=== PATIENT | male | born 1965 | race Caucasian/White ===

== ENCOUNTER 2017-05-25 08:57 | Inpatient (IN) | payer OTHER ==
[2017-05-25] MEDS: BUDESONIDE 1 MG/2 ML NEBU INHALATION STA ×2 (09:08→09:10)
[2017-05-25] MEDS: IPRATROPIUM-ALBUTEROL 3 ML NEB INHALATION STA (09:09)
[2017-05-25] MEDS ORDERED: methylPREDNISolone SOD SUCCI 125 MG/2 ML VIAL IV STA (09:11)
[2017-05-25] MEDS ORDERED: ALBUTEROL NEBULIZED 2.5 MG/3 ML INHALATION STA (09:11)
[2017-05-25] MEDS ORDERED: SODIUM CHLORIDE 0.9% 1,000 ML IV STA (09:11)
[2017-05-25] MEDS ORDERED: IPRATROPIUM 0.5 MG/2.5 ML NEBU INHALATION STA (09:11)
[2017-05-25] MEDS ORDERED: AZITHROMYCIN 500 MG in SODIUM CHLORIDE 0.9% 250 ML IVPB STA (09:11)
[2017-05-25 09:37] LABS: Basophils # (A) 0.1 k/uL (0-0.2); Basophils % (A) 1 %; Eosinophils # (A) 0.6 k/uL (0-0.7); Eosinophils % (A) 7 %; HCT 47.5 % (39.0-53.0); HGB 16.3 gm/dL (13.0-17.5); Lymphocytes # (A) 1.8 k/uL (1.0-4.8); Lymphocytes % (A) 22 %; MCH 31.1 pg (25.0-35.0); MCHC 34.3 g/dL (31.0-37.0); MCV 90.8 fL (80.0-100.0); Mean Platelet Volume 6.9; Monocytes # (A) 0.5 k/uL (0-1.0); Monocytes % (A) 7 %; Neutrophils % (A) 61 %; Platelet Count 238 k/uL (150-450); RBC 5.23 m/uL (4.30-5.90); RDW 12.3 % (11.5-15.5); WBC 8.3 k/uL (3.8-10.6)
[2017-05-25 09:45] LABS: ALT 53 U/L (21-72); AST 40 U/L (17-59); Albumin 4.5 g/dL (3.5-5.0); Alkaline Phosphatase 114 U/L (38-126); Anion Gap 15 mmol/L; Blood Urea Nitrogen 11 mg/dL (9-20); Calcium 9.7 mg/dL (8.4-10.2); Carbon Dioxide 21 mmol/L (22-30); Chloride 109 mmol/L (98-107); Glucose 101 mg/dL (74-99); Sodium 145 mmol/L (137-145); Total Bilirubin 0.4 mg/dL (0.2-1.3); Total Protein 7.4 g/dL (6.3-8.2)
[2017-05-25 09:54] LABS: Creatine Kinase 56 U/L (55-170)
[2017-05-25 09:56] LABS: ABG Base Excess -0.4 mmol/L; ABG HCO3 25 mmol/L (21-25); ABG Oxygen Saturation 96.5 % (94-97); ABG PCO2 41 mmHg (35-45); ABG PH 7.38 (7.35-7.45); ABG PO2 98 mmHg (83-108); ABG TCO2 26 mmol/L (19-24)
[2017-05-25 09:59] LABS: D-Dimer 0.48 mg/L FEU (<0.60); Partial Thromboplastin Time 21.7 sec (22.0-30.0); Prothrombin Time 9.6 sec (9.0-12.0)
--- NOTE | 2017-05-25 09:59 | ED ---
SOB HPI - General Chief Complaint: Shortness of Breath Stated Complaint: loan, copd Time Seen by Provider: 05/25/17 09:07 Source: patient Mode of arrival: EMS Limitations: no limitations - History of Present Illness Initial Comments: 51 years old male comes in with a shortness of breath he said shortness of breath is a chronic he been smoking down since he was a very little boy any more than 40 years and now is complaining about the chest pain he been coughing up a bunch of phlegm and it does hurt to take a deep breath and cough he denies any abdominal pain no frequency urgency dysuria no symptoms of TIA or CVA - Related Data Home Medications Medication Instructions Recorded Confirmed Albuterol Inhaler [Ventolin Hfa 1 - 2 puff INHALATION RT-Q4H PRN 05/25/17 Inhaler] Ipratropium/Albuterol Sulfate 1 puff INHALATION RT-BID PRN 05/25/17 05/25/17 [Combivent Respimat Inhaler] Omeprazole 20 mg PO DAILY 05/25/17 05/25/17 Allergies Allergy/AdvReac Type Severity Reaction Status Date / Time No Known Allergies Allergy Verified 05/25/17 09:54 Review of Systems ROS Statement: Those systems with pertinent positive or pertinent negative responses have been documented in the HPI. ROS Other: All systems not noted in ROS Statement are negative. Past Medical History Past Medical History: COPD, Hypertension History of Any Multi-Drug Resistant Organisms: None Reported Past Surgical History: Hernia Repair Additional Past Surgical History / Comment(s): Head injury, Past Psychological History: No Psychological Hx Reported Smoking Status: Former smoker Past Alcohol Use History: Daily Past Drug Use History: None Reported General Exam - General Exam Comments Initial Comments: General: The patient is awake , it is in severe distress he is using his accessory muscles respiratory rate is 32 Skin: Skin is warm and dry and no rashes or lesions are noted. Eye: Pupils are equal, round and reactive to light, extra-ocular movements are intact; there is normal conjunctiva bilaterally. Ears, nose, mouth and throat: There are moist mucous membranes and no oral lesions. Neck: The neck is supple, there is no tenderness Cardiovascular: There is a regular rate and rhythm. No murmur, rub or gallop is appreciated. Noticed tachycardia heart rate is 126 Respiratory: To auscultation bilateral, poor air exchange crackles on the right base using accessory muscles Gastrointestinal: Soft, non-distended, non-tender abdomen without masses or organomegaly noted. There is no rebound or guarding present. Bowel sounds are unremarkable. Back: There is no tenderness to palpation in the midline. There is no obvious deformity. Musculoskeletal: Normal ROM, no tenderness, There is no pedal edema. There is no calf tenderness or swelling. No cords were appreciated. Neurological: CN II-XII intact, Cranial nerves III through XII are intact. There are no obvious motor or sensory deficits. Coordination appears grossly intact. Speech is normal. Psychiatric: Cooperative, appropriate mood & affect, normal judgment. Limitations: no limitations Course Vital Signs 05/25/17 05/25/17 05/25/17 09:01 09:05 09:24 Temperature 97.4 F L Pulse Rate 126 H 126 H 122 H Respiratory 32 H Rate Blood Pressure 190/125 O2 Sat by Pulse 92 L Oximetry 05/25/17 05/25/17 05/25/17 09:50 09:55 10:37 Temperature Pulse Rate 120 H 121 H 128 H Respiratory 24 Rate Blood Pressure 167/109 O2 Sat by Pulse 98 Oximetry EKG is sinus tachycardia ventricular rate is 126 OK interval is 140 QRS duration is 86 QT/QTC 300/434 review of this EKG reveals T-wave inversion in lead [address] elevation noticed no ST depression noticed Medical Decision Making - Lab Data Result diagrams: 05/25/17 09:19 05/25/17 09:19 Lab Results 05/25/17 05/25/17 05/25/17 Range/Units 08:55 09:19 09:19 WBC 8.3 (3.8-10.6) k/uL RBC 5.23 (4.30-5.90) m/uL Hgb 16.3 (13.0-17.5) gm/dL Hct 47.5 (39.0-53.0) % MCV 90.8 (80.0-100.0) fL MCH 31.1 (25.0-35.0) pg MCHC 34.3 (31.0-37.0) g/dL RDW 12.3 (11.5-15.5) % Plt Count 238 (150-450) k/uL Neutrophils % 61 % Lymphocytes % 22 % Monocytes % 7 % Eosinophils % 7 % Basophils % 1 % Neutrophils # 5.0 (1.3-7.7) k/uL Lymphocytes # 1.8 (1.0-4.8) k/uL Monocytes # 0.5 (0-1.0) k/uL Eosinophils # 0.6 (0-0.7) k/uL Basophils # 0.1 (0-0.2) k/uL PT (9.0-12.0) sec INR (<1.2) APTT (22.0-30.0) sec D-Dimer (<0.60) mg/L FEU Sample Site rt radial ABG pH 7.38 (7.35-7.45) ABG pCO2 41 (35-45) mmHg ABG pO2 98 (83-108) mmHg ABG HCO3 25 (21-25) mmol/L ABG Total CO2 26 H (19-24) mmol/L ABG O2 Saturation 96.5 (94-97) % ABG Base Excess -0.4 mmol/L Jeremiah Test Yes FiO2 40 % Sodium (137-145) mmol/L Potassium (3.5-5.1) mmol/L Chloride (98-107) mmol/L Carbon Dioxide (22-30) mmol/L Anion Gap mmol/L BUN (9-20) mg/dL Creatinine (0.66-1.25) mg/dL Est GFR (CKD-EPI)AfAm (>60 ml/min/1.73 sqM) Est GFR (CKD-EPI)NonAf (>60 ml/min/1.73 sqM) Glucose (74-99) mg/dL Calcium (8.4-10.2) mg/dL Total Bilirubin (0.2-1.3) mg/dL AST (17-59) U/L ALT (21-72) U/L Alkaline Phosphatase (38-126) U/L Total Creatine Kinase 56 (55-170) U/L CK-MB (CK-2) 1.8 (0.0-2.4) ng/mL CK-MB (CK-2) Rel Index 3.2 Troponin I <0.012 (0.000-0.034) ng/mL NT-Pro-B Natriuret Pep pg/mL Total Protein (6.3-8.2) g/dL Albumin (3.5-5.0) g/dL 05/25/17 05/25/17 05/25/17 Range/Units 09:19 09:19 09:19 WBC (3.8-10.6) k/uL RBC (4.30-5.90) m/uL Hgb (13.0-17.5) gm/dL Hct (39.0-53.0) % MCV (80.0-100.0) fL MCH (25.0-35.0) pg MCHC (31.0-37.0) g/dL RDW (11.5-15.5) % Plt Count (150-450) k/uL Neutrophils % % Lymphocytes % % Monocytes % % Eosinophils % % Basophils % % Neutrophils # (1.3-7.7) k/uL Lymphocytes # (1.0-4.8) k/uL Monocytes # (0-1.0) k/uL Eosinophils # (0-0.7) k/uL Basophils # (0-0.2) k/uL PT 9.6 (9.0-12.0) sec INR 1.0 (<1.2) APTT 21.7 L (22.0-30.0) sec D-Dimer 0.48 (<0.60) mg/L FEU Sample Site ABG pH (7.35-7.45) ABG pCO2 (35-45) mmHg ABG pO2 (83-108) mmHg ABG HCO3 (21-25) mmol/L ABG Total CO2 (19-24) mmol/L ABG O2 Saturation (94-97) % ABG Base Excess mmol/L Jeremiah Test FiO2 % Sodium 145 (137-145) mmol/L Potassium 5.0 (3.5-5.1) mmol/L Chloride 109 H (98-107) mmol/L Carbon Dioxide 21 L (22-30) mmol/L Anion Gap 15 mmol/L BUN 11 (9-20) mg/dL Creatinine 0.73 (0.66-1.25) mg/dL Est GFR (CKD-EPI)AfAm >90 (>60 ml/min/1.73 sqM) Est GFR (CKD-EPI)NonAf >90 (>60 ml/min/1.73 sqM) Glucose 101 H (74-99) mg/dL Calcium 9.7 (8.4-10.2) mg/dL Total Bilirubin 0.4 (0.2-1.3) mg/dL AST 40 (17-59) U/L ALT 53 (21-72) U/L Alkaline Phosphatase 114 (38-126) U/L Total Creatine Kinase (55-170) U/L CK-MB (CK-2) (0.0-2.4) ng/mL CK-MB (CK-2) Rel Index Troponin I (0.000-0.034) ng/mL NT-Pro-B Natriuret Pep 39 pg/mL Total Protein 7.4 (6.3-8.2) g/dL Albumin 4.5 (3.5-5.0) g/dL Critical Care Time Total Critical Care Time: 60 Critical Care Time: Arrival his respiratory rate was 32 pulse was 126 and he was using accessory muscles at all is a candidate a BiPAP we did the quick ABGs they were not that bad we started him on a prolonged neb treatments with albuterol and Atrovent and Pulmicort that helped him tremendously within the labs no labs were reviewed CBC is normal, BS metabolic metabolic panel is unremarkable troponin EKG are good chest x-ray showed pneumonia, d-dimer is unremarkable is on the ABGs he be admitted to Dr. Bush service the Dr. Causey he be consulted as a ocular pathologist for him we start him on some antibiotics he still has tachycardia heart rate is 110) he has a prolonged treatment with albuterol were given some fluids and antibiotics to Cover gram-negative and gram-positive and atypical Disposition Clinical Impression: Respiratory distress, Tachycardia, Tachypnea, Pneumonia Disposition: ADMITTED IP TO THIS HOSP Condition: Good Referrals: David Cotto MD [Primary Care Provider] - 1-2 days
[2017-05-25] MEDS ORDERED: SODIUM CHLORIDE 0.9% 1,000 ML IV ONE (10:00)
[2017-05-25 10:08] LABS: Creatine Kinase MB 1.8 ng/mL (0.0-2.4); Troponin I <0.012 ng/mL (0.000-0.034)
--- NOTE | 2017-05-25 10:08 | XR ---
EXAMINATION TYPE: XR chest 2V DATE OF EXAM: 05/25/2017 COMPARISON: NONE INDICATION: Difficulty breathing, dyspnea TECHNIQUE: Frontal and lateral views of the chest are obtained. FINDINGS: The heart size is normal. The pulmonary vasculature is normal. There is a lingular infiltrate present with silhouetting of the cardiac apex. Correlate for atelectas is or pneumonia. Follow-up is recommended. There is some hyperinflation flattening the diaphragms sug gestive of COPD. IMPRESSION: 1. Suspicion of a lingular infiltrate. Correlate for atelectasis or pneumonia. 2. COPD
[2017-05-25] MEDS ORDERED: ENALAPRILAT 1.25 MG/ML 1 ML VIAL IVP STA (11:07)
[2017-05-25] MEDS: methylPREDNISolone SOD SUCCI 125 MG/2 ML VIAL IV SCH ×3 (13:33→23:03)
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
[2017-05-25] MEDS ORDERED: THIAMINE 100 MG/ML 2 ML VIAL IM STA (14:57)
[2017-05-25] MEDS ORDERED: LORazepam 2 MG/ML INJ IV PRN ×2 (14:57)
[2017-05-25] MEDS: IPRATROPIUM-ALBUTEROL 3 ML NEB INHALATION SCH ×2 (15:21→19:00)
[2017-05-25] MEDS: LOSARTAN 25 MG TAB PO SCH (16:03)
[2017-05-25 16:50] LABS: Glucose,Whole Blood 150 mg/dL (75-99)
[2017-05-25] MEDS ORDERED: THIAMINE 100 MG TAB PO SCH (17:00)
[2017-05-25] MEDS: INSULIN ASPART 100 UNIT/ML 1 ML 10 ML VIAL SQ SCH ×2 (17:42→20:46)
[2017-05-25] MEDS: guaiFENesin SYRUP 100MG/5ML 200 MG/10 ML CUP PO PRN (17:42)
[2017-05-25] MEDS: BUDESONIDE 0.5 MG/2 ML NEBU INHALATION SCH (19:00)
[2017-05-25 20:35] LABS: Glucose,Whole Blood 153 mg/dL (75-99)
[2017-05-25] MEDS: HEPARIN SODIUM,PORCINE 5,000 UNIT/ML 1 ML VIAL SQ SCH (20:46)
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
[2017-05-26] MEDS: IPRATROPIUM-ALBUTEROL 3 ML NEB INHALATION PRN (03:07)
[2017-05-26] MEDS: methylPREDNISolone SOD SUCCI 125 MG/2 ML VIAL IV SCH ×4 (05:52→23:38)
[2017-05-26] MEDS: BUDESONIDE 0.5 MG/2 ML NEBU INHALATION SCH ×2 (07:01→20:02)
[2017-05-26] MEDS: IPRATROPIUM-ALBUTEROL 3 ML NEB INHALATION SCH ×4 (07:01→20:02)
[2017-05-26 07:09] LABS: Glucose,Whole Blood 157 mg/dL (75-99)
--- NOTE | 2017-05-26 07:46 | XR ---
EXAMINATION TYPE: XR chest 1V portable DATE OF EXAM: 05/26/2017 Comparison: 05/25/2021 Clinical History: 51-year-old male with left lower lobe pneumonia Findings: Heart normal size. Aorta and pulmonary vasculature within normal limits. Slight increased patchy righ t upper lobe density. Density along the cardiac apex appears slightly more pronounced. Hyperinflation . Impression: COPD and slightly more confluent left basilar density. Some subtle new patchy right upper lobe densit y. Pneumonia not excluded.
[2017-05-26 07:57] LABS: Basophils % (A) 0 %; Eosinophils # (A) 0.1 k/uL (0-0.7); Eosinophils % (A) 1 %; HCT 44.9 % (39.0-53.0); HGB 15.1 gm/dL (13.0-17.5); Lymphocytes # (A) 0.9 k/uL (1.0-4.8); Lymphocytes % (A) 7 %; MCH 30.5 pg (25.0-35.0); MCHC 33.5 g/dL (31.0-37.0); MCV 90.9 fL (80.0-100.0); Mean Platelet Volume 6.8; Monocytes # (A) 0.4 k/uL (0-1.0); Monocytes % (A) 3 %; Neutrophils # (A) 11.7 k/uL (1.3-7.7); Neutrophils % (A) 89 %; Platelet Count 213 k/uL (150-450); RBC 4.94 m/uL (4.30-5.90); RDW 12.2 % (11.5-15.5); WBC 13.1 k/uL (3.8-10.6)
[2017-05-26 08:11] LABS: ALT 41 U/L (21-72); AST 21 U/L (17-59); Albumin 4.1 g/dL (3.5-5.0); Alkaline Phosphatase 101 U/L (38-126); Anion Gap 12 mmol/L; Blood Urea Nitrogen 10 mg/dL (9-20); Calcium 9.2 mg/dL (8.4-10.2); Carbon Dioxide 22 mmol/L (22-30); Chloride 105 mmol/L (98-107); Glucose 150 mg/dL (74-99); Potassium 4.3 mmol/L (3.5-5.1); Sodium 139 mmol/L (137-145); Total Bilirubin 0.4 mg/dL (0.2-1.3); Total Protein 6.7 g/dL (6.3-8.2)
[2017-05-26] MEDS: INSULIN ASPART 100 UNIT/ML 1 ML 10 ML VIAL SQ SCH ×4 (08:19→21:43)
[2017-05-26] MEDS: LOSARTAN 25 MG TAB PO SCH (08:19)
[2017-05-26] MEDS: cefTRIAXone IN SWFI 1,000 MG/10 ML SYRINGE IVP SCH (08:19)
[2017-05-26] MEDS: HEPARIN SODIUM,PORCINE 5,000 UNIT/ML 1 ML VIAL SQ SCH ×2 (08:19→21:43)
[2017-05-26] MEDS: PANTOPRAZOLE 40 MG TABLET PO SCH (08:19)
[2017-05-26] MEDS: guaiFENesin SYRUP 100MG/5ML 200 MG/10 ML CUP PO PRN (08:19)
[2017-05-26] MEDS ORDERED: AZITHROMYCIN 250 MG TAB PO SCH (09:00)
[2017-05-26 12:30] LABS: Glucose,Whole Blood 128 mg/dL (75-99)
--- NOTE | 2017-05-26 15:13 | P.PN ---
Subjective Progress Note Date: 05/26/17 Principal diagnosis: Left lower lobe and right upper lobe pneumonia, acute COPD exacerbation, history of extensive amount of alcohol consumption, uncontrolled hypertension, acute hypoxic respiratory failure 05/26/2017, patient seen eval reexamined his chest x-ray done at the time admission and today's x-ray reviewed and compared with the prior x-ray patient appears to have a bilateral pneumonia involving the left lower lobe and right upper lobe his blood pressure on 25 mg of Cozaar is basically more stable and improved he still very short of breath get tightness in the chest and wheezing on minimal activity and exertion, care plan discussed with the daughter present at bedside at length Objective - Vital Signs Vital signs: Vital Signs Temp 97.0 F L 05/26/17 06:33 Pulse 86 05/26/17 11:38 Resp 16 05/26/17 06:33 BP 146/87 05/26/17 06:33 Pulse Ox 97 05/26/17 06:33 Intake & Output 05/25/17 05/26/17 05/26/17 18:59 06:59 18:59 Intake Total 300 1299 Output Total 2200 1999 Balance -1900 -701 Weight 65.771 kg Intake: Intake, IV Titration 300 1299 Amount Sodium Chloride 0.9% 1, 300 50 000 ml @ 100 mls/hr IV . Q10H STA Rx#:[id number] Sodium Chloride 0.9% 1, 999 000 ml @ 999 mls/hr IV . Q1H1M ONE Rx#:[id number] cefTAZidime 1 gm In 250 Sodium Chloride 0.9% 50 ml @ 100 mls/hr IVPB ONCE STA Rx#:[id number] Output: Urine 2200 1999 Other: # Voids 6 - Exam General: The patient is awake , it is in severe distress he is using his accessory muscles respiratory rate is 32 Skin: Skin is warm and dry and no rashes or lesions are noted. Eye: Pupils are equal, round and reactive to light, extra-ocular movements are intact; there is normal conjunctiva bilaterally. Ears, nose, mouth and throat: There are moist mucous membranes and no oral lesions. Neck: The neck is supple, there is no tenderness Cardiovascular: There is a regular rate and rhythm. No murmur, rub or gallop is appreciated. Noticed tachycardia heart rate is 126 Respiratory: To auscultation bilateral, poor air exchange crackles on the right base using accessory muscles inspiratory expiratory wheezing and rhonchi are present with coarse breath sounds Gastrointestinal: Soft, non-distended, non-tender abdomen without masses or organomegaly noted. There is no rebound or guarding present. Bowel sounds are unremarkable. Back: There is no tenderness to palpation in the midline. There is no obvious deformity. Musculoskeletal: Normal ROM, no tenderness, There is no pedal edema. There is no calf tenderness or swelling. No cords were appreciated. Neurological: CN II-XII intact, Cranial nerves III through XII are intact. There are no obvious motor or sensory deficits. Coordination appears grossly intact. Speech is normal. Psychiatric: Cooperative, appropriate mood & affect, normal judgment. - Labs CBC & Chem 7: 05/26/17 07:38 05/26/17 07:38 Labs: Abnormal Lab Results - Last 24 Hours (Table) 05/25/17 05/25/17 05/26/17 Range/Units 16:46 20:33 07:02 WBC (3.8-10.6) k/uL Neutrophils # (1.3-7.7) k/uL Lymphocytes # (1.0-4.8) k/uL Creatinine (0.66-1.25) mg/dL Glucose (74-99) mg/dL POC Glucose (mg/dL) 150 H 153 H 157 H (75-99) mg/dL 05/26/17 05/26/17 05/26/17 Range/Units 07:38 07:38 12:05 WBC 13.1 H (3.8-10.6) k/uL Neutrophils # 11.7 H (1.3-7.7) k/uL Lymphocytes # 0.9 L (1.0-4.8) k/uL Creatinine 0.63 L (0.66-1.25) mg/dL Glucose 150 H (74-99) mg/dL POC Glucose (mg/dL) 128 H (75-99) mg/dL Assessment and Plan Assessment: Left lower lobe pneumonia likely mixed bacterial and/or or gram-negative versus aspiration related 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 Right upper lobe pneumonia versus density Uncontrolled hypertension and hypertensive cardiovascular disease Acute hypoxic respirator failure related to multifactorial including pneumonia COPD exacerbation and uncontrolled hypertension Significant history of alcohol consumption intoxication likely Plan: IV gentle rehydration Blood pressure control with antihypertensive agents with IV as needed, can go up on Cozaar to 50 tomorrow if remains stable and blood pressure remains on the higher side Computed tomography scan of the chest without IV contrast Broad-spectrum antibiotics IV steroids Breathing treatment through nebulizer Smoking cessation counseling Alcohol cessation and counseling Time with Patient: Greater than 30
--- NOTE | 2017-05-26 15:47 | CT ---
EXAMINATION TYPE: CT chest wo con DATE OF EXAM: 05/26/2017 COMPARISON: NONE HISTORY: Difficulty breathing CT DLP: 268.8 mGycm. Automated Exposure Control for Dose Reduction was Utilized. TECHNIQUE: CT scan of the thorax is performed without IV contrast. FINDINGS: LUNGS: There are moderate to severe centrilobular and paraseptal emphysematous changes. Scattered abram cified granulomas are seen within the lungs. Few punctate noncalcified pulmonary nodules within the l eft upper lobe on series 4 image 17 measuring 1 to 2 mm and on image 25 within the left upper lobe pe ripherally. Lobulated probable intrafissural fluid is seen on the left with peripheral calcification and thickening up to 1.4 cm on series 4 image 32. In the lower lobe 1 to 2 mm punctate none calcified pulmonary nodules are seen on image 44 similarly numerous punctate calcified and noncalcified 1 to 2 mm pulmonary nodules are seen throughout the right lung. There is suspected to represent sequela of granulomatous change. These are all rounded and smoothly marginated. However, within the right upper lobe there is a 6 mm pulmonary nodule on series 4 image 8 that is non calcified and more suspicious than the above-mentioned 1 to 2 mm pulmonary nodules. Early fibrotic ch anges are seen within the right lung base peripherally. No focal consolidation is seen. There is no pleural effusion or pneumothorax seen. The tracheobronchial tree is patent. Ascending thoracic aort a and main pulmonary artery are within normal limits of size. Aortic root is upper limits normal alistair uring 3.9 cm. MEDIASTINUM: Lack of IV contrast is noted to limit evaluation for mediastinal and especially hilar ad enopathy. There are no definitive greater than 1 cm hilar or mediastinal lymph nodes. No cardiomega ly or pericardial effusion is seen. OTHER: There is diffuse hypoattenuation of the hepatic parenchyma, approaching criteria for hepatic s teatosis. Minimal multilevel degenerative changes of the thoracic spine are seen. IMPRESSION: 1. 6 mm solid right upper lobe pulmonary nodule and elongated density within the left interlobar fiss ure that may represent interfissural fluid or less likely mass. Short-term follow-up is recommended o f these findings to ensure stability with CT in 3-6 months. 2. Moderate to severe centrilobular paraseptal emphysema with early fibrotic changes in the right ara g base. 3. Aortic root measures upper limits of normal approaching criteria for aneurysm. 4. Innumerable punctate bilateral pulmonary nodules are seen, some of which are calcified suggestive of granulomatous disease.
[2017-05-26] MEDS: THIAMINE 100 MG TAB PO SCH (16:50)
[2017-05-26 16:55] LABS: Glucose,Whole Blood 153 mg/dL (75-99)
[2017-05-26 21:01] LABS: Glucose,Whole Blood 138 mg/dL (75-99)
--- NOTE | 2017-05-27 01:09 | P.PN ---
Subjective Progress Note Date: 05/26/17 Principal diagnosis: Acute COPD exacerbation and pneumonia Patient is a 51-year-old male with a known history of hypertension, hyperlipidemia, COPD and alcohol abuse on daily basis came to the hospital with complaints of worsening shortness of breath for the past 2 weeks. Patient does have cough with yellowish to green sputum production. Patient came to the hospital for further evaluation. Patient was tachypneic and tachycardic and hypertensive urgency on admission with SBP around 190. EKG showed sinus tachycardia Chest x-ray showed suspicious for lingular infiltrate Correlate for atelectasis/ pneumonia 05/26/2017 Patient's breathing status is better today. No complaints of chest pain. No fever no chills. Continue to monitor for alcohol withdrawal symptoms. Patient is being continued on IV steroids breathing treatments and antibiotics. Pulmonary is following. Patient is tolerating oral diet. All other review of systems negative except the above Active Medications Generic Name Dose Route Start Last Admin Trade Name Freq PRN Reason Stop Dose Admin Albuterol/Ipratropium 3 ml 05/25/17 10:51 05/26/17 03:07 Duoneb 0.5 Mg-3 Mg/3 Ml Soln INHALATION 3 ml RT-Q4H PRN Administration Shortness Of Breath Or Wheezing Albuterol/Ipratropium 3 ml 05/25/17 16:00 05/26/17 20:02 Duoneb 0.5 Mg-3 Mg/3 Ml Soln INHALATION 3 ml RT-QID ROSI Administration Azithromycin 500 mg 05/26/17 19:30 Zithromax PO DAILY ROSI Budesonide 0.5 mg 05/25/17 20:00 05/26/17 20:02 Pulmicort INHALATION 0.5 mg RT-BID ROSI Administration Ceftriaxone Sodium 1,000 mg 05/26/17 09:00 05/26/17 08:19 Rocephin IVP 1,000 mg Q24HR ROSI Administration Guaifenesin 200 mg 05/25/17 17:27 05/26/17 08:19 Robitussin PO 200 mg Q6H PRN Administration Cough Heparin Sodium (Porcine) 5,000 unit 05/25/17 21:00 05/26/17 21:43 Heparin SQ 5,000 unit Q12HR ROSI Administration Insulin Aspart 0 unit 05/25/17 17:30 05/26/17 21:43 Novolog SQ 1 unit ACHS ROSI Administration Protocol Lorazepam 1 mg 05/25/17 14:57 Ativan IV Q2HR PRN CIWA 8 or 9 Lorazepam 1 mg 05/25/17 14:57 Ativan IV Q1HR PRN CIWA 10 to 15 Lorazepam 2 mg 05/25/17 14:57 Ativan IV 05/27/17 14:57 Q10M PRN CIWA 16 or higher Losartan Potassium 25 mg 05/25/17 14:30 05/26/17 08:19 Cozaar PO 25 mg DAILY ROSI Administration Methylprednisolone Sodium Succinate 60 mg 05/25/17 12:00 05/26/17 23:38 Solu-Medrol IV 60 mg Q6HR ROSI Administration Pantoprazole Sodium 40 mg 05/26/17 07:30 05/26/17 08:19 Protonix PO 40 mg [id number] ROSI Administration Thiamine HCl 100 mg 05/26/17 12:00 05/26/17 16:50 Vitamin B-1 PO 100 mg DAILY@1200 ROSI Administration Objective - Vital Signs Vital signs: Vital Signs Temp 97.8 F 05/26/17 15:00 Pulse 96 05/26/17 20:14 Resp 18 05/26/17 15:00 BP 131/88 05/26/17 15:00 Pulse Ox 98 05/26/17 15:00 Intake & Output 05/26/17 05/26/17 05/27/17 06:59 18:59 06:59 Intake Total 1299 2880 Output Total 1999 Balance -701 2880 Intake: Intake, IV Titration 1299 Amount Sodium Chloride 0.9% 1, 50 000 ml @ 100 mls/hr IV . Q10H STA Rx#:[id number] Sodium Chloride 0.9% 1, 999 000 ml @ 999 mls/hr IV . Q1H1M ONE Rx#:[id number] cefTAZidime 1 gm In 250 Sodium Chloride 0.9% 50 ml @ 100 mls/hr IVPB ONCE STA Rx#:[id number] Oral 2880 Output: Urine 1999 Other: # Voids 4 - Exam PHYSICAL EXAMINATION: Patient is lying in the bed comfortably, no acute distress, awake alert and oriented.. HEENT: Normocephalic. Neck is supple. Pupils reactive. Nostrils clear. Oral cavity is moist. Ears reveal no drainage. Neck reveals no JVD, carotid bruits, or thyromegaly. CHEST EXAMINATION: Trachea is central. Symmetrical expansion. Bilateral rhonchi and wheezing positive. CARDIAC: Normal S1, S2 with no gallops. No murmurs ABDOMEN: Soft. Bowel sounds normal. No organomegaly. No abdominal bruits. Extremities: reveal no edema. No clubbing or cyanosis Neurologically awake, alert, oriented x3 with well-coordinated movements. No focal deficits noted Skin: No rash or skin lesions. Psychiatric: Cooperative. Nonsuicidal Musculoskeletal: No joint swelling or deformity. Normal range of motion. - Labs CBC & Chem 7: 05/26/17 07:38 05/26/17 07:38 Labs: Abnormal Lab Results - Last 24 Hours (Table) 05/26/17 05/26/17 05/26/17 Range/Units 07:02 07:38 07:38 WBC 13.1 H (3.8-10.6) k/uL Neutrophils # 11.7 H (1.3-7.7) k/uL Lymphocytes # 0.9 L (1.0-4.8) k/uL Creatinine 0.63 L (0.66-1.25) mg/dL Glucose 150 H (74-99) mg/dL POC Glucose (mg/dL) 157 H (75-99) mg/dL 05/26/17 05/26/17 05/26/17 Range/Units 12:05 16:42 20:59 WBC (3.8-10.6) k/uL Neutrophils # (1.3-7.7) k/uL Lymphocytes # (1.0-4.8) k/uL Creatinine (0.66-1.25) mg/dL Glucose (74-99) mg/dL POC Glucose (mg/dL) 128 H 153 H 138 H (75-99) mg/dL Assessment and Plan Assessment: Acute COPD exacerbation Acute hypoxic respiratory failure on admission Left lower lobe pneumonia or gram-negative and aspiration suspected Elevated head of the bed at 30 Severe alcohol abuse History of smoking Hypertension Hyperlipidemia Memory impairment GERD Addresses COPD stage IV History of closed head injury 8 years ago DVT prophylaxis with heparin subcu Plan: Patient will be continued on antibiotics in the form of azithromycin and ceftriaxone. Continue with Solu-Medrol and breathing treatments. Thiamine and multivitamins and alcohol withdrawal protocol. Monitor for withdrawal symptoms and follow up closely. Continue with the home medications and further recommendations based on the clinical course. Pulmonary is following. Time with Patient: Greater than 30
[2017-05-27] MEDS: methylPREDNISolone SOD SUCCI 125 MG/2 ML VIAL IV SCH ×3 (05:40→17:49)
[2017-05-27] MEDS: INSULIN ASPART 100 UNIT/ML 1 ML 10 ML VIAL SQ SCH ×4 (07:34→22:01)
[2017-05-27 07:35] LABS: Glucose,Whole Blood 123 mg/dL (75-99)
[2017-05-27] MEDS: IPRATROPIUM-ALBUTEROL 3 ML NEB INHALATION SCH ×4 (07:37→19:55)
[2017-05-27] MEDS: BUDESONIDE 0.5 MG/2 ML NEBU INHALATION SCH ×2 (07:37→19:55)
[2017-05-27] MEDS: AZITHROMYCIN 500 MG TAB PO SCH (08:20)
[2017-05-27] MEDS: PANTOPRAZOLE 40 MG TABLET PO SCH (08:20)
[2017-05-27] MEDS: cefTRIAXone IN SWFI 1,000 MG/10 ML SYRINGE IVP SCH (08:20)
[2017-05-27] MEDS: LOSARTAN 25 MG TAB PO SCH (08:20)
[2017-05-27] MEDS: HEPARIN SODIUM,PORCINE 5,000 UNIT/ML 1 ML VIAL SQ SCH ×2 (08:20→22:00)
[2017-05-27 09:12] LABS: Basophils % (A) 0 %; Eosinophils # (A) 0.1 k/uL (0-0.7); Eosinophils % (A) 0 %; HCT 44.1 % (39.0-53.0); HGB 14.4 gm/dL (13.0-17.5); Lymphocytes # (A) 0.6 k/uL (1.0-4.8); Lymphocytes % (A) 5 %; MCH 30.1 pg (25.0-35.0); MCHC 32.7 g/dL (31.0-37.0); MCV 92.1 fL (80.0-100.0); Mean Platelet Volume 7.2; Monocytes # (A) 0.2 k/uL (0-1.0); Monocytes % (A) 2 %; Neutrophils # (A) 11.8 k/uL (1.3-7.7); Neutrophils % (A) 93 %; Platelet Count 225 k/uL (150-450); RBC 4.79 m/uL (4.30-5.90); RDW 12.5 % (11.5-15.5); WBC 12.7 k/uL (3.8-10.6)
[2017-05-27 09:42] LABS: Anion Gap 11 mmol/L; Blood Urea Nitrogen 18 mg/dL (9-20); Calcium 9.3 mg/dL (8.4-10.2); Carbon Dioxide 25 mmol/L (22-30); Chloride 102 mmol/L (98-107); Glucose 197 mg/dL (74-99); Potassium 4.5 mmol/L (3.5-5.1); Sodium 138 mmol/L (137-145)
[2017-05-27 11:56] LABS: Glucose,Whole Blood 128 mg/dL (75-99)
[2017-05-27] MEDS: THIAMINE 100 MG TAB PO SCH (13:02)
--- NOTE | 2017-05-27 14:25 | P.PN ---
Subjective Progress Note Date: 05/27/17 Principal diagnosis: Left lower lobe and right upper lobe pneumonia, acute COPD exacerbation, history of extensive amount of alcohol consumption, uncontrolled hypertension, acute hypoxic respiratory failure 05/27/2017, patient seen eval reexamined during the rounds clinically slightly better but is still get short of breath on activity and exertion patient has significant wheezing during activity and exertion he remains on broad-spectrum antibiotics breathing treatments steroids laboratory data and medications reviewed, computed tomography scan of the chest reviewed and, patient has a 6 mm right upper lobe nodule density on the left fissure likely fluid accumulation extensive central lobar emphysema has been noted, finding consistent with severe COPD emphysema 05/26/2017, patient seen eval reexamined his chest x-ray done at the time admission and today's x-ray reviewed and compared with the prior x-ray patient appears to have a bilateral pneumonia involving the left lower lobe and right upper lobe his blood pressure on 25 mg of Cozaar is basically more stable and improved he still very short of breath get tightness in the chest and wheezing on minimal activity and exertion, care plan discussed with the daughter present at bedside at length Objective - Vital Signs Vital signs: Vital Signs Temp 97.3 F L 05/27/17 06:02 Pulse 90 05/27/17 11:34 Resp 24 05/27/17 08:00 BP 136/98 05/27/17 06:02 Pulse Ox 97 05/27/17 06:02 Intake & Output 05/26/17 05/27/17 05/27/17 18:59 06:59 18:59 Intake Total 2880 Output Total 2000 Balance 2880 -2000 Intake: Oral 2880 Output: Urine 2000 Other: # Voids 4 # Bowel Movements 1 - Exam General: The patient is awake , it is in severe distress he is using his accessory muscles respiratory rate is 32 Skin: Skin is warm and dry and no rashes or lesions are noted. Eye: Pupils are equal, round and reactive to light, extra-ocular movements are intact; there is normal conjunctiva bilaterally. Ears, nose, mouth and throat: There are moist mucous membranes and no oral lesions. Neck: The neck is supple, there is no tenderness Cardiovascular: There is a regular rate and rhythm. No murmur, rub or gallop is appreciated. Noticed tachycardia heart rate is 126 Respiratory: To auscultation bilateral, poor air exchange crackles on the right base using accessory muscles inspiratory expiratory wheezing and rhonchi are present with coarse breath sounds Gastrointestinal: Soft, non-distended, non-tender abdomen without masses or organomegaly noted. There is no rebound or guarding present. Bowel sounds are unremarkable. Back: There is no tenderness to palpation in the midline. There is no obvious deformity. Musculoskeletal: Normal ROM, no tenderness, There is no pedal edema. There is no calf tenderness or swelling. No cords were appreciated. Neurological: CN II-XII intact, Cranial nerves III through XII are intact. There are no obvious motor or sensory deficits. Coordination appears grossly intact. Speech is normal. Psychiatric: Cooperative, appropriate mood & affect, normal judgment. - Labs CBC & Chem 7: 05/27/17 08:30 05/27/17 08:40 Labs: Abnormal Lab Results - Last 24 Hours (Table) 05/26/17 05/26/17 05/27/17 Range/Units 16:42 20:59 07:33 WBC (3.8-10.6) k/uL Neutrophils # (1.3-7.7) k/uL Lymphocytes # (1.0-4.8) k/uL Glucose (74-99) mg/dL POC Glucose (mg/dL) 153 H 138 H 123 H (75-99) mg/dL 05/27/17 05/27/17 05/27/17 Range/Units 08:30 08:40 11:50 WBC 12.7 H (3.8-10.6) k/uL Neutrophils # 11.8 H (1.3-7.7) k/uL Lymphocytes # 0.6 L (1.0-4.8) k/uL Glucose 197 H (74-99) mg/dL POC Glucose (mg/dL) 128 H (75-99) mg/dL - Imaging and Cardiology Chest x-ray: report reviewed, image reviewed CT scan - chest: report reviewed, image reviewed Assessment and Plan Assessment: Left lower lobe pneumonia likely mixed bacterial and/or or gram-negative versus aspiration related 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 Pleural effusion and loculated intra-fissure fluid left-sided Right upper lobe pneumonia versus density Right upper lobe pulmonary nodule Uncontrolled hypertension and hypertensive cardiovascular disease Acute hypoxic respirator failure related to multifactorial including pneumonia COPD exacerbation and uncontrolled hypertension Significant history of alcohol consumption intoxication likely Plan: IV gentle rehydration, can Hep-Lock IV and encourage patient to drink water Blood pressure control with antihypertensive agents with IV as needed, can go up on Cozaar to 50 mg daily as tolerated Computed tomography scan of the chest without IV contrast Broad-spectrum antibiotics IV steroids Breathing treatment through nebulizer Smoking cessation counseling Alcohol cessation and counseling Time with Patient: Greater than 30
[2017-05-27 17:28] LABS: Glucose,Whole Blood 159 mg/dL (75-99)
--- NOTE | 2017-05-27 18:10 | P.PN ---
Subjective Progress Note Date: 05/27/17 Principal diagnosis: Left lower lobe and right upper lobe pneumonia Acute exacerbation COPD History of alcohol abuse Uncontrolled hypertension Acute hypoxic respiratory failure 05/27/2017, patient seen eval reexamined during the rounds clinically slightly better but is still get short of breath on activity and exertion patient has significant wheezing during activity and exertion he remains on broad-spectrum antibiotics breathing treatments steroids laboratory data and medications reviewed, computed tomography scan of the chest reviewed and, patient has a 6 mm right upper lobe nodule density on the left fissure likely fluid accumulation extensive central lobar emphysema has been noted, finding consistent with severe COPD emphysema Objective - Vital Signs Vital signs: Vital Signs Temp 98.2 F 05/27/17 15:29 Pulse 88 05/27/17 16:00 Resp 18 05/27/17 16:00 BP 177/100 05/27/17 15:29 Pulse Ox 94 L 05/27/17 15:29 Intake & Output 05/26/17 05/27/17 05/27/17 18:59 06:59 18:59 Intake Total 2880 Output Total 2000 Balance 2880 -2000 Intake: Oral 2880 Output: Urine 2000 Other: # Voids 4 3 # Bowel Movements 1 - Exam On exam, alert and oriented x3. HEENT: Conjunctivae normal. eyes normal. NECK: No JVD. No thyroid enlargement. No LNs CARDIOVASCULAR: S1, S2 muffled. No murmur RESPIRATION: Breath sounds diminished in the bases. No rhonchi or crackles. No bronchial breathing. ABDOMEN: Soft, nontender . No guarding. no masses palpable. No ascites, No hepatosplenomegaly.Bowel sounds heard. LEGS: No edema. no swelling NERVOUS SYSTEM: Cranial N 2-12 grossly normal. Moves all 4 limbs. No focal deficits. No sensory deficit. No signs of cerebellar dysfucntion. Skin: no ulcer no rash Joints: No active swelling. No inflammation. Lymphatic system. No LN neck axilla or groin. - Labs CBC & Chem 7: 05/27/17 08:30 05/27/17 08:40 Labs: Abnormal Lab Results - Last 24 Hours (Table) 05/26/17 05/27/17 05/27/17 Range/Units 20:59 07:33 08:30 WBC 12.7 H (3.8-10.6) k/uL Neutrophils # 11.8 H (1.3-7.7) k/uL Lymphocytes # 0.6 L (1.0-4.8) k/uL Glucose (74-99) mg/dL POC Glucose (mg/dL) 138 H 123 H (75-99) mg/dL 05/27/17 05/27/17 05/27/17 Range/Units 08:40 11:50 17:25 WBC (3.8-10.6) k/uL Neutrophils # (1.3-7.7) k/uL Lymphocytes # (1.0-4.8) k/uL Glucose 197 H (74-99) mg/dL POC Glucose (mg/dL) 128 H 159 H (75-99) mg/dL Assessment and Plan Assessment: 1. 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 Pleural effusion and loculated intra-fissure fluid left-sided 3. Right upper lobe pneumonia versus density 4. Right upper lobe pulmonary nodule 5. Uncontrolled hypertension and hypertensive cardiovascular disease 6. Acute hypoxic respirator failure related to multifactorial including pneumonia COPD exacerbation and uncontrolled hypertension 7. Significant history of alcohol consumption intoxication likely Plan: IV gentle rehydration, can Hep-Lock IV and encourage patient to drink water; continue with Blood pressure control with antihypertensive agents with IV as needed, can go up on Cozaar to 50 mg daily as tolerated; continue with Broad- spectrum antibiotics IV steroids per pulmonary recommendations;Patient remains on Breathing treatment through nebulizer; Smoking and alcohol cessation counseling Time with Patient: Greater than 30
[2017-05-27 20:29] LABS: Glucose,Whole Blood 140 mg/dL (75-99)
[2017-05-27] MEDS: IPRATROPIUM-ALBUTEROL 3 ML NEB INHALATION PRN (23:12)
[2017-05-28] MEDS: LORazepam 2 MG/ML INJ IV PRN (00:10)
[2017-05-28] MEDS: methylPREDNISolone SOD SUCCI 125 MG/2 ML VIAL IV SCH ×4 (00:10→17:46)
[2017-05-28] MEDS: IPRATROPIUM-ALBUTEROL 3 ML NEB INHALATION PRN ×2 (03:10→23:35)
[2017-05-28 07:31] LABS: Glucose,Whole Blood 122 mg/dL (75-99)
[2017-05-28 07:34] LABS: Basophils % (A) 0 %; Eosinophils % (A) 0 %; HCT 42.1 % (39.0-53.0); HGB 14.1 gm/dL (13.0-17.5); Lymphocytes # (A) 0.5 k/uL (1.0-4.8); Lymphocytes % (A) 5 %; MCH 30.6 pg (25.0-35.0); MCHC 33.4 g/dL (31.0-37.0); MCV 91.6 fL (80.0-100.0); Mean Platelet Volume 6.6; Monocytes # (A) 0.5 k/uL (0-1.0); Monocytes % (A) 4 %; Neutrophils # (A) 10.8 k/uL (1.3-7.7); Neutrophils % (A) 91 %; Platelet Count 236 k/uL (150-450); RDW 12.2 % (11.5-15.5); WBC 11.9 k/uL (3.8-10.6)
[2017-05-28 07:48] LABS: Anion Gap 9 mmol/L; Blood Urea Nitrogen 19 mg/dL (9-20); Calcium 9.1 mg/dL (8.4-10.2); Carbon Dioxide 29 mmol/L (22-30); Chloride 101 mmol/L (98-107); Glucose 140 mg/dL (74-99); Potassium 5.1 mmol/L (3.5-5.1); Sodium 139 mmol/L (137-145)
[2017-05-28] MEDS: IPRATROPIUM-ALBUTEROL 3 ML NEB INHALATION SCH ×4 (08:44→20:48)
[2017-05-28] MEDS: BUDESONIDE 0.5 MG/2 ML NEBU INHALATION SCH ×2 (08:44→20:48)
[2017-05-28] MEDS: INSULIN ASPART 100 UNIT/ML 1 ML 10 ML VIAL SQ SCH ×4 (09:03→21:40)
[2017-05-28] MEDS: cefTRIAXone IN SWFI 1,000 MG/10 ML SYRINGE IVP SCH (09:04)
[2017-05-28] MEDS: HEPARIN SODIUM,PORCINE 5,000 UNIT/ML 1 ML VIAL SQ SCH ×2 (09:04→21:40)
[2017-05-28] MEDS: AZITHROMYCIN 500 MG TAB PO SCH (09:04)
[2017-05-28] MEDS: PANTOPRAZOLE 40 MG TABLET PO SCH (09:04)
[2017-05-28] MEDS: LOSARTAN 50 MG TAB PO SCH (09:04)
[2017-05-28 12:18] LABS: Glucose,Whole Blood 132 mg/dL (75-99)
[2017-05-28] MEDS: THIAMINE 100 MG TAB PO SCH (13:26)
--- NOTE | 2017-05-28 15:36 | P.PN ---
Subjective Progress Note Date: 05/28/17 Principal diagnosis: Left lower lobe and right upper lobe pneumonia, acute COPD exacerbation, history of extensive amount of alcohol consumption, uncontrolled hypertension, acute hypoxic respiratory failure 05/28/2017, patient seen eval examined during rounds clinically still very short of breath does have intermittent coughing and wheezing especially during expiratory phase labs reviewed medications reviewed computed tomography scan of the chest finding reviewed with the patient's family 05/27/2017, patient seen eval reexamined during the rounds clinically slightly better but is still get short of breath on activity and exertion patient has significant wheezing during activity and exertion he remains on broad-spectrum antibiotics breathing treatments steroids laboratory data and medications reviewed, computed tomography scan of the chest reviewed and, patient has a 6 mm right upper lobe nodule density on the left fissure likely fluid accumulation extensive central lobar emphysema has been noted, finding consistent with severe COPD emphysema 05/26/2017, patient seen eval reexamined his chest x-ray done at the time admission and today's x-ray reviewed and compared with the prior x-ray patient appears to have a bilateral pneumonia involving the left lower lobe and right upper lobe his blood pressure on 25 mg of Cozaar is basically more stable and improved he still very short of breath get tightness in the chest and wheezing on minimal activity and exertion, care plan discussed with the daughter present at bedside at length Objective - Vital Signs Vital signs: Vital Signs Temp 98.8 F 05/28/17 07:00 Pulse 104 H 05/28/17 12:19 Resp 18 05/28/17 08:00 BP 117/82 05/28/17 07:00 Pulse Ox 94 L 05/28/17 07:00 Intake & Output 05/27/17 05/28/17 05/28/17 18:59 06:59 18:59 Intake Total 2400 240 Balance 2400 240 Intake: Oral 2400 240 Other: Voiding Method Toilet Toilet # Voids 3 2 - Exam General: The patient is awake , it is in severe distress he is using his accessory muscles respiratory rate is 32 Skin: Skin is warm and dry and no rashes or lesions are noted. Eye: Pupils are equal, round and reactive to light, extra-ocular movements are intact; there is normal conjunctiva bilaterally. Ears, nose, mouth and throat: There are moist mucous membranes and no oral lesions. Neck: The neck is supple, there is no tenderness Cardiovascular: There is a regular rate and rhythm. No murmur, rub or gallop is appreciated. Noticed tachycardia heart rate is 126 Respiratory: To auscultation bilateral, poor air exchange crackles on the right base using accessory muscles inspiratory expiratory wheezing and rhonchi are present with coarse breath sounds Gastrointestinal: Soft, non-distended, non-tender abdomen without masses or organomegaly noted. There is no rebound or guarding present. Bowel sounds are unremarkable. Back: There is no tenderness to palpation in the midline. There is no obvious deformity. Musculoskeletal: Normal ROM, no tenderness, There is no pedal edema. There is no calf tenderness or swelling. No cords were appreciated. Neurological: CN II-XII intact, Cranial nerves III through XII are intact. There are no obvious motor or sensory deficits. Coordination appears grossly intact. Speech is normal. Psychiatric: Cooperative, appropriate mood & affect, normal judgment. - Labs CBC & Chem 7: 05/28/17 07:02 05/28/17 07:02 Labs: Abnormal Lab Results - Last 24 Hours (Table) 05/27/17 05/27/17 05/28/17 Range/Units 17:25 20:20 06:54 WBC (3.8-10.6) k/uL Neutrophils # (1.3-7.7) k/uL Lymphocytes # (1.0-4.8) k/uL Creatinine (0.66-1.25) mg/dL Glucose (74-99) mg/dL POC Glucose (mg/dL) 159 H 140 H 122 H (75-99) mg/dL 05/28/17 05/28/17 05/28/17 Range/Units 07:02 07:02 12:09 WBC 11.9 H (3.8-10.6) k/uL Neutrophils # 10.8 H (1.3-7.7) k/uL Lymphocytes # 0.5 L (1.0-4.8) k/uL Creatinine 0.60 L (0.66-1.25) mg/dL Glucose 140 H (74-99) mg/dL POC Glucose (mg/dL) 132 H (75-99) mg/dL Assessment and Plan Assessment: Left lower lobe pneumonia likely mixed bacterial and/or or gram-negative versus aspiration related 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 Pleural effusion and loculated intra-fissure fluid left-sided Right upper lobe pneumonia versus density Right upper lobe pulmonary nodule Uncontrolled hypertension and hypertensive cardiovascular disease Acute hypoxic respirator failure related to multifactorial including pneumonia COPD exacerbation and uncontrolled hypertension Significant history of alcohol consumption intoxication likely Plan: IV gentle rehydration, can Hep-Lock IV and encourage patient to drink water Blood pressure control with antihypertensive agents with IV as needed, can go up on Cozaar to 50 mg daily as tolerated Computed tomography scan of the chest without IV contrast findings reviewed patient will require a short-term computed tomography scan in 3 months Broad-spectrum antibiotics IV steroids Breathing treatment through nebulizer Smoking cessation counseling Alcohol cessation and counseling Time with Patient: Greater than 30
--- NOTE | 2017-05-28 16:05 | P.PN ---
Subjective Progress Note Date: 05/28/17 Principal diagnosis: Left lower lobe and right upper lobe pneumonia Acute exacerbation COPD History of alcohol abuse Uncontrolled hypertension Acute hypoxic respiratory failure 05/27/2017, patient seen eval reexamined during the rounds clinically slightly better but is still get short of breath on activity and exertion patient has significant wheezing during activity and exertion he remains on broad-spectrum antibiotics breathing treatments steroids laboratory data and medications reviewed, computed tomography scan of the chest reviewed and, patient has a 6 mm right upper lobe nodule density on the left fissure likely fluid accumulation extensive central lobar emphysema has been noted, finding consistent with severe COPD emphysema 05/28/2017 patient is seen and evaluated in the room at bedside; still remains very short of breath but relates that he has been feeling better than when he came in; patient is having intermittent episodes of coughing and wheezing; CT chest showing 6 mm solid right upper lobe nodule; follow-up in 3-6 months is recommended; moderate to severe emphysema Objective - Vital Signs Vital signs: Vital Signs Temp 98.5 F 05/28/17 15:00 Pulse 94 05/28/17 15:00 Resp 18 05/28/17 15:00 BP 155/101 05/28/17 15:00 Pulse Ox 97 05/28/17 15:00 Intake & Output 05/27/17 05/28/17 05/28/17 18:59 06:59 18:59 Intake Total 2400 440 Balance 2400 440 Intake: Oral 2400 440 Other: Voiding Method Toilet Toilet # Voids 3 2 2 # Bowel Movements 0 - Exam On exam, alert and oriented x3. HEENT: Conjunctivae normal. eyes normal. NECK: No JVD. No thyroid enlargement. No LNs CARDIOVASCULAR: S1, S2 muffled. No murmur RESPIRATION: Breath sounds diminished in the bases. No rhonchi or crackles. No bronchial breathing. ABDOMEN: Soft, nontender . No guarding. no masses palpable. No ascites, No hepatosplenomegaly.Bowel sounds heard. LEGS: No edema. no swelling NERVOUS SYSTEM: Cranial N 2-12 grossly normal. Moves all 4 limbs. No focal deficits. No sensory deficit. No signs of cerebellar dysfucntion. Skin: no ulcer no rash Joints: No active swelling. No inflammation. Lymphatic system. No LN neck axilla or groin. - Labs CBC & Chem 7: 05/28/17 07:02 05/28/17 07:02 Labs: Abnormal Lab Results - Last 24 Hours (Table) 05/27/17 05/27/17 05/28/17 Range/Units 17:25 20:20 06:54 WBC (3.8-10.6) k/uL Neutrophils # (1.3-7.7) k/uL Lymphocytes # (1.0-4.8) k/uL Creatinine (0.66-1.25) mg/dL Glucose (74-99) mg/dL POC Glucose (mg/dL) 159 H 140 H 122 H (75-99) mg/dL 05/28/17 05/28/17 05/28/17 Range/Units 07:02 07:02 12:09 WBC 11.9 H (3.8-10.6) k/uL Neutrophils # 10.8 H (1.3-7.7) k/uL Lymphocytes # 0.5 L (1.0-4.8) k/uL Creatinine 0.60 L (0.66-1.25) mg/dL Glucose 140 H (74-99) mg/dL POC Glucose (mg/dL) 132 H (75-99) mg/dL Assessment and Plan Assessment: 1. 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 Pleural effusion and loculated intra-fissure fluid left-sided 3. Right upper lobe pneumonia versus density 4. Right upper lobe pulmonary nodule 5. Uncontrolled hypertension and hypertensive cardiovascular disease 6. Acute hypoxic respirator failure related to multifactorial including pneumonia COPD exacerbation and uncontrolled hypertension 7. Significant history of alcohol consumption intoxication likely Plan: IV gentle rehydration, can Hep-Lock IV and encourage patient to drink water; continue with Blood pressure control with antihypertensive agents with IV as needed, can go up on Cozaar to 50 mg daily as tolerated; continue with Broad- spectrum antibiotics IV steroids per pulmonary recommendations;Patient remains on Breathing treatment through nebulizer; Smoking and alcohol cessation counseling Time with Patient: Greater than 30
[2017-05-28 17:34] LABS: Glucose,Whole Blood 146 mg/dL (75-99)
[2017-05-28] MEDS: hydrALAZINE HCL 20 MG/ML 1 ML VIAL IVP PRN ×2 (17:55→22:29)
[2017-05-28 20:59] LABS: Glucose,Whole Blood 198 mg/dL (75-99)
[2017-05-28] MEDS: guaiFENesin SYRUP 100MG/5ML 200 MG/10 ML CUP PO PRN (21:41)
[2017-05-29] MEDS: methylPREDNISolone SOD SUCCI 125 MG/2 ML VIAL IV SCH ×5 (00:39→23:33)
[2017-05-29] MEDS: LORazepam 2 MG/ML INJ IV PRN ×2 (00:40→23:33)
[2017-05-29] MEDS: IPRATROPIUM-ALBUTEROL 3 ML NEB INHALATION PRN (03:47)
[2017-05-29] MEDS: BUDESONIDE 0.5 MG/2 ML NEBU INHALATION SCH ×2 (07:22→20:21)
[2017-05-29] MEDS: IPRATROPIUM-ALBUTEROL 3 ML NEB INHALATION SCH ×4 (07:22→20:22)
[2017-05-29 07:31] LABS: Glucose,Whole Blood 151 mg/dL (75-99)
[2017-05-29 08:02] LABS: Basophils % (A) 0 %; Eosinophils # (A) 0.1 k/uL (0-0.7); Eosinophils % (A) 1 %; HCT 45.7 % (39.0-53.0); HGB 15.1 gm/dL (13.0-17.5); Lymphocytes # (A) 0.7 k/uL (1.0-4.8); Lymphocytes % (A) 5 %; MCH 30.5 pg (25.0-35.0); MCHC 33.1 g/dL (31.0-37.0); Monocytes # (A) 0.7 k/uL (0-1.0); Monocytes % (A) 5 %; Neutrophils # (A) 12.7 k/uL (1.3-7.7); Neutrophils % (A) 89 %; Platelet Count 243 k/uL (150-450); RBC 4.96 m/uL (4.30-5.90); RDW 12.4 % (11.5-15.5); WBC 14.3 k/uL (3.8-10.6)
[2017-05-29] MEDS: LOSARTAN 50 MG TAB PO SCH (08:13)
[2017-05-29] MEDS: INSULIN ASPART 100 UNIT/ML 1 ML 10 ML VIAL SQ SCH ×4 (08:13→21:56)
[2017-05-29] MEDS: AZITHROMYCIN 500 MG TAB PO SCH (08:13)
[2017-05-29] MEDS: HEPARIN SODIUM,PORCINE 5,000 UNIT/ML 1 ML VIAL SQ SCH ×2 (08:13→21:56)
[2017-05-29] MEDS: PANTOPRAZOLE 40 MG TABLET PO SCH (08:13)
[2017-05-29 08:16] LABS: Anion Gap 12 mmol/L; Blood Urea Nitrogen 17 mg/dL (9-20); Calcium 9.6 mg/dL (8.4-10.2); Carbon Dioxide 26 mmol/L (22-30); Chloride 101 mmol/L (98-107); Glucose 159 mg/dL (74-99); Potassium 4.3 mmol/L (3.5-5.1); Sodium 139 mmol/L (137-145)
[2017-05-29] MEDS: cefTRIAXone IN SWFI 1,000 MG/10 ML SYRINGE IVP SCH (08:16)
[2017-05-29 11:51] LABS: Glucose,Whole Blood 98 mg/dL (75-99)
[2017-05-29] MEDS: THIAMINE 100 MG TAB PO SCH (13:02)
[2017-05-29 17:24] LABS: Glucose,Whole Blood 106 mg/dL (75-99)
--- NOTE | 2017-05-29 17:49 | P.PN ---
Subjective Progress Note Date: 05/29/17 Principal diagnosis: Left lower lobe and right upper lobe pneumonia Acute exacerbation COPD History of alcohol abuse Uncontrolled hypertension Acute hypoxic respiratory failure 05/27/2017, patient seen eval reexamined during the rounds clinically slightly better but is still get short of breath on activity and exertion patient has significant wheezing during activity and exertion he remains on broad-spectrum antibiotics breathing treatments steroids laboratory data and medications reviewed, computed tomography scan of the chest reviewed and, patient has a 6 mm right upper lobe nodule density on the left fissure likely fluid accumulation extensive central lobar emphysema has been noted, finding consistent with severe COPD emphysema 05/28/2017 patient is seen and evaluated in the room at bedside; still remains very short of breath but relates that he has been feeling better than when he came in; patient is having intermittent episodes of coughing and wheezing; CT chest showing 6 mm solid right upper lobe nodule; follow-up in 3-6 months is recommended; moderate to severe emphysema 05/29/2017; Patient seen and evaluated in the room at bedside; patient's daughter is at bedside; patient relates he's been told by pulmonary service that he will be discharged in next 48 hours; patient remains on antibiotics, steroids and nebulizer treatments with bronchodilator and steroids Objective - Vital Signs Vital signs: Vital Signs Temp 98.6 F 05/29/17 15:00 Pulse 82 05/29/17 15:46 Resp 20 05/29/17 15:00 BP 157/69 05/29/17 15:00 Pulse Ox 97 05/29/17 15:00 Intake & Output 05/28/17 05/29/17 05/29/17 18:59 06:59 18:59 Intake Total 440 1500 480 Balance 440 1500 480 Intake: Oral 440 1500 480 Other: Voiding Method Toilet Toilet Toilet # Voids 2 1 2 # Bowel Movements 0 - Exam On exam, alert and oriented x3. HEENT: Conjunctivae normal. eyes normal. NECK: No JVD. No thyroid enlargement. No LNs CARDIOVASCULAR: S1, S2 muffled. No murmur RESPIRATION: Breath sounds diminished in the bases. No rhonchi or crackles. No bronchial breathing. ABDOMEN: Soft, nontender . No guarding. no masses palpable. No ascites, No hepatosplenomegaly.Bowel sounds heard. LEGS: No edema. no swelling NERVOUS SYSTEM: Cranial N 2-12 grossly normal. Moves all 4 limbs. No focal deficits. No sensory deficit. No signs of cerebellar dysfucntion. Skin: no ulcer no rash Joints: No active swelling. No inflammation. Lymphatic system. No LN neck axilla or groin. - Labs CBC & Chem 7: 05/29/17 07:40 05/29/17 07:40 Labs: Abnormal Lab Results - Last 24 Hours (Table) 05/28/17 05/29/17 05/29/17 Range/Units 20:57 07:20 07:40 WBC 14.3 H (3.8-10.6) k/uL Neutrophils # 12.7 H (1.3-7.7) k/uL Lymphocytes # 0.7 L (1.0-4.8) k/uL Creatinine (0.66-1.25) mg/dL Glucose (74-99) mg/dL POC Glucose (mg/dL) 198 H 151 H (75-99) mg/dL 05/29/17 05/29/17 Range/Units 07:40 17:19 WBC (3.8-10.6) k/uL Neutrophils # (1.3-7.7) k/uL Lymphocytes # (1.0-4.8) k/uL Creatinine 0.60 L (0.66-1.25) mg/dL Glucose 159 H (74-99) mg/dL POC Glucose (mg/dL) 106 H (75-99) mg/dL Assessment and Plan Assessment: 1. 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 Pleural effusion and loculated intra-fissure fluid left-sided 3. Right upper lobe pneumonia versus density 4. Right upper lobe pulmonary nodule 5. Uncontrolled hypertension and hypertensive cardiovascular disease 6. Acute hypoxic respirator failure related to multifactorial including pneumonia COPD exacerbation and uncontrolled hypertension 7. Significant history of alcohol consumption intoxication likely Plan: IV gentle rehydration, can Hep-Lock IV and encourage patient to drink water; continue with Blood pressure control with antihypertensive agents with IV as needed, can go up on Cozaar to 50 mg daily as tolerated; continue with Broad- spectrum antibiotics IV steroids per pulmonary recommendations;Patient remains on Breathing treatment through nebulizer; Smoking and alcohol cessation counseling Time with Patient: Greater than 30
[2017-05-29 20:53] LABS: Glucose,Whole Blood 106 mg/dL (75-99)
[2017-05-30] MEDS: guaiFENesin SYRUP 100MG/5ML 200 MG/10 ML CUP PO PRN ×2 (04:08→14:59)
[2017-05-30] MEDS: methylPREDNISolone SOD SUCCI 125 MG/2 ML VIAL IV SCH ×2 (05:52→12:01)
[2017-05-30] MEDS: IPRATROPIUM-ALBUTEROL 3 ML NEB INHALATION SCH ×3 (07:07→15:35)
[2017-05-30] MEDS: BUDESONIDE 0.5 MG/2 ML NEBU INHALATION SCH (07:07)
[2017-05-30 07:27] LABS: Glucose,Whole Blood 144 mg/dL (75-99)
[2017-05-30] MEDS: INSULIN ASPART 100 UNIT/ML 1 ML 10 ML VIAL SQ SCH ×2 (07:42→11:57)
[2017-05-30] MEDS: HEPARIN SODIUM,PORCINE 5,000 UNIT/ML 1 ML VIAL SQ SCH (07:43)
[2017-05-30] MEDS: AZITHROMYCIN 500 MG TAB PO SCH (07:43)
[2017-05-30] MEDS: cefTRIAXone IN SWFI 1,000 MG/10 ML SYRINGE IVP SCH (07:43)
[2017-05-30] MEDS: PANTOPRAZOLE 40 MG TABLET PO SCH (07:43)
[2017-05-30] MEDS: LOSARTAN 50 MG TAB PO SCH (07:44)
[2017-05-30 08:07] LABS: Basophils % (A) 0 %; Eosinophils % (A) 0 %; HCT 45.4 % (39.0-53.0); HGB 14.8 gm/dL (13.0-17.5); Lymphocytes # (A) 0.6 k/uL (1.0-4.8); Lymphocytes % (A) 5 %; MCH 30.1 pg (25.0-35.0); MCHC 32.7 g/dL (31.0-37.0); MCV 92.1 fL (80.0-100.0); Mean Platelet Volume 7.1; Monocytes % (A) 7 %; Neutrophils # (A) 11.7 k/uL (1.3-7.7); Neutrophils % (A) 87 %; Platelet Count 269 k/uL (150-450); RBC 4.93 m/uL (4.30-5.90); RDW 12.3 % (11.5-15.5); WBC 13.5 k/uL (3.8-10.6)
[2017-05-30 08:13] LABS: Anion Gap 8 mmol/L; Blood Urea Nitrogen 21 mg/dL (9-20); Calcium 9.1 mg/dL (8.4-10.2); Carbon Dioxide 32 mmol/L (22-30); Chloride 99 mmol/L (98-107); Glucose 133 mg/dL (74-99); Potassium 4.2 mmol/L (3.5-5.1); Sodium 139 mmol/L (137-145)
[2017-05-30 11:53] LABS: Glucose,Whole Blood 118 mg/dL (75-99)
[2017-05-30] MEDS: THIAMINE 100 MG TAB PO SCH (12:02)
[2017-05-30 15:26] VITALS: BP 134/80; PULSE 87; RESP 18; TEMP 98.4
[2017-05-30] MEDS ORDERED: predniSONE 50 MG TAB PO STA (15:34)
--- NOTE | 2017-05-30 19:20 | P.PN ---
Subjective Progress Note Date: 05/29/17 (Late entry note) Principal diagnosis: Left lower lobe and right upper lobe pneumonia, acute COPD exacerbation, history of extensive amount of alcohol consumption, uncontrolled hypertension, acute hypoxic respiratory failure 05/29/2017, patient seen and evaluated examined during the rounds he still have intermittent cough congestion and wheezing but severity has improved patient is slightly tremulous but no evidence for DT all withdrawal has been noted, patient expresses desire to be discharged 24-48 hours, CT scan finding reviewed with the patient 05/28/2017, patient seen eval examined during rounds clinically still very short of breath does have intermittent coughing and wheezing especially during expiratory phase labs reviewed medications reviewed computed tomography scan of the chest finding reviewed with the patient's family 05/27/2017, patient seen eval reexamined during the rounds clinically slightly better but is still get short of breath on activity and exertion patient has significant wheezing during activity and exertion he remains on broad-spectrum antibiotics breathing treatments steroids laboratory data and medications reviewed, computed tomography scan of the chest reviewed and, patient has a 6 mm right upper lobe nodule density on the left fissure likely fluid accumulation extensive central lobar emphysema has been noted, finding consistent with severe COPD emphysema 05/26/2017, patient seen eval reexamined his chest x-ray done at the time admission and today's x-ray reviewed and compared with the prior x-ray patient appears to have a bilateral pneumonia involving the left lower lobe and right upper lobe his blood pressure on 25 mg of Cozaar is basically more stable and improved he still very short of breath get tightness in the chest and wheezing on minimal activity and exertion, care plan discussed with the daughter present at bedside at length Objective - Vital Signs Vital signs: Vital Signs Temp 98.4 F 05/30/17 15:00 Pulse 87 05/30/17 15:00 Resp 18 05/30/17 15:00 BP 134/80 05/30/17 15:00 Pulse Ox 96 05/30/17 15:00 Intake & Output 05/30/17 05/30/17 05/31/17 06:59 18:59 06:59 Intake Total 2400 Balance 2400 Intake: Oral 2400 Other: # Voids 2 3 - Exam General: The patient is awake , it is in severe distress he is using his accessory muscles respiratory rate is 32 Skin: Skin is warm and dry and no rashes or lesions are noted. Eye: Pupils are equal, round and reactive to light, extra-ocular movements are intact; there is normal conjunctiva bilaterally. Ears, nose, mouth and throat: There are moist mucous membranes and no oral lesions. Neck: The neck is supple, there is no tenderness Cardiovascular: There is a regular rate and rhythm. No murmur, rub or gallop is appreciated. Noticed tachycardia heart rate is 126 Respiratory: To auscultation bilateral, poor air exchange crackles on the right base using accessory muscles inspiratory expiratory wheezing and rhonchi are present with coarse breath sounds Gastrointestinal: Soft, non-distended, non-tender abdomen without masses or organomegaly noted. There is no rebound or guarding present. Bowel sounds are unremarkable. Back: There is no tenderness to palpation in the midline. There is no obvious deformity. Musculoskeletal: Normal ROM, no tenderness, There is no pedal edema. There is no calf tenderness or swelling. No cords were appreciated. Neurological: CN II-XII intact, Cranial nerves III through XII are intact. There are no obvious motor or sensory deficits. Coordination appears grossly intact. Speech is normal. Psychiatric: Cooperative, appropriate mood & affect, normal judgment. - Labs CBC & Chem 7: 05/30/17 07:20 05/30/17 07:20 Labs: Abnormal Lab Results - Last 24 Hours (Table) 05/29/17 05/30/17 05/30/17 Range/Units 20:51 07:06 07:20 WBC 13.5 H (3.8-10.6) k/uL Neutrophils # 11.7 H (1.3-7.7) k/uL Lymphocytes # 0.6 L (1.0-4.8) k/uL Carbon Dioxide (22-30) mmol/L BUN (9-20) mg/dL Glucose (74-99) mg/dL POC Glucose (mg/dL) 106 H 144 H (75-99) mg/dL 05/30/17 05/30/17 Range/Units 07:20 11:50 WBC (3.8-10.6) k/uL Neutrophils # (1.3-7.7) k/uL Lymphocytes # (1.0-4.8) k/uL Carbon Dioxide 32 H (22-30) mmol/L BUN 21 H (9-20) mg/dL Glucose 133 H (74-99) mg/dL POC Glucose (mg/dL) 118 H (75-99) mg/dL Assessment and Plan Assessment: Left lower lobe pneumonia likely mixed bacterial and/or or gram-negative versus aspiration related 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 Pleural effusion and loculated intra-fissure fluid left-sided Right upper lobe pneumonia versus density Right upper lobe pulmonary nodule Uncontrolled hypertension and hypertensive cardiovascular disease Acute hypoxic respirator failure related to multifactorial including pneumonia COPD exacerbation and uncontrolled hypertension Significant history of alcohol consumption intoxication likely Plan: IV gentle rehydration, can Hep-Lock IV and encourage patient to drink water Blood pressure control with antihypertensive agents with IV as needed, can go up on Cozaar to 50 mg daily as tolerated Computed tomography scan of the chest without IV contrast findings reviewed patient will require a short-term computed tomography scan in 3 months Broad-spectrum antibiotics IV steroids Breathing treatment through nebulizer Smoking cessation counseling Alcohol cessation and counseling Time with Patient: Greater than 30
--- NOTE | 2017-05-30 19:22 | P.PN ---
Subjective Progress Note Date: 05/30/17 Principal diagnosis: Left lower lobe and right upper lobe pneumonia, acute COPD exacerbation, history of extensive amount of alcohol consumption, uncontrolled hypertension, acute hypoxic respiratory failure 05/30/2017, patient seen eval examined care plan discussed with the daughter present at bedside respirator status significantly improved his wheezing has improved significantly able to ambulate oxygen remains stable, care plan discussed with the primary service 05/29/2017, patient seen and evaluated examined during the rounds he still have intermittent cough congestion and wheezing but severity has improved patient is slightly tremulous but no evidence for DT all withdrawal has been noted, patient expresses desire to be discharged 24-48 hours, CT scan finding reviewed with the patient 05/28/2017, patient seen eval examined during rounds clinically still very short of breath does have intermittent coughing and wheezing especially during expiratory phase labs reviewed medications reviewed computed tomography scan of the chest finding reviewed with the patient's family 05/27/2017, patient seen eval reexamined during the rounds clinically slightly better but is still get short of breath on activity and exertion patient has significant wheezing during activity and exertion he remains on broad-spectrum antibiotics breathing treatments steroids laboratory data and medications reviewed, computed tomography scan of the chest reviewed and, patient has a 6 mm right upper lobe nodule density on the left fissure likely fluid accumulation extensive central lobar emphysema has been noted, finding consistent with severe COPD emphysema 05/26/2017, patient seen eval reexamined his chest x-ray done at the time admission and today's x-ray reviewed and compared with the prior x-ray patient appears to have a bilateral pneumonia involving the left lower lobe and right upper lobe his blood pressure on 25 mg of Cozaar is basically more stable and improved he still very short of breath get tightness in the chest and wheezing on minimal activity and exertion, care plan discussed with the daughter present at bedside at length Objective - Vital Signs Vital signs: Vital Signs Temp 98.4 F 05/30/17 15:00 Pulse 87 05/30/17 15:00 Resp 18 05/30/17 15:00 BP 134/80 05/30/17 15:00 Pulse Ox 96 05/30/17 15:00 Intake & Output 05/30/17 05/30/17 05/31/17 06:59 18:59 06:59 Intake Total 2400 Balance 2400 Intake: Oral 2400 Other: # Voids 2 3 - Exam General: The patient is awake , it is in severe distress he is using his accessory muscles respiratory rate is 32 Skin: Skin is warm and dry and no rashes or lesions are noted. Eye: Pupils are equal, round and reactive to light, extra-ocular movements are intact; there is normal conjunctiva bilaterally. Ears, nose, mouth and throat: There are moist mucous membranes and no oral lesions. Neck: The neck is supple, there is no tenderness Cardiovascular: There is a regular rate and rhythm. No murmur, rub or gallop is appreciated. Noticed tachycardia heart rate is 126 Respiratory: To auscultation bilateral, poor air exchange significant improved air entry note wheezes rhonchi or noted Gastrointestinal: Soft, non-distended, non-tender abdomen without masses or organomegaly noted. There is no rebound or guarding present. Bowel sounds are unremarkable. Back: There is no tenderness to palpation in the midline. There is no obvious deformity. Musculoskeletal: Normal ROM, no tenderness, There is no pedal edema. There is no calf tenderness or swelling. No cords were appreciated. Neurological: CN II-XII intact, Cranial nerves III through XII are intact. There are no obvious motor or sensory deficits. Coordination appears grossly intact. Speech is normal. Psychiatric: Cooperative, appropriate mood & affect, normal judgment. - Labs CBC & Chem 7: 05/30/17 07:20 05/30/17 07:20 Labs: Abnormal Lab Results - Last 24 Hours (Table) 05/29/17 05/30/17 05/30/17 Range/Units 20:51 07:06 07:20 WBC 13.5 H (3.8-10.6) k/uL Neutrophils # 11.7 H (1.3-7.7) k/uL Lymphocytes # 0.6 L (1.0-4.8) k/uL Carbon Dioxide (22-30) mmol/L BUN (9-20) mg/dL Glucose (74-99) mg/dL POC Glucose (mg/dL) 106 H 144 H (75-99) mg/dL 05/30/17 05/30/17 Range/Units 07:20 11:50 WBC (3.8-10.6) k/uL Neutrophils # (1.3-7.7) k/uL Lymphocytes # (1.0-4.8) k/uL Carbon Dioxide 32 H (22-30) mmol/L BUN 21 H (9-20) mg/dL Glucose 133 H (74-99) mg/dL POC Glucose (mg/dL) 118 H (75-99) mg/dL Assessment and Plan Assessment: Equal cytosis likely related pneumonia and steroids clinically patient has improved significantly Left lower lobe pneumonia likely mixed bacterial and/or or gram-negative versus aspiration related 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 Pleural effusion and loculated intra-fissure fluid left-sided Right upper lobe pneumonia versus density Right upper lobe pulmonary nodule Uncontrolled hypertension and hypertensive cardiovascular disease Acute hypoxic respirator failure related to multifactorial including pneumonia COPD exacerbation and uncontrolled hypertension Significant history of alcohol consumption intoxication likely Plan: Can be switched antibiotics and steroid to oral discharged home with follow-up in office Blood pressure control with antihypertensive agents with IV as needed, can go up on Cozaar to 50 mg daily as tolerated Computed tomography scan of the chest without IV contrast findings reviewed patient and daughter at length will require a short-term computed tomography scan in 3 months Breathing treatment through nebulizer Smoking cessation counseling Alcohol cessation and counseling Time with Patient: Greater than 30
== END 2017-05-30 16:13 | disposition home or self-care (01) | DRG 193 ==
LOC: EC 08:57 → 4MS4W 10:51
PROVIDERS: ADMIT Hospitalist; ATTEND Hospitalist
DX: J15.9 Unspecified bacterial pneumonia (principal); J96.01 Acute respiratory failure with hypoxia; J44.0 Chronic obstructive pulmonary disease with (acute) lower respiratory infection; J44.1 Chronic obstructive pulmonary disease with (acute) exacerbation; J90 Pleural effusion, not elsewhere classified; F10.10 Alcohol abuse, uncomplicated; I16.0 Hypertensive urgency; K21.9 Gastro-esophageal reflux disease without esophagitis; R91.1 Solitary pulmonary nodule; I11.9 Hypertensive heart disease without heart failure; E78.5 Hyperlipidemia, unspecified; Z79.899 Other long term (current) drug therapy; Z87.891 Personal history of nicotine dependence; Z87.820 Personal history of traumatic brain injury; Z71.41 Alcohol abuse counseling and surveillance of alcoholic; Z71.6 Tobacco abuse counseling
CPT/HCPCS: 36415; 36600; 71045; 71046; 71250; 80048; 80053; 82550; 82553; 82805; 83880; 84484; 85025; 85379; 85610; 85730; 93005; 94640; 94644; 94760; 96361; 96365; 96368; 96375; 99291

== ENCOUNTER 2017-07-07 20:44 | Observation (INO) | payer OTHER ==
[2017-07-07] MEDS ORDERED: ALBUTEROL NEBULIZED 2.5 MG/3 ML INHALATION STA (20:54)
[2017-07-07] MEDS ORDERED: methylPREDNISolone SOD SUCCI 125 MG/2 ML VIAL IV STA (20:54)
[2017-07-07 21:20] LABS: Basophils % (A) 0 %; Eosinophils # (A) 0.3 k/uL (0-0.7); Eosinophils % (A) 2 %; HCT 45.7 % (39.0-53.0); HGB 15.2 gm/dL (13.0-17.5); Lymphocytes # (A) 0.5 k/uL (1.0-4.8); Lymphocytes % (A) 3 %; MCH 30.4 pg (25.0-35.0); MCHC 33.3 g/dL (31.0-37.0); MCV 91.4 fL (80.0-100.0); Mean Platelet Volume 9.3; Monocytes # (A) 0.3 k/uL (0-1.0); Monocytes % (A) 2 %; Neutrophils # (A) 15.2 k/uL (1.3-7.7); Neutrophils % (A) 93 %; WBC 16.3 k/uL (3.8-10.6)
[2017-07-07 21:24] LABS: Platelet Count 133 k/uL (150-450)
[2017-07-07] MEDS: IPRATROPIUM 0.5 MG/2.5 ML NEBU INHALATION STA ×3 (21:26→22:13)
[2017-07-07 21:36] LABS: ALT 47 U/L (21-72); AST 32 U/L (17-59); Alkaline Phosphatase 97 U/L (38-126); Anion Gap 14 mmol/L; Blood Urea Nitrogen 27 mg/dL (9-20); Carbon Dioxide 26 mmol/L (22-30); Chloride 94 mmol/L (98-107); Glucose 142 mg/dL (74-99); Magnesium 2.2 mg/dL (1.6-2.3); Potassium 5.2 mmol/L (3.5-5.1); Sodium 134 mmol/L (137-145); Total Bilirubin 0.6 mg/dL (0.2-1.3); Total Protein 7.5 g/dL (6.3-8.2)
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
[2017-07-07 21:50] LABS: INR 1.1 (<1.2); Prothrombin Time 10.6 sec (9.0-12.0)
[2017-07-07 21:53] LABS: Creatine Kinase 40 U/L (55-170)
[2017-07-07 21:54] LABS: Partial Thromboplastin Time 18.8 sec (22.0-30.0)
[2017-07-07 22:07] LABS: Creatine Kinase MB 1.8 ng/mL (0.0-2.4); Troponin I <0.012 ng/mL (0.000-0.034)
--- NOTE | 2017-07-07 22:15 | XR ---
EXAMINATION: XR chest 2V DATE AND TIME: 07/07/2017 9:23 PM ORDERING PROVIDER: Martín Delarosa MD CLINICAL INDICATION: difficulty breathing TECHNIQUE: PA and lateral COMPARISON: 05/26/2017 DESCRIPTION: The pulmonary architectural distortions secondary to severe emphysematous changes are redemonstrated. When compared to the prior chest radiograph of 05/26/2017, there appears to be slightly improved overal l lung inflation. There is no new lung consolidation. Pleural spaces are negative. The cardiomediastinal silhouette and bones and soft tissues are unremarkable. IMPRESSION: NO DEFINITE ACUTE PROCESS.
[2017-07-07] MEDS ORDERED: IPRATROPIUM-ALBUTEROL 3 ML NEB INHALATION PRN (23:40)
[2017-07-08 01:10] VITALS: BMI 26.9
[2017-07-08] MEDS: SODIUM CHLORIDE 0.9% 1,000 ML IV SCH ×2 (01:55→10:59)
[2017-07-08] MEDS: methylPREDNISolone SOD SUCCI 125 MG/2 ML VIAL IV SCH ×3 (05:23→17:38)
[2017-07-08 07:23] LABS: Glucose,Whole Blood 138 mg/dL (75-99)
[2017-07-08] MEDS: IPRATROPIUM-ALBUTEROL 3 ML NEB INHALATION SCH ×5 (07:53→20:32)
[2017-07-08] MEDS: LEVOFLOXACIN 500 MG TAB PO SCH (08:38)
[2017-07-08] MEDS: INSULIN ASPART 100 UNIT/ML 1 ML 10 ML VIAL SQ SCH ×4 (08:38→21:17)
[2017-07-08 09:40] LABS: Basophils % (A) 0 %; Eosinophils % (A) 0 %; HGB 15.2 gm/dL (13.0-17.5); Lymphocytes # (A) 0.6 k/uL (1.0-4.8); Lymphocytes % (A) 5 %; MCH 30.3 pg (25.0-35.0); MCHC 32.3 g/dL (31.0-37.0); MCV 93.6 fL (80.0-100.0); Mean Platelet Volume 6.6; Monocytes # (A) 0.4 k/uL (0-1.0); Monocytes % (A) 3 %; Neutrophils # (A) 12.5 k/uL (1.3-7.7); Neutrophils % (A) 92 %; Platelet Count 203 k/uL (150-450); RBC 5.03 m/uL (4.30-5.90); WBC 13.7 k/uL (3.8-10.6)
[2017-07-08 09:50] LABS: Anion Gap 11 mmol/L; Blood Urea Nitrogen 20 mg/dL (9-20); Calcium 9.2 mg/dL (8.4-10.2); Carbon Dioxide 31 mmol/L (22-30); Chloride 98 mmol/L (98-107); Glucose 118 mg/dL (74-99); Potassium 4.6 mmol/L (3.5-5.1); Sodium 140 mmol/L (137-145)
[2017-07-08 11:35] LABS: Glucose,Whole Blood 111 mg/dL (75-99)
[2017-07-08] MEDS ORDERED: MELATONIN 3 MG TABLET PO PRN (12:49)
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
[2017-07-08] MEDS: LOSARTAN 50 MG TAB PO SCH (14:32)
[2017-07-08 17:23] LABS: Glucose,Whole Blood 124 mg/dL (75-99)
[2017-07-08] MEDS: guaiFENesin 600 MG TABLET.ER PO SCH ×2 (18:02→21:16)
[2017-07-08] MEDS: NICOTINE 21MG/24HR PATCH TRANSDERM SCH (18:59)
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
[2017-07-08] MEDS: BUDESONIDE 1 MG/2 ML NEBU INHALATION SCH ×2 (20:31→20:32)
[2017-07-08 21:05] LABS: Glucose,Whole Blood 190 mg/dL (75-99)
[2017-07-08] MEDS: THEOPHYLLINE 24 HOUR 300 MG CAP.ER.24H PO SCH (21:16)
[2017-07-08] MEDS: PRAVASTATIN SODIUM 40 MG TAB PO SCH (21:16)
[2017-07-09] MEDS: methylPREDNISolone SOD SUCCI 40 MG/ML 1 ML VIAL IV SCH ×3 (00:09→15:06)
[2017-07-09] MEDS: IPRATROPIUM-ALBUTEROL 3 ML NEB INHALATION SCH ×6 (00:11→21:13)
[2017-07-09 00:47] LABS: Hemoglobin A1C 5.4 % (4.0-6.0)
[2017-07-09 07:08] LABS: Glucose,Whole Blood 152 mg/dL (75-99)
[2017-07-09] MEDS: BUDESONIDE 1 MG/2 ML NEBU INHALATION SCH ×2 (07:33→21:13)
[2017-07-09] MEDS: guaiFENesin 600 MG TABLET.ER PO SCH ×2 (07:54→20:44)
[2017-07-09] MEDS: LOSARTAN 50 MG TAB PO SCH (07:54)
[2017-07-09] MEDS: THEOPHYLLINE 24 HOUR 300 MG CAP.ER.24H PO SCH ×2 (07:54→20:44)
[2017-07-09] MEDS: LEVOFLOXACIN 500 MG TAB PO SCH (07:54)
[2017-07-09] MEDS: PANTOPRAZOLE 40 MG TABLET PO SCH (07:54)
[2017-07-09] MEDS: INSULIN ASPART 100 UNIT/ML 1 ML 10 ML VIAL SQ SCH ×4 (07:55→20:42)
[2017-07-09] MEDS: NICOTINE 21MG/24HR PATCH TRANSDERM SCH (07:55)
[2017-07-09] MEDS: THIAMINE 100 MG TAB PO SCH (11:06)
[2017-07-09 13:01] LABS: Glucose,Whole Blood 82 mg/dL (75-99)
[2017-07-09 17:11] LABS: Glucose,Whole Blood 153 mg/dL (75-99)
--- NOTE | 2017-07-09 18:05 | P.PN ---
Subjective Progress Note Date: 07/09/17 Principal diagnosis: Acute COPD exacerbation, pulmonary nodule subcentimeter, purulent tracheobronchitis, history of alcohol consumption, hypertension hypertensive cardiovascular disease, history of smoking and nicotine use, chronic insomnia 07/09/2017, patient seen and evaluated in evaluated and examined during the rounds cuff congestion shortness of breath slightly improved compared to baseline patient has been tolerating breathing treatment antibiotics fairly well denies any hemoptysis still have thick whitish sputum production patient has been tolerating medications well, labs reviewed medications reviewed, blood cultures so far has been negative 51-year-old male who was seen eval reexamined on fourth floor this patient is well-known to me he had a history of severe COPD emphysema also history of lung nodule patient has not been feeling well for the last 1 week of increased cuff congestion shortness of breath and sputum production with those problem patient presented into the [facility] where he was evaluated and admitted he left the hospital I've as he was not happy with the care and came over here to [facility] due to ongoing severe wheezing or shortness of breath has been admitted to the hospital, currently patient is on IV steroids breathing treatments and broad-spectrum antibiotics he feels slightly better him a patient has been smoking one to 2 packs per day with history of alcohol consumption in the recent past past on arrival he was noted to have leukocytosis borderline hyperglycemia and chest x-ray consistent with severe COPD him a on [place] questioning he denies any loss of consciousness or hemiparesis denies any chest pain denies any bowel or bladder dysfunction Objective - Vital Signs Vital signs: Vital Signs Temp 99.0 F 07/09/17 14:33 Pulse 100 07/09/17 15:58 Resp 18 07/09/17 14:33 BP 135/95 07/09/17 14:33 Pulse Ox 97 07/09/17 14:33 Intake & Output 07/08/17 07/09/17 07/09/17 18:59 06:59 18:59 Intake Total 1200 500 Output Total 1000 Balance 200 500 Intake: Oral 1200 500 Output: Urine 1000 Other: Voiding Method Toilet Toilet # Voids 3 2 2 - Exam - Constitutional General appearance: average body habitus, cooperative, disheveled, mild distress - EENT Eyes: EOMI, PERRLA, poor dentition, normal appearance ENT: hard of hearing, normal oropharynx Ears: bilateral: normal - Neck Neck: normal ROM Carotids: bilateral: upstroke normal, bruit absent Thyroid: bilateral: normal size - Respiratory Respiratory: bilateral: diminished, wheezing, prolonged expiration, negative: dullness, rales, rhonchi - Cardiovascular Heart sounds: normal: S1, S2 - Gastrointestinal General gastrointestinal: normal bowel sounds, soft - Integumentary Integumentary: normal, normal turgor - Neurologic Neurologic: CNII-XII intact - Musculoskeletal Musculoskeletal: gait normal, generalized weakness, strength equal bilaterally - Psychiatric Psychiatric: A&O x's 3, appropriate affect, intact judgment & insight - Labs CBC & Chem 7: 07/08/17 08:19 07/08/17 08:19 Labs: Abnormal Lab Results - Last 24 Hours (Table) 07/08/17 07/09/17 07/09/17 Range/Units 21:02 07:01 17:09 POC Glucose (mg/dL) 190 H 152 H 153 H (75-99) mg/dL Microbiology - Last 24 Hours (Table) 07/07/17 21:03 Blood Culture - Preliminary Blood No Growth after 24 hours Assessment and Plan Assessment: Acute COPD exacerbation Purulent tracheobronchitis Acute on chronic hypoxic respirator failure Leukocytosis and hyperglycemia likely related to above however continued patient from steroids cannot be excluded Dyslipidemia Hypertension hypertensive cardiovascular disease History of lung nodules being monitor observe an outpatient setting Plan: Gentle rehydration Broad-spectrum antibiotics Breathing treatments IV steroids Continue home medication Supplemental oxygen Deep breathing exercises incentive spirometry Patient has been consult educated about smoking cessation Patient has been tolerating therapy well overall can be discharged home to follow-up in outpatient setting next 24 hours on oral antibiotics and oral tapering steroids from pulmonary standpoint
[2017-07-09 20:36] LABS: Glucose,Whole Blood 150 mg/dL (75-99)
[2017-07-09] MEDS: PRAVASTATIN SODIUM 40 MG TAB PO SCH (20:43)
[2017-07-09 22:44] VITALS: RESP 16
--- NOTE | 2017-07-09 23:04 | PN ---
PROGRESS NOTE DATE OF SERVICE: 07/09/2017 PRESENTING COMPLAINT: Short of breath, cough. INTERVAL HISTORY: The patient presented with COPD exacerbation and tracheobronchitis, bringing up sputum. Breathing is getting better. Has been up to the bathroom. Tolerating a diet. REVIEW OF SYSTEMS: Done for constitutional, cardiovascular, GI, pulmonary; relevant findings as above. CURRENT MEDICATIONS: Reviewed that include: 1. Bronchodilators. 2. Levaquin. 3. IV Solu-Medrol. EXAMINATION: Temperature 99, pulse 108, respirations 18, blood pressure 135/95, pulse ox 97% on room air. GENERAL APPEARANCE: Sitting up, not in distress. EYES: Pupils equal. Conjunctivae normal. HEENT: External appearance of nose and ears normal. Oral cavity normal. NECK: JVD not raised. Mass not palpable. RESPIRATORY: Effort increased. LUNGS: Decreased breath sounds. Prolonged expiration. Decreased wheezing. Better air entry. CARDIOVASCULAR: First and second sounds normal. No edema. ABDOMEN: Soft, nontender. Liver and spleen not palpable. PSYCHIATRY: Alert and oriented x3. Mood is slightly anxious-appearing. INVESTIGATIONS: Accu-Cheks are noted. ASSESSMENT: 1. Acute severe acute severe chronic obstructive pulmonary disease exacerbation in an ex-smoker with acute tracheobronchitis, improving. 2. Essential hypertension. 3. Right upper lobe lung nodule being followed by Dr. David. 4. Hyperlipidemia. PLAN: Continue current medication and treatment plan, cut back on steroids. Patient is very keen to go home tomorrow. MMODL / IJN: [id number] /
[2017-07-10] MEDS: IPRATROPIUM-ALBUTEROL 3 ML NEB INHALATION SCH ×4 (00:50→11:22)
[2017-07-10 06:32] VITALS: BP 128/82; TEMP 97.8
[2017-07-10 07:21] LABS: Glucose,Whole Blood 107 mg/dL (75-99)
[2017-07-10] MEDS: BUDESONIDE 1 MG/2 ML NEBU INHALATION SCH (07:41)
[2017-07-10] MEDS: INSULIN ASPART 100 UNIT/ML 1 ML 10 ML VIAL SQ SCH ×2 (07:58→12:39)
[2017-07-10] MEDS: NICOTINE 21MG/24HR PATCH TRANSDERM SCH (07:59)
[2017-07-10] MEDS: PANTOPRAZOLE 40 MG TABLET PO SCH (08:00)
[2017-07-10] MEDS: THIAMINE 100 MG TAB PO SCH (08:01)
[2017-07-10] MEDS: LOSARTAN 50 MG TAB PO SCH (08:01)
[2017-07-10] MEDS: THEOPHYLLINE 24 HOUR 300 MG CAP.ER.24H PO SCH (08:01)
[2017-07-10] MEDS: guaiFENesin 600 MG TABLET.ER PO SCH (08:01)
[2017-07-10] MEDS: LEVOFLOXACIN 500 MG TAB PO SCH (08:01)
[2017-07-10] MEDS ORDERED: predniSONE 20 MG TAB PO SCH (09:00)
[2017-07-10 11:37] VITALS: PULSE 92
[2017-07-10 12:50] LABS: Glucose,Whole Blood 136 mg/dL (75-99)
--- NOTE | 2017-07-11 06:18 | DS ---
DISCHARGE SUMMARY DATE OF ADMISSION: 07/07/2017 DATE OF DISCHARGE: 07/10/2017 FINAL DIAGNOSES: 1. Acute severe chronic obstructive pulmonary disease exacerbation in an ex-smoker with acute tracheobronchitis. 2. Essential hypertension. 3. Right upper lobe nodule being followed by Dr. David. 4. Hyperlipidemia. HOSPITAL COURSE: This patient who is an ex-smoker presented with acute severe COPD exacerbation and acute tracheobronchitis. Doing much better at time of discharge, tolerating a diet, up and about. LUNGS: Decreased breath sounds, some wheezing. CARDIOVASCULAR: First and second sounds normal. Care was discussed with the patient. CONSULTATION: Dr. David from Pulmonary. DISCHARGE MEDICATIONS: 1. Ventolin HFA 1 to 2 puffs q.4 p.r.n. 2. Omeprazole 20 mg a day. 3. Pravachol 40 mg at bedtime. 4. Win-24, 300 mg p.o. b.i.d. 5. Requip 0.5 to 1 mg p.o. at bedtime. 6. DuoNeb q.i.d. p.r.n. 7. Cozaar 50 mg p.o. daily. 8. Melatonin 3 mg at bedtime p.r.n. 9. Thiamine 100 mg p.o. daily. 10.Combivent 1 puff t.i.d. 11.Levaquin 500 mg a day for 5 days. 12.Prednisone taper. Follow up with Dr. David in one week; Dr. Cotto in 3 days. MMODL / IJN: [id number] /
--- NOTE | 2017-07-11 12:27 | P.PN ---
Subjective Progress Note Date: 07/10/17 (Late entry note) Principal diagnosis: Acute COPD exacerbation, pulmonary nodule subcentimeter, purulent tracheobronchitis, history of alcohol consumption, hypertension hypertensive cardiovascular disease, history of smoking and nicotine use, chronic insomnia 07/10/2017, patient seen eval examined during the rounds his shortness breath cough is improved congestion has improved as well he expresses desire to go home from pulmonary standpoint patient can be discharged home on oral antibiotics breathing treatments and steroids with follow-up in outpatient setting, patient already have the oxygen, nebulizer machine and medicine at home , patient has been consult educated about smoking cessation 07/09/2017, patient seen and evaluated in evaluated and examined during the rounds cuff congestion shortness of breath slightly improved compared to baseline patient has been tolerating breathing treatment antibiotics fairly well denies any hemoptysis still have thick whitish sputum production patient has been tolerating medications well, labs reviewed medications reviewed, blood cultures so far has been negative 51-year-old male who was seen eval reexamined on fourth floor this patient is well-known to me he had a history of severe COPD emphysema also history of lung nodule patient has not been feeling well for the last 1 week of increased cuff congestion shortness of breath and sputum production with those problem patient presented into the [facility] where he was evaluated and admitted he left the hospital I've as he was not happy with the care and came over here to [facility] due to ongoing severe wheezing or shortness of breath has been admitted to the hospital, currently patient is on IV steroids breathing treatments and broad-spectrum antibiotics he feels slightly better him a patient has been smoking one to 2 packs per day with history of alcohol consumption in the recent past past on arrival he was noted to have leukocytosis borderline hyperglycemia and chest x-ray consistent with severe COPD him a on [place] questioning he denies any loss of consciousness or hemiparesis denies any chest pain denies any bowel or bladder dysfunction Objective - Vital Signs Vital signs: Vital Signs Temp 97.8 F 07/10/17 06:20 Pulse 92 07/10/17 11:36 Resp 16 07/10/17 06:20 BP 128/82 07/10/17 06:20 Pulse Ox 96 07/10/17 06:20 Intake & Output 07/10/17 07/11/17 07/11/17 18:59 06:59 18:59 Other: Voiding Method Toilet # Voids 3 - Exam - Constitutional General appearance: average body habitus, cooperative, disheveled, mild distress - EENT Eyes: EOMI, PERRLA, poor dentition, normal appearance ENT: hard of hearing, normal oropharynx Ears: bilateral: normal - Neck Neck: normal ROM Carotids: bilateral: upstroke normal, bruit absent Thyroid: bilateral: normal size - Respiratory Respiratory: bilateral: diminished, wheezing, prolonged expiration, negative: dullness, rales, rhonchi - Cardiovascular Heart sounds: normal: S1, S2 - Gastrointestinal General gastrointestinal: normal bowel sounds, soft - Integumentary Integumentary: normal, normal turgor - Neurologic Neurologic: CNII-XII intact - Musculoskeletal Musculoskeletal: gait normal, generalized weakness, strength equal bilaterally - Psychiatric Psychiatric: A&O x's 3, appropriate affect, intact judgment & insight - Labs CBC & Chem 7: 07/08/17 08:19 07/08/17 08:19 Labs: Abnormal Lab Results - Last 24 Hours (Table) 07/10/17 Range/Units 12:21 POC Glucose (mg/dL) 136 H (75-99) mg/dL Microbiology - Last 24 Hours (Table) 07/07/17 21:03 Blood Culture - Preliminary Blood No Growth after 72 hours Assessment and Plan Assessment: Acute COPD exacerbation Purulent tracheobronchitis Acute on chronic hypoxic respirator failure Leukocytosis and hyperglycemia likely related to above however continued patient from steroids cannot be excluded Dyslipidemia Hypertension hypertensive cardiovascular disease History of lung nodules being monitor observe an outpatient setting Plan: Can be discharged home on oral antibiotics and prednisone with continuation of home nebulizer oxygen, Breathing treatments Oral steroids Continue home medication Supplemental oxygen Deep breathing exercises incentive spirometry Patient has been consult educated about smoking cessation Patient has been tolerating therapy well overall can be discharged home to follow-up in outpatient setting on oral antibiotics and oral tapering steroids from pulmonary standpoint Time with Patient: Greater than 30
== END 2017-07-10 14:57 | disposition home or self-care (01) ==
LOC: EC 20:44 → 4MS4W 23:41 → INTOOBSV 23:41 → UNDODISIN 07-10 14:57
PROVIDERS: ADMIT Hospitalist; ATTEND Hospitalist
DX: J44.1 Chronic obstructive pulmonary disease with (acute) exacerbation (principal); J44.0 Chronic obstructive pulmonary disease with (acute) lower respiratory infection; J20.9 Acute bronchitis, unspecified; J96.21 Acute and chronic respiratory failure with hypoxia; E78.5 Hyperlipidemia, unspecified; I11.9 Hypertensive heart disease without heart failure; R73.09 Other abnormal glucose; R41.3 Other amnesia; R91.1 Solitary pulmonary nodule; R53.1 Weakness; F12.90 Cannabis use, unspecified, uncomplicated; Z79.899 Other long term (current) drug therapy; Z87.19 Personal history of other diseases of the digestive system; Z87.820 Personal history of traumatic brain injury; Z87.11 Personal history of peptic ulcer disease; Z81.8 Family history of other mental and behavioral disorders
CPT/HCPCS: 96376 ×2; 96361; 96374; 99291; 36415; 94640 ×6; 94760 ×2; 94644; 93005; 83880; 80053; 80048; 82550; 82553; 83605; 83735; 84484; 85025 ×2; 85610; 85730; 87040; 83036; 71046; G0378 ×4; J2920; J2930 ×2; J7512

== ENCOUNTER 2017-11-30 20:20 | Observation (INO) | payer OTHER ==
[2017-11-30 20:58] VITALS: TEMP 98.3
[2017-11-30] MEDS ORDERED: IPRATROPIUM-ALBUTEROL 3 ML NEB INHALATION STA (21:02)
[2017-11-30] MEDS ORDERED: methylPREDNISolone SOD SUCCI 125 MG/2 ML VIAL IV STA (21:47)
--- NOTE | 2017-11-30 21:47 | XR ---
EXAMINATION TYPE: XR chest 2V DATE OF EXAM: 11/30/2017 COMPARISON: 07/07/2017 HISTORY: Difficulty breathing TECHNIQUE: Frontal and lateral views of the chest are obtained. FINDINGS: There is coarsening of the interstitial markings in the right lung and left lung base. The re is no heart failure. Heart size is normal. There is some flattening of the diaphragm. There are ch est leads. Bony thorax appears intact. IMPRESSION: COPD and pulmonary fibrosis. No change compared to old exam. No acute lung disease.
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
[2017-11-30 22:01] LABS: Basophils # (A) 0.1 k/uL (0-0.2); Basophils % (A) 1 %; Eosinophils # (A) 0.8 k/uL (0-0.7); Eosinophils % (A) 10 %; HCT 51.5 % (39.0-53.0); Lymphocytes # (A) 1.1 k/uL (1.0-4.8); Lymphocytes % (A) 14 %; MCH 29.2 pg (25.0-35.0); MCHC 32.9 g/dL (31.0-37.0); MCV 88.7 fL (80.0-100.0); Mean Platelet Volume 7.4; Monocytes # (A) 0.5 k/uL (0-1.0); Monocytes % (A) 6 %; Neutrophils # (A) 5.4 k/uL (1.3-7.7); Neutrophils % (A) 68 %; Platelet Count 309 k/uL (150-450); RBC 5.81 m/uL (4.30-5.90); RDW 13.2 % (11.5-15.5)
[2017-11-30 22:09] LABS: ALT 58 U/L (21-72); AST 59 U/L (17-59); Albumin 4.1 g/dL (3.5-5.0); Alkaline Phosphatase 103 U/L (38-126); Anion Gap 11 mmol/L; Blood Urea Nitrogen 11 mg/dL (9-20); Calcium 9.5 mg/dL (8.4-10.2); Carbon Dioxide 22 mmol/L (22-30); Chloride 105 mmol/L (98-107); Glucose 126 mg/dL (74-99); Magnesium 1.8 mg/dL (1.6-2.3); Potassium 4.5 mmol/L (3.5-5.1); Sodium 138 mmol/L (137-145); Total Bilirubin 0.7 mg/dL (0.2-1.3); Total Protein 6.7 g/dL (6.3-8.2)
[2017-11-30 22:20] LABS: Partial Thromboplastin Time 23.9 sec (22.0-30.0)
[2017-11-30] MEDS ORDERED: IPRATROPIUM-ALBUTEROL 3 ML NEB INHALATION PRN (23:17)
[2017-12-01 00:11] VITALS: RESP 20
[2017-12-01] MEDS: methylPREDNISolone SOD SUCCI 125 MG/2 ML VIAL IV SCH ×3 (01:24→11:59)
[2017-12-01] MEDS: SODIUM CHLORIDE 0.9% 1,000 ML IV SCH ×2 (01:24→11:35)
[2017-12-01 06:24] VITALS: PULSE 89
[2017-12-01 07:30] LABS: Glucose,Whole Blood 145 mg/dL (75-99)
[2017-12-01] MEDS: INSULIN ASPART 100 UNIT/ML 1 ML 10 ML VIAL SQ SCH ×3 (07:47→13:19)
[2017-12-01] MEDS: IPRATROPIUM-ALBUTEROL 3 ML NEB INHALATION SCH ×2 (08:58→11:31)
[2017-12-01] MEDS ORDERED: LOSARTAN 50 MG TAB PO STA (13:24)
[2017-12-01 13:38] VITALS: BP 131/92
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
[2017-12-01 16:54] LABS: Hemoglobin A1C 4.9 % (4.0-6.0)
--- NOTE | 2017-12-02 21:07 | P.DS ---
Providers Date of admission: 11/30/17 23:17 Expected date of discharge: 12/01/17 Attending physician: Cassandra Graham Consults: 11/30/17 23:17 Consult Physician Routine Consulting Provider: Bryson David Consult Reason/Comments: Dyspnea Do you want consulting provider notified?: Yes Primary care physician: [facility] Course: Refer to HPI Patient Condition at Discharge: Fair Plan - Discharge Summary New Discharge Prescriptions: New Budesonide-Formot 160-4.5 Mcg [Symbicort 160-4.5 Mcg Inhaler] 2 puff INHALATION BID #1 inhaler Doxycycline Monohydrate [Monodox] 100 mg PO BID 3 Days #6 cap predniSONE 10 mg PO DAILY #30 tab No Action Albuterol Inhaler [Ventolin Hfa Inhaler] 1 - 2 puff INHALATION RT-Q4H PRN PRN Reason: Shortness Of Breath Omeprazole 20 mg PO DAILY rOPINIRole HCL [Requip] 0.5 - 1 mg PO HS Theophylline 24 Hour [Win-24] 300 mg PO BID Pravastatin Sodium [Pravachol] 40 mg PO HS Ipratropium-Albuterol Nebulize [Duoneb 0.5 mg-3 mg/3 ml Soln] 3 ml INHALATION RT-QID PRN 30 Days #60 ampul.neb PRN Reason: Shortness Of Breath Losartan [Cozaar] 50 mg PO DAILY #30 tab Melatonin 3 mg PO HS PRN #15 tablet PRN Reason: Insomnia Thiamine [Vitamin B-1] 100 mg PO DAILY@1200 #30 tab Ipratropium/Albuterol Sulfate [Combivent Respimat Inhaler] 1 puff INHALATION RT-TID Discharge Medication List Albuterol Inhaler [Ventolin Hfa Inhaler] 1 - 2 puff INHALATION RT-Q4H PRN [History] Omeprazole 20 mg PO DAILY 05/25/17 [History] Pravastatin Sodium [Pravachol] 40 mg PO HS 05/25/17 [History] Theophylline 24 Hour [Win-24] 300 mg PO BID 05/25/17 [History] rOPINIRole HCL [Requip] 0.5 - 1 mg PO HS 05/25/17 [History] Ipratropium-Albuterol Nebulize [Duoneb 0.5 mg-3 mg/3 ml Soln] 3 ml INHALATION RT -QID PRN 30 Days #60 ampul.neb 05/30/17 [Rx] Losartan [Cozaar] 50 mg PO DAILY #30 tab 05/30/17 [Rx] Melatonin 3 mg PO HS PRN #15 tablet 05/30/17 [Rx] Thiamine [Vitamin B-1] 100 mg PO DAILY@1200 #30 tab 05/30/17 [Rx] Ipratropium/Albuterol Sulfate [Combivent Respimat Inhaler] 1 puff INHALATION RT- TID 11/30/17 [History] Budesonide-Formot 160-4.5 Mcg [Symbicort 160-4.5 Mcg Inhaler] 2 puff INHALATION BID #1 inhaler 12/01/17 [Rx] Doxycycline Monohydrate [Monodox] 100 mg PO BID 3 Days #6 cap 12/01/17 [Rx] predniSONE 10 mg PO DAILY #30 tab 12/01/17 [Rx] Follow up Appointment(s)/Referral(s): Bryson David MD [STAFF PHYSICIAN] - 1 Week (OFFICE CLOSED FOR LUNCH, WILL CALL YOU WITH APPOINTMENT TIME. IF HAVEN'T HEARD FROM THEM, PLEASE CALL) David Cotto MD [Primary Care Provider] - 3 Days (OFFICE CLOSED FOR LUNCH, CALL FOR APPOINTMENT) Patient Instructions/Handouts: COPD (Chronic Obstructive Pulmonary Disease) (DC ) Discharge Disposition: HOME SELF-CARE
== END 2017-12-01 14:31 | disposition home or self-care (01) ==
LOC: EC 20:20 → 4MS4W 23:17 → INTOOBSV 23:17 → UNDODISIN 12-01 14:31
PROVIDERS: ADMIT Internal Medicine; ATTEND Internal Medicine
DX: J44.1 Chronic obstructive pulmonary disease with (acute) exacerbation (principal); E88.01 Alpha-1-antitrypsin deficiency; E78.5 Hyperlipidemia, unspecified; I10 Essential (primary) hypertension; G31.84 Mild cognitive impairment of uncertain or unknown etiology; K21.9 Gastro-esophageal reflux disease without esophagitis; Z87.19 Personal history of other diseases of the digestive system; M62.838 Other muscle spasm; R91.1 Solitary pulmonary nodule; Z79.51 Long term (current) use of inhaled steroids; Z79.899 Other long term (current) drug therapy; Z87.11 Personal history of peptic ulcer disease; Z87.820 Personal history of traumatic brain injury; Z87.891 Personal history of nicotine dependence; Z81.8 Family history of other mental and behavioral disorders; E66.9 Obesity, unspecified; Z68.26 Body mass index [BMI] 26.0-26.9, adult
CPT/HCPCS: 96376; 96361; 96374; 99285; 36415; 94640 ×3; 93005; 80053; 83735; 85025; 85610; 85730; 83036; 71046; G0378 ×2; J2930 ×2

== ENCOUNTER 2018-01-29 18:43 | Observation (INO) | payer OTHER ==
[2018-01-29] MEDS ORDERED: IPRATROPIUM-ALBUTEROL 3 ML NEB INHALATION STA (19:14)
[2018-01-29] MEDS ORDERED: methylPREDNISolone SOD SUCCI 125 MG/2 ML VIAL IV STA (19:20)
[2018-01-29] MEDS ORDERED: SODIUM CHLORIDE 0.9% 1,000 ML IV STA (19:20)
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
[2018-01-29 19:33] LABS: Basophils # (A) 0.1 k/uL (0-0.2); Basophils % (A) 1 %; Eosinophils # (A) 0.8 k/uL (0-0.7); Eosinophils % (A) 10 %; HCT 48.9 % (39.0-53.0); HGB 15.9 gm/dL (13.0-17.5); Lymphocytes # (A) 1.8 k/uL (1.0-4.8); Lymphocytes % (A) 22 %; MCH 29.1 pg (25.0-35.0); MCHC 32.6 g/dL (31.0-37.0); MCV 89.1 fL (80.0-100.0); Mean Platelet Volume 6.6; Monocytes # (A) 0.5 k/uL (0-1.0); Monocytes % (A) 6 %; Neutrophils # (A) 4.6 k/uL (1.3-7.7); Neutrophils % (A) 58 %; Platelet Count 296 k/uL (150-450); RBC 5.49 m/uL (4.30-5.90); RDW 13.6 % (11.5-15.5)
[2018-01-29 19:44] LABS: ALT 66 U/L (21-72); AST 48 U/L (17-59); Albumin 4.2 g/dL (3.5-5.0); Alkaline Phosphatase 97 U/L (38-126); Anion Gap 10 mmol/L; Blood Urea Nitrogen 10 mg/dL (9-20); Calcium 9.5 mg/dL (8.4-10.2); Carbon Dioxide 23 mmol/L (22-30); Chloride 105 mmol/L (98-107); Glucose 99 mg/dL (74-99); Potassium 4.5 mmol/L (3.5-5.1); Sodium 138 mmol/L (137-145); Total Bilirubin 0.6 mg/dL (0.2-1.3)
--- NOTE | 2018-01-29 19:54 | XR ---
EXAMINATION TYPE: XR chest 2V DATE OF EXAM: 01/29/2018 COMPARISON: 11/30/2017 HISTORY: Difficulty breathing TECHNIQUE: Frontal and lateral views of the chest are obtained. FINDINGS: There is some coarsening of the lung markings in the mid and lower lung santizo. Heart size is normal. There is no pleural effusion. There is no heart failure. There are chest leads. Bony thor ax is intact. IMPRESSION: Pulmonary fibrotic changes. No change compared to old exam. Normal heart.
[2018-01-29] MEDS ORDERED: CEFDINIR 300 MG CAP PO SCH (21:00)
[2018-01-29 22:04] VITALS: BMI 28.8
[2018-01-29] MEDS ORDERED: IBUPROFEN 200 MG TAB PO PRN (22:56)
[2018-01-29] MEDS ORDERED: LORazepam 2 MG/ML INJ IV PRN ×3 (22:57)
[2018-01-29] MEDS ORDERED: THIAMINE 100 MG/ML 2 ML VIAL IM STA (22:57)
[2018-01-29] MEDS ORDERED: TEMAZEPAM 15 MG CAP PO PRN (23:22)
[2018-01-29] MEDS ORDERED: cloNIDine HCL 0.1 MG TAB PO PRN (23:22)
[2018-01-29] MEDS ORDERED: HYDROcodone/APAP 5-325MG 1 EACH TAB PO PRN (23:22)
[2018-01-29] MEDS: THIAMINE 100 MG TAB PO SCH (23:50)
[2018-01-30] MEDS ORDERED: LEVOFLOXACIN 500MG-D5W PMX 500 MG in DEXTROSE/WATER 1 100ML.BAG IVPB SCH
[2018-01-30] MEDS: methylPREDNISolone SOD SUCCI 125 MG/2 ML VIAL IV SCH ×4 (00:04→17:39)
[2018-01-30] MEDS: IPRATROPIUM-ALBUTEROL 3 ML NEB INHALATION PRN ×2 (00:12→03:53)
[2018-01-30] MEDS: cloNIDine HCL 0.1 MG TAB PO SCH ×4 (01:15→21:09)
[2018-01-30] MEDS: HEPARIN SODIUM,PORCINE 5,000 UNIT/ML 1 ML VIAL SQ SCH ×3 (01:15→21:09)
[2018-01-30 07:31] LABS: Glucose,Whole Blood 155 mg/dL (75-99)
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
[2018-01-30] MEDS: IPRATROPIUM-ALBUTEROL 3 ML NEB INHALATION SCH ×4 (08:15→19:18)
[2018-01-30] MEDS: FORMOTEROL FUMARATE 20 MCG/2 ML NEBU INHALATION SCH ×2 (08:15→19:18)
[2018-01-30] MEDS: BUDESONIDE 1 MG/2 ML NEBU INHALATION SCH ×2 (08:15→19:18)
[2018-01-30] MEDS: INSULIN ASPART 100 UNIT/ML 1 ML 10 ML VIAL SQ SCH ×4 (08:29→21:10)
[2018-01-30] MEDS: MULTIVITAMINS, THERA 1 EACH TAB PO SCH (09:24)
[2018-01-30] MEDS: THIAMINE 100 MG TAB PO SCH ×2 (09:24→16:20)
[2018-01-30] MEDS: PANTOPRAZOLE 40 MG TABLET PO SCH (09:25)
[2018-01-30 10:12] LABS: Basophils % (A) 0 %; Eosinophils % (A) 1 %; HCT 47.2 % (39.0-53.0); HGB 15.3 gm/dL (13.0-17.5); Lymphocytes # (A) 0.5 k/uL (1.0-4.8); Lymphocytes % (A) 10 %; MCH 29.2 pg (25.0-35.0); MCHC 32.3 g/dL (31.0-37.0); MCV 90.3 fL (80.0-100.0); Mean Platelet Volume 7.1; Monocytes # (A) 0.1 k/uL (0-1.0); Monocytes % (A) 1 %; Neutrophils # (A) 4.3 k/uL (1.3-7.7); Neutrophils % (A) 87 %; Platelet Count 271 k/uL (150-450); RBC 5.23 m/uL (4.30-5.90); RDW 13.6 % (11.5-15.5); WBC 4.9 k/uL (3.8-10.6)
[2018-01-30 10:47] LABS: Anion Gap 12 mmol/L; Blood Urea Nitrogen 9 mg/dL (9-20); Calcium 9.3 mg/dL (8.4-10.2); Carbon Dioxide 21 mmol/L (22-30); Chloride 104 mmol/L (98-107); Glucose 208 mg/dL (74-99); Potassium 4.6 mmol/L (3.5-5.1); Sodium 137 mmol/L (137-145)
[2018-01-30 11:40] LABS: Glucose,Whole Blood 160 mg/dL (75-99)
[2018-01-30] MEDS ORDERED: guaiFENesin SYRUP 100MG/5ML 200 MG/10 ML CUP PO PRN (13:01)
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
[2018-01-30] MEDS: guaiFENesin 600 MG TABLET.ER PO SCH ×2 (16:20→21:50)
[2018-01-30] MEDS: LOSARTAN 50 MG TAB PO SCH (16:20)
[2018-01-30 17:22] LABS: Glucose,Whole Blood 194 mg/dL (75-99)
[2018-01-30 18:18] LABS: Hemoglobin A1C 5.4 % (4.0-6.0)
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
[2018-01-30 20:10] LABS: Glucose,Whole Blood 187 mg/dL (75-99)
[2018-01-30 20:15] VITALS: RESP 20
[2018-01-30] MEDS ORDERED: LEVOFLOXACIN 500 MG TAB PO SCH (21:00)
[2018-01-31] MEDS: methylPREDNISolone SOD SUCCI 125 MG/2 ML VIAL IV SCH ×2 (00:12→05:06)
[2018-01-31] MEDS: IPRATROPIUM-ALBUTEROL 3 ML NEB INHALATION PRN ×2 (00:15→04:17)
[2018-01-31 06:43] LABS: Glucose,Whole Blood 144 mg/dL (75-99)
[2018-01-31] MEDS: FORMOTEROL FUMARATE 20 MCG/2 ML NEBU INHALATION SCH (07:03)
[2018-01-31] MEDS: BUDESONIDE 1 MG/2 ML NEBU INHALATION SCH (07:03)
[2018-01-31] MEDS: IPRATROPIUM-ALBUTEROL 3 ML NEB INHALATION SCH ×2 (07:03→10:56)
[2018-01-31] MEDS: INSULIN ASPART 100 UNIT/ML 1 ML 10 ML VIAL SQ SCH (07:49)
[2018-01-31 07:53] VITALS: BP 126/80; TEMP 98.7
[2018-01-31] MEDS: cloNIDine HCL 0.1 MG TAB PO SCH (08:25)
[2018-01-31] MEDS: HEPARIN SODIUM,PORCINE 5,000 UNIT/ML 1 ML VIAL SQ SCH (08:26)
[2018-01-31] MEDS: LOSARTAN 50 MG TAB PO SCH (08:30)
[2018-01-31] MEDS: guaiFENesin 600 MG TABLET.ER PO SCH (08:30)
[2018-01-31] MEDS: PANTOPRAZOLE 40 MG TABLET PO SCH (08:30)
[2018-01-31] MEDS: MULTIVITAMINS, THERA 1 EACH TAB PO SCH (08:30)
[2018-01-31] MEDS: THIAMINE 100 MG TAB PO SCH (08:30)
[2018-01-31 09:51] LABS: Basophils % (A) 0 %; Eosinophils # (A) 0.1 k/uL (0-0.7); Eosinophils % (A) 0 %; HGB 14.5 gm/dL (13.0-17.5); Lymphocytes # (A) 0.4 k/uL (1.0-4.8); Lymphocytes % (A) 3 %; MCH 29.1 pg (25.0-35.0); MCHC 32.1 g/dL (31.0-37.0); MCV 90.5 fL (80.0-100.0); Mean Platelet Volume 7.1; Monocytes # (A) 0.3 k/uL (0-1.0); Monocytes % (A) 3 %; Neutrophils # (A) 12.2 k/uL (1.3-7.7); Neutrophils % (A) 94 %; Platelet Count 252 k/uL (150-450); RBC 4.98 m/uL (4.30-5.90); RDW 13.7 % (11.5-15.5)
[2018-01-31 10:06] LABS: Anion Gap 12 mmol/L; Blood Urea Nitrogen 13 mg/dL (9-20); Calcium 9.5 mg/dL (8.4-10.2); Carbon Dioxide 21 mmol/L (22-30); Chloride 104 mmol/L (98-107); Glucose 201 mg/dL (74-99); Sodium 137 mmol/L (137-145)
--- NOTE | 2018-01-31 10:06 | P.PN ---
Subjective Progress Note Date: 01/31/18 Principal diagnosis: Acute COPD exacerbation, purulent tracheobronchitis, history of subcentimeter lung nodules, mood disorder depression, smoking and nicotine use, generalized anxiety disorder 01/31/2018, patient seen eval examined during the rounds clinically patient has been doing much better awake and alert breathing comfortably he has been walking in the hallway without oxygen feeling good in terms of breathing is still have ongoing wheezing and coarse breath sounds but patient feels it's almost back to the baseline, he expresses desire to be discharged home in case of a discharge and would recommend tapering steroids oral antibiotics and follow up on outpatient setting This is a 52-year-old male well-known to me for a history of small nonspecific lung nodules, end-stage lung disease associated chronic persistent asthma of severe category and severe COPD patient has been an active smoker this patient has not been feeling well on nebulizer therapy for almost a week with increased cough congestion and progressive his sputum production which started turning green patient came into the emergency department for further evaluation and intervention and treatment has been admitted into the hospital I was asked to evaluate this patient further labs reviewed medications reviewed care plan discussed with the patient at length patient is currently being appropriately treated with breathing treatments steroids and antibiotics feeling slightly better,, his chest x-ray suggestive of prominent interstitium related to severe COPD mimicking interstitial lung disease this is a late entry note Objective - Vital Signs Vital signs: Vital Signs Temp 98.7 F 01/31/18 07:52 Pulse 101 H 01/31/18 07:52 Resp 20 01/31/18 07:52 BP 126/80 01/31/18 07:52 Pulse Ox 92 L 01/31/18 08:29 Intake & Output 01/30/18 01/31/18 01/31/18 18:59 06:59 18:59 Intake Total 400 600 Balance 400 600 Intake: Intake, IV Titration 400 600 Amount Sodium Chloride 0.9% 1, 400 600 000 ml @ 75 mls/hr IV . [id number] STA Rx#:[id number] - Exam General appearance: alert, in no apparent distress, ambulating in hallway Head exam: Present: atraumatic Eye exam: Present: normal appearance, PERRL ENT exam: Present: normal oropharynx Neck exam: Present: normal inspection Respiratory exam: Present: respiratory distress, wheezes, accessory muscle use, decreased breath sounds Cardiovascular Exam: Present: tachycardia GI/Abdominal exam: Present: soft. Absent: tenderness Extremities exam: Present: normal inspection. Absent: pedal edema, calf tenderness Back exam: Present: normal inspection Neurological exam: Present: alert Psychiatric exam: Present: normal affect, normal mood Skin exam: Present: normal color - Labs CBC & Chem 7: 01/30/18 08:13 01/30/18 08:13 Labs: Abnormal Lab Results - Last 24 Hours (Table) 01/30/18 01/30/18 01/30/18 Range/Units 08:13 08:13 11:28 Lymphocytes # 0.5 L (1.0-4.8) k/uL Carbon Dioxide 21 L (22-30) mmol/L Glucose 208 H (74-99) mg/dL POC Glucose (mg/dL) 160 H (75-99) mg/dL 01/30/18 01/30/18 01/31/18 Range/Units 17:10 19:57 06:42 Lymphocytes # (1.0-4.8) k/uL Carbon Dioxide (22-30) mmol/L Glucose (74-99) mg/dL POC Glucose (mg/dL) 194 H 187 H 144 H (75-99) mg/dL Assessment and Plan Assessment: Acute COPD exacerbation Purulent tracheobronchitis Acute hypoxic respiratory failure related to above End-stage lung disease secondary severe COPD emphysema History of lung nodules Active smoker and nicotine abuse Plan: Continue breathing treatments Broad-spectrum antibiotics continue oral IV steroids for now but can be switched to oral Agree with discharge planning from pulmonary standpoint with follow-up in outpatient setting Patient can finish oral steroids as well as antibiotics on outpatient setting Time with Patient: Greater than 30
[2018-01-31 10:08] LABS: Potassium 4.8 mmol/L (3.5-5.1)
[2018-01-31 11:06] VITALS: PULSE 74
[2018-01-31 11:40] LABS: Glucose,Whole Blood 113 mg/dL (75-99)
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
== END 2018-01-31 15:01 | disposition home or self-care (01) ==
LOC: EC 18:43 → 4SSUR 20:44 → INTOOBSV 20:44 → UNDODISIN 01-31 15:01
PROVIDERS: ADMIT Internal Medicine; ATTEND Internal Medicine
DX: J44.1 Chronic obstructive pulmonary disease with (acute) exacerbation (principal); J96.01 Acute respiratory failure with hypoxia; J84.9 Interstitial pulmonary disease, unspecified; J44.0 Chronic obstructive pulmonary disease with (acute) lower respiratory infection; J20.9 Acute bronchitis, unspecified; E88.01 Alpha-1-antitrypsin deficiency; J45.50 Severe persistent asthma, uncomplicated; R91.8 Other nonspecific abnormal finding of lung field; I10 Essential (primary) hypertension; F17.210 Nicotine dependence, cigarettes, uncomplicated; F32.9 Major depressive disorder, single episode, unspecified; R41.3 Other amnesia; F41.1 Generalized anxiety disorder; Z79.51 Long term (current) use of inhaled steroids; Z79.899 Other long term (current) drug therapy; Z87.11 Personal history of peptic ulcer disease; Z98.890 Other specified postprocedural states; Z87.19 Personal history of other diseases of the digestive system; Z87.820 Personal history of traumatic brain injury; M62.838 Other muscle spasm; Z81.8 Family history of other mental and behavioral disorders
CPT/HCPCS: 96376 ×2; 96361 ×3; 96365; 96372; 96375; 99285; 36415; 94640 ×5; 94760; 93005; 80053; 80048 ×2; 85025 ×3; 87502; 83036; 71046; G0378 ×3; J1644; J2930 ×3; J1956; 96374

== ENCOUNTER 2018-03-09 18:19 | Inpatient (IN) | payer OTHER ==
[2018-03-09] MEDS ORDERED: methylPREDNISolone SOD SUCCI 125 MG/2 ML VIAL IV STA (18:33)
[2018-03-09] MEDS ORDERED: IPRATROPIUM 0.5 MG/2.5 ML NEBU INHALATION STA (18:33)
[2018-03-09] MEDS ORDERED: ALBUTEROL NEBULIZED 2.5 MG/3 ML INHALATION STA (18:33)
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
[2018-03-09 19:11] LABS: Basophils # (A) 0.1 k/uL (0-0.2); Basophils % (A) 1 %; Eosinophils # (A) 0.6 k/uL (0-0.7); Eosinophils % (A) 6 %; HGB 15.9 gm/dL (13.0-17.5); Lymphocytes # (A) 2.1 k/uL (1.0-4.8); Lymphocytes % (A) 18 %; MCH 30.1 pg (25.0-35.0); MCHC 33.1 g/dL (31.0-37.0); MCV 90.9 fL (80.0-100.0); Mean Platelet Volume 6.5; Monocytes # (A) 0.8 k/uL (0-1.0); Monocytes % (A) 7 %; Neutrophils # (A) 7.7 k/uL (1.3-7.7); Neutrophils % (A) 67 %; Platelet Count 218 k/uL (150-450); RBC 5.28 m/uL (4.30-5.90); RDW 14.1 % (11.5-15.5); WBC 11.5 k/uL (3.8-10.6)
[2018-03-09 19:21] LABS: ALT 40 U/L (21-72); AST 28 U/L (17-59); Albumin 4.8 g/dL (3.5-5.0); Alkaline Phosphatase 78 U/L (38-126); Anion Gap 9 mmol/L; Blood Urea Nitrogen 14 mg/dL (9-20); Calcium 9.6 mg/dL (8.4-10.2); Carbon Dioxide 24 mmol/L (22-30); Chloride 106 mmol/L (98-107); Glucose 106 mg/dL (74-99); INR 0.9 (<1.2); Partial Thromboplastin Time 23.4 sec (22.0-30.0); Potassium 4.6 mmol/L (3.5-5.1); Prothrombin Time 9.5 sec (9.0-12.0); Sodium 139 mmol/L (137-145); Total Bilirubin 0.9 mg/dL (0.2-1.3); Total Protein 7.6 g/dL (6.3-8.2)
[2018-03-09 19:24] LABS: Creatine Kinase 25 U/L (55-170)
[2018-03-09 19:36] LABS: Creatine Kinase MB 0.8 ng/mL (0.0-2.4); Troponin I <0.012 ng/mL (0.000-0.034)
--- NOTE | 2018-03-09 20:14 | XR ---
EXAMINATION TYPE: XR chest 2V DATE OF EXAM: 03/09/2018 COMPARISON: 01/29/2018 HISTORY: Difficulty breathing TECHNIQUE: Frontal and lateral views of the chest are obtained. FINDINGS: Heart is normal. There is no heart failure nor confluent pneumonic infiltrate. There is co arsening of the interstitial markings. Thoracic aorta is atheromatous. There is mild pulmonary hyperi nflation. Bony thorax is intact. IMPRESSION: Mild pulmonary fibrotic changes. No acute lung disease. No significant change compared t o last exam.
[2018-03-09] MEDS ORDERED: IPRATROPIUM-ALBUTEROL 3 ML NEB INHALATION PRN (20:50)
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
[2018-03-10] MEDS: HEPARIN SODIUM,PORCINE 5,000 UNIT/ML 1 ML VIAL SQ SCH ×3 (00:49→15:47)
[2018-03-10] MEDS: methylPREDNISolone SOD SUCCI 125 MG/2 ML VIAL IV SCH ×4 (00:49→17:58)
[2018-03-10] MEDS: SODIUM CHLORIDE 0.9% 1,000 ML IV SCH ×3 (00:57→18:45)
[2018-03-10] MEDS: MELATONIN 3 MG TABLET PO SCH (01:19)
[2018-03-10] MEDS: HYDROcodone/APAP 5-325MG 1 EACH TAB PO PRN ×4 (01:48→21:36)
[2018-03-10 06:46] LABS: Basophils % (A) 0 %; Eosinophils # (A) 0.1 k/uL (0-0.7); Eosinophils % (A) 1 %; HGB 14.8 gm/dL (13.0-17.5); Lymphocytes # (A) 0.7 k/uL (1.0-4.8); Lymphocytes % (A) 7 %; MCH 28.8 pg (25.0-35.0); MCHC 31.4 g/dL (31.0-37.0); MCV 91.6 fL (80.0-100.0); Mean Platelet Volume 6.4; Monocytes # (A) 0.1 k/uL (0-1.0); Monocytes % (A) 1 %; Neutrophils # (A) 9.6 k/uL (1.3-7.7); Neutrophils % (A) 91 %; Platelet Count 211 k/uL (150-450); RBC 5.13 m/uL (4.30-5.90); RDW 14.1 % (11.5-15.5); WBC 10.5 k/uL (3.8-10.6)
[2018-03-10 07:04] LABS: ALT 33 U/L (21-72); AST 21 U/L (17-59); Albumin 4.4 g/dL (3.5-5.0); Alkaline Phosphatase 86 U/L (38-126); Anion Gap 11 mmol/L; Blood Urea Nitrogen 14 mg/dL (9-20); Calcium 9.5 mg/dL (8.4-10.2); Carbon Dioxide 22 mmol/L (22-30); Chloride 105 mmol/L (98-107); Glucose 157 mg/dL (74-99); Magnesium 2.1 mg/dL (1.6-2.3); Sodium 138 mmol/L (137-145); Total Bilirubin 0.9 mg/dL (0.2-1.3); Total Protein 6.9 g/dL (6.3-8.2)
[2018-03-10 07:05] LABS: Potassium 4.6 mmol/L (3.5-5.1)
[2018-03-10] MEDS: SYMBICORT 160-4.5 MCG INHALER INHALATION SCH ×3 (07:11→22:08)
[2018-03-10] MEDS: IPRATROPIUM-ALBUTEROL 3 ML NEB INHALATION PRN ×3 (07:11→22:08)
[2018-03-10 08:08] LABS: Glucose,Whole Blood 156 mg/dL (75-99)
[2018-03-10] MEDS: PANTOPRAZOLE 40 MG TABLET PO SCH (08:14)
[2018-03-10] MEDS: INSULIN ASPART 100 UNIT/ML 1 ML 10 ML VIAL SQ SCH ×4 (08:15→20:48)
[2018-03-10 08:19] LABS: T4, Free (Free Thyroxine) 1.63 ng/dL (0.78-2.19)
--- NOTE | 2018-03-10 11:20 | ECHOF ---
Referral Reason:sinus tachycardia MEASUREMENTS -------- HEIGHT: 162.6 cm WEIGHT: 69.9 kg BP: 148/77 RVIDd: 2.6 cm (< 3.3) IVSd: 1.0 cm (0.6 - 1.1) LVIDd: 4.2 cm (3.9 - 5.3) LVPWd: 1.3 cm (0.6 - 1.1) IVSs: 1.7 cm LVIDs: 1.9 cm LVPWs: 2.0 cm Ao Diam: 3.2 cm (2.0 - 3.7) AV Cusp: 1.5 cm (1.5 - 2.6) LA Diam: 2.0 cm (2.7 - 3.8) MV E Brooks: 0.65 m/s MV DecT: 185 ms MV A Brooks: 0.73 m/s MV E/A Ratio: 0.89 RAP: 15.00 mmHg RVSP: 22.80 mmHg FINDINGS -------- Sinus rhythm. This was a technically good study. The left ventricular size is normal. There is mild concentric left ventricular hypertrophy. Overa ll left ventricular systolic function is normal with, an EF between 55 - 60 %. The right ventricle is normal in size. The left atrium is normal in size. The right atrium is normal in size. The aortic valve is trileaflet and appears structurally normal. The mitral valve is normal. There is trace mitral regurgitation. Trace tricuspid regurgitation present. Right ventricular systolic pressure is normal at < 35 mmHg. The right ventricular systolic pressure, as measured by Doppler, is 22.80mmHg. There is no pulmonic regurgitation present. The aortic root size is normal. The inferior vena cava is mildly dilated. Echo free space indicative of a pericardial fat pad. CONCLUSIONS -------- 1. Sinus rhythm. 2. This was a technically good study. 3. The left ventricular size is normal. 4. There is mild concentric left ventricular hypertrophy. 5. Overall left ventricular systolic function is normal with, an EF between 55 - 60 %. 6. The left atrium is normal in size. 7. The aortic valve is trileaflet and appears structurally normal. 8. The mitral valve is normal. 9. There is trace mitral regurgitation. 10. Trace tricuspid regurgitation present. 11. Right ventricular systolic pressure is normal at < 35 mmHg. 12. There is no pulmonic regurgitation present. 13. The aortic root size is normal. 14. The inferior vena cava is mildly dilated. 15. Echo free space indicative of a pericardial fat pad. SHARE HOLDER: Laurel Marie RDCS
[2018-03-10 12:21] LABS: Glucose,Whole Blood 129 mg/dL (75-99)
--- NOTE | 2018-03-10 13:47 | P.PN ---
Subjective Progress Note Date: 03/10/18 Principal diagnosis: COPD exacerbation, tachycardia Patient seen and examined. No acute events overnight. Patient reports great improvement in his breathing. Still complains of dyspnea with exertion to the bathroom. He denies chest pain or palpitations. Patient shows grave concerns over his daughter, scheduled for surgery. Requesting to move up to 4S in order to be close to his daughter. Objective - Vital Signs Vital signs: Vital Signs Temp 97.8 F 03/10/18 11:20 Pulse 90 03/10/18 11:23 Resp 18 03/10/18 11:20 BP 152/91 03/10/18 11:20 Pulse Ox 94 L 03/10/18 11:20 Intake & Output 03/09/18 03/10/18 03/10/18 18:59 06:59 18:59 Intake Total 220 Balance 220 Weight 68.039 kg 70.3 kg Intake: Oral 220 Other: # Voids 1 - Exam General: [non toxic], [no distress], [appears at stated age] Derm: [warm], [dry] Head: [atraumatic], [normocephalic], [symmetric] Eyes: [EOMI], [no lid lag], [anicteric sclera] Mouth: [no lip lesion], [mucus membranes moist] Cardiovascular: [S1S2 reg], [tachycardia], [positive DP pulse bilateral], Lungs: [Expiratory wheezes bilateral], [no rhonchi, no rales] , [no accessory muscle use] Abdominal: [soft], [ nontender to palpation], [no guarding], [no appreciable organomegaly] Ext: [no gross muscle atrophy], [no edema], [no contractures] Neuro: [no focal neuro deficits] Psych: [Alert], [oriented], [appropriate affect] - Labs CBC & Chem 7: 03/10/18 05:39 03/10/18 05:39 Labs: Abnormal Lab Results - Last 24 Hours (Table) 03/09/18 03/09/18 03/09/18 Range/Units 19:00 19:00 19:00 WBC 11.5 H (3.8-10.6) k/uL Neutrophils # (1.3-7.7) k/uL Lymphocytes # (1.0-4.8) k/uL Creatinine (0.66-1.25) mg/dL Glucose 106 H (74-99) mg/dL POC Glucose (mg/dL) (75-99) mg/dL Total Creatine Kinase 25 L (55-170) U/L TSH (0.465-4.680) mIU/L 03/10/18 03/10/18 03/10/18 Range/Units 05:39 05:39 08:07 WBC (3.8-10.6) k/uL Neutrophils # 9.6 H (1.3-7.7) k/uL Lymphocytes # 0.7 L (1.0-4.8) k/uL Creatinine 0.62 L (0.66-1.25) mg/dL Glucose 157 H (74-99) mg/dL POC Glucose (mg/dL) 156 H (75-99) mg/dL Total Creatine Kinase (55-170) U/L TSH 0.373 L (0.465-4.680) mIU/L 03/10/18 Range/Units 12:20 WBC (3.8-10.6) k/uL Neutrophils # (1.3-7.7) k/uL Lymphocytes # (1.0-4.8) k/uL Creatinine (0.66-1.25) mg/dL Glucose (74-99) mg/dL POC Glucose (mg/dL) 129 H (75-99) mg/dL Total Creatine Kinase (55-170) U/L TSH (0.465-4.680) mIU/L Assessment and Plan Assessment: Assessment and Plan 1. COPD exacerbation 2. Sinus tachycardia 3. R sided pleuritic chest pain 1. Start DuoNeb 4 times a day scheduled and as needed for shortness of breath. Restart Symbicort 2 puff twice a day. Continue Solu-Medrol 60 mg IV every 6 hours. Oxygen per nasal cannula to maintain an oxygen saturation greater than 92%. Follow pulmonology recommendations. 2. Likely secondary to COPD exacerbation. TSH is low but free T4 is within normal limits. Echocardiogram shows EF of 55-60% with mild LVH. Telemetry monitoring. 3. Pleuritic in nature, low concern for acute coronary syndrome. Initial troponin is less than 0.012, EKG showing sinus tachycardia. Chest CT from May 2017 shows a 6 mm right upper lobe nodule, moderate to severe emphysema. Telemetry monitoring. Will trend 1 Trop/EKG to rule out acute coronary syndrome. Patient being treated for COPD exacerbation. Chest pain likely related to pulmonary process, low concern for acute coronary syndrome. Tachycardia improving with COPD treatment. Patient is pending clinical improvement. Patient requesting to be transferred upstairs to be close to his daughter. I do not see any harm in this, as long as there is telemetry monitoring.
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
[2018-03-10] MEDS: IPRATROPIUM-ALBUTEROL 3 ML NEB INHALATION SCH ×2 (15:51→20:07)
[2018-03-10 17:14] LABS: Glucose,Whole Blood 119 mg/dL (75-99)
--- NOTE | 2018-03-10 19:18 | CT ---
EXAMINATION TYPE: CT angio chest DATE OF EXAM: 03/10/2018 6:28 PM COMPARISON: None HISTORY: SOB, cough CT DLP: 310 mGycm Automated exposure control for dose reduction was used. CONTRAST: CTA scan of the thorax is performed with IV Contrast, patient injected with 93cc mL of Isovue 370, pu lmonary embolism protocol. There are 3-D post processed images.. FINDINGS: There is diffuse pulmonary emphysema. There is bullous disease. Heart size is normal. There is no per icardial effusion. There is no pleural effusion. There are no hilar masses. There is no mediastinal a denopathy. There is mild left lower lobe perihilar pulmonary infiltrate. There is some coarse linear density in the lingula left upper lobe. There is no adrenal mass. Upper abdominal soft tissues are un remarkable. There is normal contrast opacification of the pulmonary arteries. I see no filling defect. Thoracic a myrna shows no aneurysm or dissection. The bony thorax is intact. IMPRESSION: NO EVIDENCE OF PULMONARY EMBOLISM. BULLOUS EMPHYSEMA WITH FIBROTIC CHANGES IN THE LEFT LOWER LOBE AND LINGULA LEFT UPPER LOBE.
[2018-03-10 20:34] LABS: Glucose,Whole Blood 135 mg/dL (75-99)
[2018-03-11] MEDS: IPRATROPIUM-ALBUTEROL 3 ML NEB INHALATION SCH ×5 (00:40→19:16)
[2018-03-11] MEDS: MELATONIN 3 MG TABLET PO SCH ×2 (01:30→20:05)
[2018-03-11] MEDS: methylPREDNISolone SOD SUCCI 125 MG/2 ML VIAL IV SCH ×5 (01:30→23:06)
[2018-03-11] MEDS: HEPARIN SODIUM,PORCINE 5,000 UNIT/ML 1 ML VIAL SQ SCH ×3 (01:31→17:13)
[2018-03-11] MEDS: SYMBICORT 160-4.5 MCG INHALER INHALATION SCH ×2 (07:40→19:16)
[2018-03-11] MEDS: INSULIN ASPART 100 UNIT/ML 1 ML 10 ML VIAL SQ SCH ×4 (08:17→23:06)
[2018-03-11] MEDS: PANTOPRAZOLE 40 MG TABLET PO SCH (08:18)
[2018-03-11] MEDS: HYDROcodone/APAP 5-325MG 1 EACH TAB PO PRN ×2 (08:22→20:04)
--- NOTE | 2018-03-11 11:18 | P.PN ---
Subjective Progress Note Date: 03/11/18 Principal diagnosis: COPD exacerbation Patient was seen and examined. No acute events overnight. Patient continues to complain of dyspnea, especially on exertion. He reports no changes in his breathing from yesterday or admission. Continues to complain of right-sided chest pain, aggravated with deep inspiration. He denies nausea or vomiting, fever, abdominal pain, changes in urination or bowel habits. Moved up to 4 S. in order to be closer to his daughter. Objective - Vital Signs Vital signs: Vital Signs Temp 97.8 F 03/11/18 08:00 Pulse 93 03/11/18 08:00 Resp 20 03/11/18 08:00 BP 153/90 03/11/18 08:00 Pulse Ox 96 03/11/18 00:58 Intake & Output 03/10/18 03/11/18 03/11/18 18:59 06:59 18:59 Intake Total 680 Balance 680 Intake: Oral 680 Other: # Voids 2 1 # Bowel Movements 1 - Exam General: [non toxic], [no distress], [appears at stated age] Derm: [warm], [dry] Head: [atraumatic], [normocephalic], [symmetric] Eyes: [EOMI], [no lid lag], [anicteric sclera] Mouth: [no lip lesion], [mucus membranes moist] Cardiovascular: [S1S2 reg], [tachycardia], [positive DP pulse bilateral], Lungs: [Expiratory wheezes bilateral], [no rhonchi, no rales] , [no accessory muscle use] Abdominal: [soft], [ nontender to palpation], [no guarding], [no appreciable organomegaly] Ext: [no gross muscle atrophy], [no edema], [no contractures] Neuro: [no focal neuro deficits] Psych: [Alert], [oriented], [appropriate affect] - Labs CBC & Chem 7: 03/10/18 05:39 03/10/18 05:39 Labs: Abnormal Lab Results - Last 24 Hours (Table) 03/10/18 03/10/18 03/10/18 Range/Units 12:20 17:13 20:10 POC Glucose (mg/dL) 129 H 119 H 135 H (75-99) mg/dL Assessment and Plan Assessment: Assessment and Plan 1. COPD exacerbation 2. Sinus tachycardia 3. R sided pleuritic chest pain 1. Start DuoNeb 4 times a day scheduled and as needed for shortness of breath. Restart Symbicort 2 puff twice a day. Continue Solu-Medrol 60 mg IV every 6 hours. Oxygen per nasal cannula to maintain an oxygen saturation greater than 92%. Follow pulmonology recommendations. 2. Likely secondary to COPD exacerbation. TSH is low but free T4 is within normal limits. Echocardiogram shows EF of 55-60% with mild LVH. Telemetry monitoring. 3. Pleuritic in nature, low concern for acute coronary syndrome. Initial troponin is less than 0.012 x 2, EKG showing sinus tachycardia, ACS ruled out. Chest CT from May 2017 shows a 6 mm right upper lobe nodule, moderate to severe emphysema. CTA of the chest rules out PE. Telemetry monitoring. Patient being treated for COPD exacerbation. Chest pain likely related to pulmonary process, low concern for acute coronary syndrome. Tachycardia improving with COPD treatment. Patient is pending clinical improvement.
[2018-03-11 16:50] LABS: Glucose,Whole Blood 159 mg/dL (75-99)
[2018-03-11] MEDS: SODIUM CHLORIDE 0.9% 1,000 ML IV SCH (17:23)
[2018-03-11 20:18] LABS: Glucose,Whole Blood 162 mg/dL (75-99)
[2018-03-11 21:07] VITALS: RESP 20
[2018-03-12] MEDS: HEPARIN SODIUM,PORCINE 5,000 UNIT/ML 1 ML VIAL SQ SCH ×2 (00:57→08:51)
[2018-03-12] MEDS: HYDROcodone/APAP 5-325MG 1 EACH TAB PO PRN ×2 (05:16→10:57)
[2018-03-12] MEDS: methylPREDNISolone SOD SUCCI 125 MG/2 ML VIAL IV SCH (05:17)
[2018-03-12 07:04] LABS: Glucose,Whole Blood 136 mg/dL (75-99)
[2018-03-12] MEDS: IPRATROPIUM-ALBUTEROL 3 ML NEB INHALATION SCH ×2 (07:51→11:14)
[2018-03-12] MEDS: SYMBICORT 160-4.5 MCG INHALER INHALATION SCH (07:51)
[2018-03-12] MEDS: SODIUM CHLORIDE 0.9% 1,000 ML IV SCH ×2 (08:36→12:48)
[2018-03-12] MEDS: INSULIN ASPART 100 UNIT/ML 1 ML 10 ML VIAL SQ SCH ×2 (08:50→12:47)
[2018-03-12] MEDS: PANTOPRAZOLE 40 MG TABLET PO SCH (08:51)
[2018-03-12] MEDS ORDERED: predniSONE 20 MG TAB PO SCH (09:15)
[2018-03-12 09:23] VITALS: BP 143/98; TEMP 98
--- NOTE | 2018-03-12 10:13 | P.PN ---
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, history of lung nodule, heterozygous alpha-1 antitrypsin deficiency, chronic hypoxic respiratory failure 03/12/2018, patient seen eval examined during the rounds clinically has been doing well cuff congestion shortness was stable still of intermittent wheezing patient insist on going home, in case if patient insisting on home and primary service agree to discharge patient would recommend doxycycline 100 mg by mouth 2 times a day for 7-10 days along with oral prednisone 40 mg daily for another 5 -7 days with follow-up in the office in one week 03/11/2018, patient seen eval examined during the rounds is still have ongoing intermittent cough congestion and wheezing patient insist on leaving hospital advise at length that he she needs to stay another 24-48 hours to improve the respiratory process, computed tomography scan failed to reveal any significant pathology however possible left perihilar infiltrate cannot be excluded with some streaky densities in the left side in the lingula lobe, patient does have extensive bullous emphysema and fibrotic changes into the left upper lobe and the lingula area as well as left lower lobe 52-year-old male well-known to me with prior medical history of nonspecific pulmonary nodule as well as end-stage lung disease second to severe COPD emphysema patient has not been feeling well for the last 3 or 4 days with increased cough congestion shortness of breath breathing has been more difficult with those problem patient came into emergency department was seen eval reexamined and admitted to hospital for acute COPD exacerbation, reviewed Patient was visiting his daughter in the hospital when he noticed severe shortness of breath. He's been having difficulty breathing over the past few days however this been progressive getting worse. He reports chronic cough with slight worsening, nonproductive. He also reports right-sided pleuritic chest pain this getting worse today. Rated the pain as 8 out of 10 in severity and nonradiating gets worse with deep breathing and coughing. Patient otherwise denies any fevers chills or sore throat denies any runny nose. Patient has been spending some time in the hospital following up on his sick daughter was scheduled for laparoscopic surgery tomorrow Patient does not use home oxygen. Patient reports being compliant with his inhalers and denies any smoking. He denies any history of intubation. Patient was also found to be tachycardic EKG shows sinus tachycardia, he denies any dizziness or lightheadedness but he can feel palpitations. Denies any fevers chills, nausea vomiting, abdominal pain, changes in his bowel or urinary habits, denies any GI bleeding, patient however has been noncompliant with follow-up will get a computed tomography scan with PE protocol over here Objective - Vital Signs Vital signs: Vital Signs Temp 98.0 F 03/12/18 07:05 Pulse 80 03/12/18 08:03 Resp 20 03/12/18 07:05 BP 143/98 03/12/18 07:05 Pulse Ox 93 L 03/12/18 07:05 Intake & Output 03/11/18 03/12/18 03/12/18 18:59 06:59 18:59 Intake Total 500 Balance 500 Intake: Oral 500 Other: # Voids 2 - Exam - General Exam Comments Initial Comments: GENERAL: Patient is well-developed and well-nourished. Patient is nontoxic and well- hydrated and is in moderate distress. ENT: Neck is soft and supple. No significant lymphadenopathy is noted. Oropharynx is clear. Moist mucous membranes. Neck has full range of motion without eliciting any pain. EYES: The sclera were anicteric and conjunctiva were pink and moist. Extraocular movements were intact and pupils were equal round and reactive to light. Eyelids were unremarkable. PULMONARY: Patient is moving very little air and has expiratory wheezing. CARDIOVASCULAR: Patient is tachycardic at about 130 bpm ABDOMINAL: Soft and nontender with normal bowel sounds. SKIN: Skin is clear with no lesions or rashes and otherwise unremarkable. NEUROLOGIC: Patient is alert and oriented x3. Cranial nerves II through XII are grossly intact. Motor and sensory are also intact. Normal speech, volume and content. Symmetrical smile. MUSCULOSKELETAL: Normal extremities with adequate strength and full range of motion. No lower extremity swelling or edema. No calf tenderness. LYMPHATICS: No significant lymphadenopathy is noted PSYCHIATRIC: Normal psychiatric evaluation. - Labs CBC & Chem 7: 03/10/18 05:39 03/10/18 05:39 Labs: Abnormal Lab Results - Last 24 Hours (Table) 03/11/18 03/11/18 03/12/18 Range/Units 16:44 19:58 07:00 POC Glucose (mg/dL) 159 H 162 H 136 H (75-99) mg/dL Assessment and Plan Assessment: Left-sided pneumonia Acute COPD exacerbation History of lung nodule Heterozygous alpha-1 antitrypsin deficiency Baseline severe COPD emphysema Chronic hypoxic respiratory failure Plan: Agree with bronchodilator IV steroids Oral antibiotics Broad-spectrum oral antibiotics as infiltrate may be simply scarring will do doxycycline 100 mg by mouth 2 times a day Deep breathing sense incentive spirometry Gentle rehydration We'll do a computed tomography scan of his chest on PE protocol Time with Patient: Greater than 30
[2018-03-12] MEDS ORDERED: DOXYCYCLINE 100 MG CAP PO SCH (10:15)
[2018-03-12 11:26] VITALS: PULSE 80
--- NOTE | 2018-03-12 12:37 | P.DS ---
Providers Date of admission: 03/09/18 20:50 Expected date of discharge: 03/12/18 Attending physician: Mercy Bain MD Consults: 03/09/18 20:50 Consult Physician Routine Consulting Provider: Byrson David Consult Reason/Comments: COPD exacerbation Do you want consulting provider notified?: Yes Primary care physician: David Cotto - Discharge Diagnosis(es) (1) Right-sided chest pain Current Visit: Yes Status: Acute (2) Acute exacerbation of chronic obstructive airways disease Current Visit: Yes Status: Acute (3) Tachycardia Current Visit: No Status: Acute Hospital Course: 52-year-old male known to have alpha-1 antitrypsin deficiency and COPD Patient was visiting his daughter in the hospital when he noticed severe shortness of breath. He's been having difficulty breathing over the past few days however this been progressive getting worse. He reports chronic cough with slight worsening, nonproductive. He also reports right-sided pleuritic chest pain this getting worse today. Rated the pain as 8 out of 10 in severity and nonradiating gets worse with deep breathing and coughing. Patient also reports history of lung nodule he follows up with pulmonary as now patient gets serial CAT scans. With regard to COPD exacerbation, patient was started on DuoNeb treatments 4 times a day scheduled and as needed for shortness of breath or wheezing. He was restarted on Symbicort 2 puffs twice a day. His initially on Solu-Medrol IV which was later transitioned to prednisone on discharge. He was given oxygen per nasal cannula to maintain oxygen saturation greater than 92%. Bone oncology was consulted and recommended continuation of treatment. He was cleared for discharge on 03/12/2018. Patient was also noted to be tachycardic throughout his admission. His deck cardio resolved at the time of discharge. This is thought to be secondary to COPD exacerbation. TSH was done and was low but free T4 was within normal limits. Echocardiogram was done which showed an ejection fraction of 55-60% with mild LVH. Patient also complained of right pleuritic chest pain and the plan was to rule out acute coronary syndrome. Initial troponin was less than 0.0122 with EKG showing sinus tachycardia. A acute cardiac syndrome was ruled out. Chest CT from May 2017 showed a 6 mm right upper lobe nodule and moderate to severe emphysema CT of the chest was performed and ruled out pulmonary embolus. Patient was seen and examined prior to discharge events overnight. Patient reports great improvement in his breathing. Patient requesting to go home. States that he was cleared by his service agent Dr. David. he denies any chest pain, shortness of breath or palpitations. General: [non toxic], [no distress], [appears at stated age] Derm: [warm], [dry] Head: [atraumatic], [normocephalic], [symmetric] Eyes: [EOMI], [no lid lag], [anicteric sclera] Mouth: [no lip lesion], [mucus membranes moist] Cardiovascular: [S1S2 reg], [no murmurs], [positive DP pulse bilateral], Lungs: [Decreased breath sounds bilateral], [no rhonchi, no rales] , [no accessory muscle use] Abdominal: [soft], [ nontender to palpation], [no guarding], [no appreciable organomegaly] Ext: [no gross muscle atrophy], [no edema], [no contractures] Neuro: [no focal neuro deficits] Psych: [Alert], [oriented], [appropriate affect] Assessment and Plan 1. COPD exacerbation 2. Sinus tachycardia 3. R sided pleuritic chest pain 1. Start DuoNeb 4 times a day scheduled and as needed for shortness of breath. Restart Symbicort 2 puff twice a day. Continue Solu-Medrol 60 mg IV every 6 hours. Oxygen per nasal cannula to maintain an oxygen saturation greater than 92%. Follow pulmonology recommendations. 2. Likely secondary to COPD exacerbation. TSH is low but free T4 is within normal limits. Echocardiogram shows EF of 55-60% with mild LVH. Telemetry monitoring. 3. Pleuritic in nature, low concern for acute coronary syndrome. Initial troponin is less than 0.012 x 2, EKG showing sinus tachycardia, ACS ruled out. Chest CT from May 2017 shows a 6 mm right upper lobe nodule, moderate to severe emphysema. CTA of the chest rules out PE. Telemetry monitoring. Patient being treated for COPD exacerbation. He is at baseline today speaking in full sentences. Will discharge him, states that his home medications at home. He is requesting Otis. Advised to follow-up with his PCP within 1-2 days. Patient advised follow-up with service agent Dr. David within 1 week of discharge. Patient was advised to take all medications as instructed. Pertinent Studies: Chest x-ray Chest CTA Echocardiogram Patient Condition at Discharge: Stable Plan - Discharge Summary Discharge Rx Participant: Yes New Discharge Prescriptions: New Budesonide-Formot 160-4.5 Mcg [Symbicort 160-4.5 Mcg Inhaler] 2 puff INHALATION RT-BID #1 inh Doxycycline [Vibramycin] 100 mg PO BID #13 cap HYDROcodone/APAP 5-325MG [Otis 5-325] 1 each PO Q6HR PRN #12 tab PRN Reason: Pain predniSONE 40 mg PO DAILY #2 tab predniSONE 10 mg PO DAILY #30 tab Continue Thiamine [Vitamin B-1] 100 mg PO DAILY #30 tab Albuterol Inhaler [Ventolin Hfa Inhaler] 1 - 2 puff INHALATION RT-Q4H PRN #1 inh PRN Reason: Shortness Of Breath Ipratropium-Albuterol Nebulize [Duoneb 0.5 mg-3 mg/3 ml Soln] 3 ml INHALATION RT-QID 30 Days #120 ampul.neb Ipratropium/Albuterol Sulfate [Combivent Respimat Inhaler] 1 puff INHALATION RT-BID PRN #1 inh PRN Reason: Shortness Of Breath Pantoprazole [Protonix] 40 mg PO AC-BRKFST #30 tablet.dr Discontinued Omeprazole 20 mg PO DAILY Discharge Medication List Thiamine [Vitamin B-1] 100 mg PO DAILY #30 tab 01/31/18 [Rx] Albuterol Inhaler [Ventolin Hfa Inhaler] 1 - 2 puff INHALATION RT-Q4H PRN #1 inh 03/12/18 [Rx] Budesonide-Formot 160-4.5 Mcg [Symbicort 160-4.5 Mcg Inhaler] 2 puff INHALATION RT-BID #1 inh 03/12/18 [Rx] Doxycycline [Vibramycin] 100 mg PO BID #13 cap 03/12/18 [Rx] HYDROcodone/APAP 5-325MG [Otis 5-325] 1 each PO Q6HR PRN #12 tab 03/12/18 [Rx] Ipratropium-Albuterol Nebulize [Duoneb 0.5 mg-3 mg/3 ml Soln] 3 ml INHALATION RT -QID 30 Days #120 ampul.neb 03/12/18 [Rx] Ipratropium/Albuterol Sulfate [Combivent Respimat Inhaler] 1 puff INHALATION RT- BID PRN #1 inh 03/12/18 [Rx] Pantoprazole [Protonix] 40 mg PO AC-BRKFST #30 tablet. 03/12/18 [Rx] predniSONE 10 mg PO DAILY #30 tab 03/12/18 [Rx] predniSONE 40 mg PO DAILY #2 tab 03/12/18 [Rx] Follow up Appointment(s)/Referral(s): Bryson David MD [STAFF PHYSICIAN] - 1 Week (CALL OFFICE ON TUESDAY TO SCHEDULE APPOINTMENT, OFFICE CLOSED AT TIME OF DISCHARGE.) David Cotto MD [Primary Care Provider] - 1-2 days Patient Instructions/Handouts: COPD (Chronic Obstructive Pulmonary Disease) (DC ) Activity/Diet/Wound Care/Special Instructions: Diet: HEART healthy Please follow-up with your primary care provider within 1-2 days of discharge. Please follow-up with your service agent within 1 week of discharge. Please take all medications as advised. Discharge Disposition: HOME SELF-CARE
--- NOTE | 2018-03-14 18:05 | CDI ---
Documentation Clarification Form Date: 03/14/18 From: Isabel Himanshu Zarina Bowles, Marine Steward Hours-8:30 am & 5 pm M-Traci Admit Date: 03/09/2018 8:50:00 PM Patient Name: Duarte Trujillo Visit Number: [id number] Discharge Date: 03/12/2018 2:36:00 PM ATTENTION: The Clinical Documentation Specialists (CDI) and [facility] Coding Staff appreciate your assistance in clarifying documentation. Please respond to the clarification below the line at the bottom and electronically sign. The CDI & [facility] Coding staff will review the response and follow-up if needed. Please note: Queries are made part of the Legal Health Record. If you have any questions, please contact the author of this message via ITS. Dr. Angela Puente Conflicting documentation has been found in the medical record: Per Dr Massey's PNs (03/11 & 03/12) states patient has left sided pneumonia. Per your DS, state patient has exacerbation of COPD/emphysema. Clinical Indicators: CXR- no acute lung disease. Chest CT: Bullous emphysema with fibrotic changes in the left lower lobe and lingula left upper lobe. Treatment: IV Solu-Medrol, Vibramycin added on 03/12 In your opinion, what is the most clinically appropriate diagnosis for this patient? Pneumonia ruled in Pneumonia ruled out Other explanation of clinical findings Unable to determine (no explanation for clinical findings) Pneumonia ruled in. Documented in my discharge summary. MTDD
== END 2018-03-12 14:36 | disposition home or self-care (01) | DRG 190 ==
LOC: EC 18:19 → 3SCARD 20:50 → 4SSUR 03-10 19:55
PROVIDERS: ADMIT Internal Medicine; ATTEND Internal Medicine
DX: J43.9 Emphysema, unspecified (principal); J18.9 Pneumonia, unspecified organism; J96.11 Chronic respiratory failure with hypoxia; E88.01 Alpha-1-antitrypsin deficiency; E78.5 Hyperlipidemia, unspecified; I10 Essential (primary) hypertension; R00.0 Tachycardia, unspecified; R91.1 Solitary pulmonary nodule; Z91.19 Patient's noncompliance with other medical treatment and regimen; Z79.899 Other long term (current) drug therapy; Z87.11 Personal history of peptic ulcer disease; Z87.820 Personal history of traumatic brain injury; Z87.891 Personal history of nicotine dependence; Z87.19 Personal history of other diseases of the digestive system; Z81.8 Family history of other mental and behavioral disorders
CPT/HCPCS: 36415; 71046; 71275; 80053; 82550; 82553; 83735; 84439; 84443; 84484; 85025; 85379; 85610; 85730; 93005; 93306; 94640; 94644; 94760; 96374; 99291

== ENCOUNTER 2018-04-10 13:31 | Observation (INO) | payer OTHER ==
[2018-04-10] MEDS ORDERED: ALBUTEROL NEBULIZED 2.5 MG/3 ML INHALATION STA ×2 (13:42→13:53)
[2018-04-10] MEDS ORDERED: IPRATROPIUM 0.5 MG/2.5 ML NEBU INHALATION STA ×2 (13:43→13:53)
[2018-04-10] MEDS ORDERED: methylPREDNISolone SOD SUCCI 125 MG/2 ML VIAL IV STA (13:53)
[2018-04-10 14:30] LABS: ALT 46 U/L (21-72); AST 30 U/L (17-59); Albumin 4.6 g/dL (3.5-5.0); Alkaline Phosphatase 94 U/L (38-126); Anion Gap 13 mmol/L; Blood Urea Nitrogen 9 mg/dL (9-20); Calcium 9.3 mg/dL (8.4-10.2); Carbon Dioxide 22 mmol/L (22-30); Chloride 103 mmol/L (98-107); Glucose 112 mg/dL (74-99); Magnesium 1.9 mg/dL (1.6-2.3); Potassium 4.2 mmol/L (3.5-5.1); Sodium 138 mmol/L (137-145); Total Bilirubin 0.5 mg/dL (0.2-1.3); Total Protein 7.1 g/dL (6.3-8.2)
[2018-04-10 14:33] LABS: INR 0.9 (<1.2); Partial Thromboplastin Time 22.3 sec (22.0-30.0); Prothrombin Time 9.8 sec (9.0-12.0)
[2018-04-10 14:50] LABS: Basophils # (A) 0.1 k/uL (0-0.2); Basophils % (A) 1 %; Eosinophils # (A) 0.5 k/uL (0-0.7); Eosinophils % (A) 5 %; HCT 47.5 % (39.0-53.0); HGB 15.8 gm/dL (13.0-17.5); Lymphocytes # (A) 1.8 k/uL (1.0-4.8); Lymphocytes % (A) 18 %; MCH 30.7 pg (25.0-35.0); MCHC 33.3 g/dL (31.0-37.0); MCV 92.2 fL (80.0-100.0); Mean Platelet Volume 6.6; Monocytes # (A) 0.7 k/uL (0-1.0); Monocytes % (A) 7 %; Neutrophils # (A) 6.9 k/uL (1.3-7.7); Neutrophils % (A) 68 %; Platelet Count 197 k/uL (150-450); RBC 5.15 m/uL (4.30-5.90); RDW 13.8 % (11.5-15.5); WBC 10.2 k/uL (3.8-10.6)
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
[2018-04-10 14:53] LABS: Creatine Kinase MB 1.3 ng/mL (0.0-2.4); Troponin I 0.02 ng/mL (0.000-0.034)
[2018-04-10] MEDS ORDERED: LABETALOL 5 MG/ML VIAL MDV IVP STA (15:19)
[2018-04-10] MEDS ORDERED: hydrALAZINE HCL 20 MG/ML 1 ML VIAL IVP STA (15:24)
--- NOTE | 2018-04-10 16:35 | XR ---
EXAMINATION TYPE: XR chest 2V DATE OF EXAM: 04/10/2018 COMPARISON: 03/09/2018 INDICATION: Difficulty breathing TECHNIQUE: Frontal and lateral views of the chest are obtained. FINDINGS: The heart size is normal. The pulmonary vasculature is normal. There may be a mild infiltrate at the lingula.. IMPRESSION: 1. Small lingular infiltrate may be present. Clinical correlation recommended.
[2018-04-10] MEDS ORDERED: ACETAMINOPHEN TAB 500 MG TAB PO PRN (18:29)
[2018-04-10] MEDS ORDERED: ALPRAZolam 0.25 MG TAB PO PRN (18:29)
[2018-04-10] MEDS ORDERED: LORazepam 0.5 MG TAB PO PRN (18:29)
[2018-04-10] MEDS: FORMOTEROL FUMARATE 20 MCG/2 ML NEBU INHALATION SCH (19:37)
[2018-04-10] MEDS: BUDESONIDE 1 MG/2 ML NEBU INHALATION SCH (19:37)
[2018-04-10 19:38] VITALS: BMI 28.3
[2018-04-10] MEDS: IPRATROPIUM-ALBUTEROL 3 ML NEB INHALATION SCH (19:38)
[2018-04-10] MEDS: methylPREDNISolone SOD SUCCI 125 MG/2 ML VIAL IV SCH (19:55)
[2018-04-10] MEDS: AZITHROMYCIN 500 MG in SODIUM CHLORIDE 0.9% 250 ML IVPB SCH (19:55)
[2018-04-10 20:39] LABS: Glucose,Whole Blood 174 mg/dL (75-99)
[2018-04-10] MEDS: INSULIN ASPART (NovoLOG) 100 UNIT/ML VIAL SQ SCH (21:12)
[2018-04-10] MEDS: HEPARIN SODIUM,PORCINE 5,000 UNIT/ML 1 ML VIAL SQ SCH (21:12)
[2018-04-10] MEDS: TEMAZEPAM 15 MG CAP PO PRN (21:14)
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
[2018-04-11] MEDS: methylPREDNISolone SOD SUCCI 125 MG/2 ML VIAL IV SCH ×5 (00:16→22:49)
[2018-04-11] MEDS: IPRATROPIUM-ALBUTEROL 3 ML NEB INHALATION PRN (04:40)
[2018-04-11 06:46] LABS: Glucose,Whole Blood 168 mg/dL (75-99)
[2018-04-11] MEDS: BUDESONIDE 1 MG/2 ML NEBU INHALATION SCH ×2 (08:18→20:27)
[2018-04-11] MEDS: IPRATROPIUM-ALBUTEROL 3 ML NEB INHALATION SCH ×4 (08:18→20:28)
[2018-04-11] MEDS: FORMOTEROL FUMARATE 20 MCG/2 ML NEBU INHALATION SCH ×2 (08:18→20:27)
[2018-04-11] MEDS: INSULIN ASPART (NovoLOG) 100 UNIT/ML VIAL SQ SCH ×4 (08:44→20:35)
[2018-04-11] MEDS: PANTOPRAZOLE 40 MG TABLET PO SCH (08:45)
[2018-04-11] MEDS: HEPARIN SODIUM,PORCINE 5,000 UNIT/ML 1 ML VIAL SQ SCH ×2 (08:45→20:35)
[2018-04-11] MEDS: THIAMINE 100 MG TAB PO SCH (08:45)
[2018-04-11 08:57] LABS: Basophils % (A) 0 %; Eosinophils # (A) 0.1 k/uL (0-0.7); Eosinophils % (A) 1 %; HCT 45.8 % (39.0-53.0); HGB 14.7 gm/dL (13.0-17.5); Lymphocytes # (A) 0.6 k/uL (1.0-4.8); Lymphocytes % (A) 6 %; MCH 29.6 pg (25.0-35.0); MCHC 32.1 g/dL (31.0-37.0); MCV 92.1 fL (80.0-100.0); Monocytes # (A) 0.2 k/uL (0-1.0); Monocytes % (A) 2 %; Neutrophils # (A) 9.3 k/uL (1.3-7.7); Neutrophils % (A) 92 %; Platelet Count 215 k/uL (150-450); RBC 4.98 m/uL (4.30-5.90); RDW 13.8 % (11.5-15.5); WBC 10.1 k/uL (3.8-10.6)
[2018-04-11 09:09] LABS: Anion Gap 8 mmol/L; Blood Urea Nitrogen 11 mg/dL (9-20); Calcium 9.6 mg/dL (8.4-10.2); Carbon Dioxide 27 mmol/L (22-30); Chloride 103 mmol/L (98-107); Glucose 174 mg/dL (74-99); Potassium 4.6 mmol/L (3.5-5.1); Sodium 138 mmol/L (137-145)
[2018-04-11 11:19] LABS: Glucose,Whole Blood 111 mg/dL (75-99)
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
--- NOTE | 2018-04-11 14:55 | CT ---
EXAMINATION TYPE: CT chest wo con DATE OF EXAM: 04/11/2018 COMPARISON: 03/10/2018 and 05/26/2017 HISTORY: 52-year-old male difficulty breathing. TECHNIQUE: Contiguous axial scanning of the chest without IV contrast. Coronal and sagittal reconstru ctions performed. CT DLP: 327.9 mGycm Automated exposure control for dose reduction was used. FINDINGS: Heart normal size without pericardial effusion. On the current exam, aortic root is ectatic at 3.7 cm. Remainder of the aorta is normal caliber. Ther e is very direct takeoff of the left vertebral artery directly from the aortic arch. No thoracic lymphadenopathy. Moderate to advanced centrilobular and paraseptal emphysema is demonstra emanuel. Multiple calcified granulomas are demonstrated. 6 mm right upper lobe pulmonary nodule, axial image 15 is unchanged. 1.3 cm nodule on the inferior aspect of the left major fissure, axial image 46 is unchanged. Plaque-like thickening along the left infrahilar major fissure measures at least 1.2 cm thick with so me associated calcifications, largely unchanged from 05/26/2017. However, some thickening at the left hilar/suprahilar level also along the major fissure is new from 05/26/2017 and increased from 03/10/2018 90 measuring 2.2 x 1.2 cm. Refer to axial image 34. No consolidation or pleural effusion. Visualized upper abdomen shows no gross abnormality. Prominent ingested debris distending the stomach . Bones: Cervical spondylosis. Zedp-vs-[id number] multilevel degenerative disc disease. IMPRESSION: 1. COPD WITH MODERATE EMPHYSEMA. PRIOR GRANULOMATOUS DISEASE 2. SCATTERED PULMONARY NODULES MEASURING UP TO 1.2 CM REMAIN UNCHANGED FROM 05/26/2017 SUGGESTING A SHAWNA IGN ETIOLOGY. THE IRREGULAR THICKENING ALONG THE INFRAHILAR LEFT MAJOR FISSURE IS ALSO LARGELY UNCHAN GED 3. HOWEVER, THERE IS NEW IRREGULAR THICKENING ALONG THE MAJOR FISSURE AT THE HILAR/SUPRAHILAR LEVEL. EVEN COMPARED TO 03/10/2018, THIS HAS INCREASED. THIS MAY REPRESENT PROGRESSIVE SCARRING. CLOSE FOLLOW -UP RECOMMENDED TO EXCLUDE DEVELOPING NEOPLASM HERE.
[2018-04-11] MEDS: AZITHROMYCIN 500 MG in SODIUM CHLORIDE 0.9% 250 ML IVPB SCH (16:02)
[2018-04-11 17:37] LABS: Glucose,Whole Blood 180 mg/dL (75-99)
[2018-04-11 18:09] LABS: Hemoglobin A1C 5.5 % (4.0-6.0)
[2018-04-11 19:53] LABS: Appearance,Urine Clear (Clear); Bilirubin,Urine Negative (Negative); Blood,Urine Negative (Negative); Color,Urine Colorless; Glucose,Urine (UA) 3+ (Negative); Ketones,Urine Negative (Negative); Leukocyte Esterase,Urine Negative (Negative); Nitrite,Urine Negative (Negative); PH, Urine 5.5 (5.0-8.0); Protein,Urine Negative (Negative); Urobilinogen,Urine <2.0 mg/dL (<2.0)
[2018-04-11 20:07] LABS: Glucose,Whole Blood 196 mg/dL (75-99)
--- NOTE | 2018-04-11 20:10 | PN ---
PROGRESS NOTE DATE OF SERVICE: 04/11/2018 This 52-year-old gentleman who was admitted with COPD acute exacerbation, severe acute purulent tracheobronchitis and possible left lingula infiltrate is being closely monitored. The patient had a CT scan of the chest today. The patient is severely symptomatic, unable to complete a sentence. CT scan of the chest showed COPD with moderate emphysema and as well as scattered pulmonary nodules measuring up to 1.2 cm and irregular thickening along with infrahilar major fissure and irregular thickening along with major fissure at the hilar level was also noted, which is probably increased and probably recommend progressive scarring and recommended repeat CAT scan. No chest pain. No palpitations. No fever. PAST MEDICAL HISTORY: Reviewed. REVIEW OF SYSTEMS: CARDIOVASCULAR: No angina or palpitations. RESPIRATORY: As mentioned earlier. GI no nausea or vomiting. : No dysuria. Central nervous system: No numbness, weakness. CURRENT MEDICATIONS: Current medications noted and include: 1. Tylenol 500 q.8h p.r.n. 2. [place] 5 mg q6h p.r.n. 3. DuoNeb q.i.d. 4. Xanax 0.25 mg. 5. Zithromax 500 mg. 6. Pulmicort 1 mg b.i.d. 7. Rocephin 1 g. 8. Perforomist. 9. Heparin 5000 subcu b.i.d. 10.NovoLog. 11.Ativan 0.5 mg q.h.s. 12.Solu-Medrol 60 IV q.6h. 13.Singular 10 mg. 14.Protonix 40 mg daily. 15.Zestril 50 mg. 16.Vitamin B1 100 mg p.o. daily. PHYSICAL EXAM: Patient is alert, oriented x3. Pulse is 103. Blood pressure is 140/79, respiration 20, temperature 98 degrees, pulse ox 97% on 2 L. HEENT is conjunctivae normal. Neck is no jugular venous distention. Cardiovascular: S1, S2 muffled. Respiratory: Breath sounds diminished in the bases. Bilateral scattered rhonchi and crackles. Expiratory wheezing. ABDOMEN: Soft, nontender. Legs are no edema. No swelling. Central nervous system: No focal deficits. LABORATORY DATA: CBC within normal limits. Sodium 138, potassium 4.6. ASSESSMENT: 1. Chronic obstructive pulmonary disease acute exacerbation with acute possible left lower lobe lingular pneumonia possibly gram-negative, possibly community acquired. 2. Tachycardia. 3. History of gastrointestinal bleed. 4. Hypertension. 5. Hyperlipidemia. 6. History of dementia. 7. History of chronic obstructive pulmonary disease stage IV. 8. History of gastric ulcer. 9. History of leg spasms. 10.Head injury with brain bleed about eight years ago. 11.Alpha 1 antitrypsin insufficiency. 12. Bilateral inguinal hernia repair. 1. History of nicotine dependence. 2. History of THC. RECOMMENDATIONS AND DISCUSSION: Continue current medications and continue with monitoring and symptomatic treatment. Otherwise, at this time, continue the bronchodilators, steroids. Continue with monitoring. Guarded prognosis because of multiple complex medical issues. Further recommendations to follow. MMODL / IJN: [id number] /
[2018-04-11] MEDS: MONTELUKAST 10 MG TAB PO SCH (20:35)
[2018-04-11] MEDS: HYDROcodone/APAP 5-325MG 1 EACH TAB PO PRN (22:49)
[2018-04-11] MEDS: TEMAZEPAM 15 MG CAP PO PRN (22:49)
[2018-04-12] MEDS: IPRATROPIUM-ALBUTEROL 3 ML NEB INHALATION PRN ×2 (01:02→03:51)
[2018-04-12] MEDS: methylPREDNISolone SOD SUCCI 125 MG/2 ML VIAL IV SCH ×3 (05:13→17:35)
[2018-04-12 07:08] LABS: Glucose,Whole Blood 124 mg/dL (75-99)
[2018-04-12] MEDS: INSULIN ASPART (NovoLOG) 100 UNIT/ML VIAL SQ SCH ×4 (07:12→20:42)
[2018-04-12 07:53] LABS: Basophils % (A) 0 %; Eosinophils # (A) 0.1 k/uL (0-0.7); Eosinophils % (A) 1 %; HCT 44.4 % (39.0-53.0); HGB 14.1 gm/dL (13.0-17.5); Lymphocytes # (A) 0.6 k/uL (1.0-4.8); Lymphocytes % (A) 3 %; MCHC 31.8 g/dL (31.0-37.0); MCV 94.3 fL (80.0-100.0); Mean Platelet Volume 6.2; Monocytes # (A) 0.9 k/uL (0-1.0); Monocytes % (A) 5 %; Neutrophils # (A) 15.3 k/uL (1.3-7.7); Neutrophils % (A) 90 %; Platelet Count 213 k/uL (150-450); RDW 13.8 % (11.5-15.5)
[2018-04-12] MEDS: BUDESONIDE 1 MG/2 ML NEBU INHALATION SCH ×2 (07:57→20:04)
[2018-04-12] MEDS: FORMOTEROL FUMARATE 20 MCG/2 ML NEBU INHALATION SCH ×2 (07:57→20:04)
[2018-04-12] MEDS: IPRATROPIUM-ALBUTEROL 3 ML NEB INHALATION SCH ×4 (07:57→20:04)
[2018-04-12 08:04] LABS: Anion Gap 8 mmol/L; Blood Urea Nitrogen 18 mg/dL (9-20); Calcium 9.2 mg/dL (8.4-10.2); Carbon Dioxide 28 mmol/L (22-30); Chloride 101 mmol/L (98-107); Glucose 131 mg/dL (74-99); Potassium 4.4 mmol/L (3.5-5.1); Sodium 137 mmol/L (137-145)
[2018-04-12] MEDS: PANTOPRAZOLE 40 MG TABLET PO SCH (08:29)
[2018-04-12] MEDS: THIAMINE 100 MG TAB PO SCH (08:29)
[2018-04-12] MEDS: HEPARIN SODIUM,PORCINE 5,000 UNIT/ML 1 ML VIAL SQ SCH ×2 (08:29→20:42)
[2018-04-12] MEDS: HYDROcodone/APAP 5-325MG 1 EACH TAB PO PRN (08:30)
[2018-04-12 11:20] LABS: Glucose,Whole Blood 119 mg/dL (75-99)
[2018-04-12 12:03] LABS: Alpha 1 Antitrypsin 82.4 mg/dL (99.0-242.0)
[2018-04-12 13:34] LABS: Alt. alternata IgE Class CLASS 0; Alternaria alternata IgE <0.35 kU/L (<0.35); Asperg. fumagatus IgE <0.35 kU/L (<0.35); Asperg. fumagatus IgE Class CLASS 0; Bermuda Grass IgE <0.35 kU/L (<0.35); Birch(Com.Silvr) IgE <0.35 kU/L (<0.35); Birch(Com.Silvr) IgE Class CLASS 0; Cat Epith & Dander IgE <0.35 kU/L (<0.35); Cat Epith & Dander IgE Class CLASS 0; Clad herbarum IgE <0.35 kU/L (<0.35); Cockroach IgE <0.35 kU/L (<0.35); Cottonwood IgE <0.35 kU/L (<0.35); Dermato. Pteronyssinus IgE 2.16 kU/L (<0.35); Dermato. farinae IgE 2.17 kU/L (<0.35); Dermato. farinae IgE Class CLASS II; Dog Dander IgE <0.35 kU/L (<0.35); Elm IgE <0.35 kU/L (<0.35); Maple (Box Elder) IgE <0.35 kU/L (<0.35); Maple (Box Elder) IgE Class CLASS 0; Mountain Cedar IgE <0.35 kU/L (<0.35); Mountain Cedar IgE Class CLASS 0; Mouse Urine IgE Class CLASS 0; Nettle IgE <0.35 kU/L (<0.35); Nettle IgE Class CLASS 0; Oak IgE <0.35 kU/L (<0.35); Penicillium notatum IgE Class CLASS 0; Rough Marshelder IgE <0.35 kU/L (<0.35); Rough Marshelder IgE Class CLASS 0; Timothy Grass IgE <0.35 kU/L (<0.35); White Ash IgE Class CLASS 0
[2018-04-12 17:19] LABS: Glucose,Whole Blood 154 mg/dL (75-99)
[2018-04-12] MEDS: AZITHROMYCIN 500 MG in SODIUM CHLORIDE 0.9% 250 ML IVPB SCH (17:32)
--- NOTE | 2018-04-12 18:06 | P.PN ---
Subjective Progress Note Date: 04/12/18 Patient seen and examined in consultation for COPD. The patient states he has been short of breath for over a week. He states he knew he was coming down with something. He denies fevers and chills. The patient states that he has been using his inhaler more than he should be any is been running out. He has been using his daughter's inhaler. He states he does cough but never produces phlegm. he states he does not wear oxygen at home. He does continue to smoke and has a known history of alpha-1 antitrypsin deficiency. Chest x-ray the patient was found to have a small lingular infiltrate. The patient states that he would like to use oxygen at home but has never been able to qualify in the past. 04/12/2018: Patient seen and examined. Patient states his breathing is ok. He states he feels emotional today because he is worried about his liver and is wondering if he is in liver failure. He states his abdominal and chest pain are improving. He is on room air. Objective - Vital Signs Vital signs: Vital Signs Temp 97.7 F 04/12/18 12:50 Pulse 99 04/12/18 16:31 Resp 18 04/12/18 16:31 BP 158/93 04/12/18 15:27 Pulse Ox 99 04/12/18 12:50 Intake & Output 04/11/18 04/12/18 04/12/18 18:59 06:59 18:59 Intake Total 480 Balance 480 Intake: Oral 480 Other: Voiding Method Toilet Toilet # Voids 2 3 4 - Exam General: Alert and oriented x 3, NAD, tearful CV: RRR, s1/s2 Lungs: bilateral expiratory wheezing Abd: Soft, NT/ND, +BS Ext: no edema - Labs CBC & Chem 7: 04/12/18 07:24 04/12/18 07:24 Labs: Abnormal Lab Results - Last 24 Hours (Table) 04/11/18 04/11/18 04/11/18 Range/Units 08:15 08:15 19:38 WBC (3.8-10.6) k/uL Neutrophils # (1.3-7.7) k/uL Lymphocytes # (1.0-4.8) k/uL Glucose (74-99) mg/dL POC Glucose (mg/dL) (75-99) mg/dL Xxobs-8-Nltlfybebzf 82.4 L (99.0-242.0) mg/dL D. farinae Allrgen IgE 2.17 H (<0.35) kU/L D. pteronyssinus IgE 2.16 H (<0.35) kU/L Ur Specific [place] 1.000 L (1.001-1.035) Urine Glucose (UA) 3+ H (Negative) IgE 114.0 H (<114.0) IU/mL 04/11/18 04/12/18 04/12/18 Range/Units 20:06 07:06 07:24 WBC 17.0 H (3.8-10.6) k/uL Neutrophils # 15.3 H (1.3-7.7) k/uL Lymphocytes # 0.6 L (1.0-4.8) k/uL Glucose (74-99) mg/dL POC Glucose (mg/dL) 196 H 124 H (75-99) mg/dL Bqcmi-9-Hejosorikqo (99.0-242.0) mg/dL D. farinae Allrgen IgE (<0.35) kU/L D. pteronyssinus IgE (<0.35) kU/L Ur Specific [place] (1.001-1.035) Urine Glucose (UA) (Negative) IgE (<114.0) IU/mL 04/12/18 04/12/18 04/12/18 Range/Units 07:24 11:18 17:18 WBC (3.8-10.6) k/uL Neutrophils # (1.3-7.7) k/uL Lymphocytes # (1.0-4.8) k/uL Glucose 131 H (74-99) mg/dL POC Glucose (mg/dL) 119 H 154 H (75-99) mg/dL Mcrcy-5-Inkwfkmwfih (99.0-242.0) mg/dL D. farinae Allrgen IgE (<0.35) kU/L D. pteronyssinus IgE (<0.35) kU/L Ur Specific [place] (1.001-1.035) Urine Glucose (UA) (Negative) IgE (<114.0) IU/mL Assessment and Plan Assessment: Acute hypoxic respiratory failure, resolved Acute exacerbation of COPD Community acquired pneumonia Active tobacco abuse Peripheral eosinophilia Alpha-1 antitrypsin deficiency O2 to maintain saturation greater than or equal to 90% Pulmicort, Perforomist, [place] Solu-Medrol taper Singulair Smoking cessation is highly recommended Sputum culture Antibiotics Home O2 evaluation prior to discharge Patient seen and examined covering for Dr. David
--- NOTE | 2018-04-12 18:55 | PN ---
PROGRESS NOTE DATE OF SERVICE: 04/12/2018 This 52-year-old gentleman who was admitted with COPD, acute exacerbation, is being closely monitored. Patient has shortness of breath. Patient is on bronchodilators and steroids. No chest pain. No palpitations. No fever. On exam, alert and oriented x3. Pulse 82, blood pressure 160/102, respiration 26, temperature 97.7, pulse ox 99% on 3 L. HEENT: Conjunctivae normal. NECK: No jugular venous distention. CARDIOVASCULAR SYSTEM: S1, S2 muffled. RESPIRATORY SYSTEM: Breath sounds diminished at the bases. Bilateral scattered rhonchi and crackles. ABDOMEN: Soft, non-tender. LEGS: No edema. No swelling. NERVOUS SYSTEM: No focal deficit. LABS: WBC 17, hemoglobin 14.1. ASSESSMENT: 1. Chronic obstructive pulmonary disease, acute exacerbation, with acute left lower lobe lingular pneumonia, possibly gram-negative, possibly community-acquired. 2. Tachycardia. 3. History of gastrointestinal bleed. 4. Hypertension. 5. Hyperlipidemia. 6. History of dementia. 7. History of chronic obstructive pulmonary disease, stage IV. 8. History of gastric ulcer. 9. History of leg spasms. 10.History of head injury with a brain bleed about 8 years ago. 11.Alpha-1 antitrypsin deficiency. 12.Bilateral inguinal hernia repair. 13.History of nicotine dependence. 14.History of tetrahydrocannabinol. RECOMMENDATIONS AND DISCUSSION: I recommend to continue current medications, continue with symptomatic treatment. Otherwise as this time I would recommend continuing with bronchodilators and steroids. Closely follow with Pulmonary. Guarded prognosis. Further recommendations to follow. MMODL / IJN: [id number] /
[2018-04-12 20:13] LABS: Glucose,Whole Blood 188 mg/dL (75-99)
[2018-04-12] MEDS: MONTELUKAST 10 MG TAB PO SCH (20:41)
[2018-04-13] MEDS: methylPREDNISolone SOD SUCCI 40 MG/ML 1 ML VIAL IV SCH ×2 (00:06→08:04)
[2018-04-13] MEDS: TEMAZEPAM 15 MG CAP PO PRN (00:06)
[2018-04-13] MEDS: HYDROcodone/APAP 5-325MG 1 EACH TAB PO PRN ×3 (00:19→16:21)
[2018-04-13 07:02] LABS: Glucose,Whole Blood 129 mg/dL (75-99)
[2018-04-13] MEDS: INSULIN ASPART (NovoLOG) 100 UNIT/ML VIAL SQ SCH ×4 (07:57→20:00)
[2018-04-13] MEDS: FORMOTEROL FUMARATE 20 MCG/2 ML NEBU INHALATION SCH ×2 (08:04→21:20)
[2018-04-13] MEDS: IPRATROPIUM-ALBUTEROL 3 ML NEB INHALATION SCH ×4 (08:04→21:20)
[2018-04-13] MEDS: BUDESONIDE 1 MG/2 ML NEBU INHALATION SCH ×2 (08:04→21:20)
[2018-04-13 08:50] LABS: Basophils % (A) 0 %; Eosinophils # (A) 0.2 k/uL (0-0.7); Eosinophils % (A) 1 %; HCT 45.6 % (39.0-53.0); HGB 14.7 gm/dL (13.0-17.5); Lymphocytes # (A) 0.7 k/uL (1.0-4.8); Lymphocytes % (A) 5 %; MCH 30.1 pg (25.0-35.0); MCHC 32.1 g/dL (31.0-37.0); MCV 93.7 fL (80.0-100.0); Mean Platelet Volume 6.1; Monocytes # (A) 0.5 k/uL (0-1.0); Monocytes % (A) 3 %; Neutrophils # (A) 14.8 k/uL (1.3-7.7); Neutrophils % (A) 91 %; Platelet Count 204 k/uL (150-450); RBC 4.87 m/uL (4.30-5.90); RDW 13.8 % (11.5-15.5); WBC 16.3 k/uL (3.8-10.6)
[2018-04-13 09:24] LABS: Anion Gap 6 mmol/L; Blood Urea Nitrogen 19 mg/dL (9-20); Calcium 9.5 mg/dL (8.4-10.2); Carbon Dioxide 29 mmol/L (22-30); Chloride 104 mmol/L (98-107); Glucose 182 mg/dL (74-99); Potassium 4.7 mmol/L (3.5-5.1); Sodium 139 mmol/L (137-145)
[2018-04-13] MEDS: PANTOPRAZOLE 40 MG TABLET PO SCH (09:24)
[2018-04-13] MEDS: THIAMINE 100 MG TAB PO SCH (09:24)
[2018-04-13] MEDS: HEPARIN SODIUM,PORCINE 5,000 UNIT/ML 1 ML VIAL SQ SCH ×2 (09:24→20:04)
[2018-04-13 11:14] LABS: Glucose,Whole Blood 125 mg/dL (75-99)
[2018-04-13] MEDS: hydrALAZINE HCL 20 MG/ML 1 ML VIAL IVP PRN (13:14)
[2018-04-13 13:32] LABS: Alpha 1 Anti-Trypsin 77 mg/dL (90 - 200); Alpha-1-Antitrypsin Phenotype MZ
--- NOTE | 2018-04-13 14:34 | P.PN ---
Subjective Progress Note Date: 04/13/18 Patient seen and examined in consultation for COPD. The patient states he has been short of breath for over a week. He states he knew he was coming down with something. He denies fevers and chills. The patient states that he has been using his inhaler more than he should be any is been running out. He has been using his daughter's inhaler. He states he does cough but never produces phlegm. he states he does not wear oxygen at home. He does continue to smoke and has a known history of alpha-1 antitrypsin deficiency. Chest x-ray the patient was found to have a small lingular infiltrate. The patient states that he would like to use oxygen at home but has never been able to qualify in the past. 04/12/2018: Patient seen and examined with multiple family members at bedside. the patient states he still short of breath, but he is a little better. The family has multiple questions which I attempt to answer, however, they begin to argue amongst themselves. The patient is on [facility]. 04/13/2017: Patient seen and examined. Patient states he is hoping to home tomorrow. He states he has been ambulating in the hallway and feels like his breathing is better. He is still wheezing but states that he always wheezes and it never goes away. Objective - Vital Signs Vital signs: Vital Signs Temp 98.7 F 04/13/18 11:47 Pulse 98 04/13/18 12:32 Resp 18 04/13/18 11:47 BP 198/106 04/13/18 11:47 Pulse Ox 94 L 04/13/18 11:47 Intake & Output 04/12/18 04/13/18 04/13/18 18:59 06:59 18:59 Intake Total 730 600 Balance 730 600 Intake: Intake, IV Titration 250 Amount Azithromycin 500 mg In 250 Sodium Chloride 0.9% 250 ml @ 250 mls/hr IVPB DAILY@1600 [facility] Rx#: [id number] Oral 480 600 Other: Voiding Method Toilet Toilet Toilet # Voids 4 2 - Exam General: Alert and oriented x 3, NAD, tearful CV: RRR, s1/s2 Lungs: bilateral expiratory wheezing Abd: Soft, NT/ND, +BS Ext: no edema - Labs CBC & Chem 7: 04/13/18 08:31 04/13/18 08:31 Labs: Abnormal Lab Results - Last 24 Hours (Table) 04/11/18 04/12/18 04/12/18 Range/Units 08:15 17:18 20:12 WBC (3.8-10.6) k/uL Neutrophils # (1.3-7.7) k/uL Lymphocytes # (1.0-4.8) k/uL Creatinine (0.66-1.25) mg/dL Glucose (74-99) mg/dL POC Glucose (mg/dL) 154 H 188 H (75-99) mg/dL Kqzbl-8-Xrqzudqnkuz 77 L (90 - 200) mg/dL 04/13/18 04/13/18 04/13/18 Range/Units 07:01 08:31 08:31 WBC 16.3 H (3.8-10.6) k/uL Neutrophils # 14.8 H (1.3-7.7) k/uL Lymphocytes # 0.7 L (1.0-4.8) k/uL Creatinine 0.64 L (0.66-1.25) mg/dL Glucose 182 H (74-99) mg/dL POC Glucose (mg/dL) 129 H (75-99) mg/dL Uiufy-1-Omcjmvdtkfz (90 - 200) mg/dL 04/13/18 Range/Units 11:11 WBC (3.8-10.6) k/uL Neutrophils # (1.3-7.7) k/uL Lymphocytes # (1.0-4.8) k/uL Creatinine (0.66-1.25) mg/dL Glucose (74-99) mg/dL POC Glucose (mg/dL) 125 H (75-99) mg/dL Qywfd-5-Kfqvwvbhtdd (90 - 200) mg/dL Assessment and Plan Assessment: Acute hypoxic respiratory failure, resolved Acute exacerbation of COPD Community acquired pneumonia Active tobacco abuse Peripheral eosinophilia Alpha-1 antitrypsin deficiency O2 to maintain saturation greater than or equal to 90% Pulmicort, PerforomistKeaton Solu-Medrol - change to PO Prednisone Singulair Smoking cessation is highly recommended Sputum culture Antibiotics Home O2 evaluation prior to discharge Patient seen and examined covering for Dr. David Consult ENT for voice changes, concern for vocal cord mass Will need follow up CT in 3 months to monitor nodules/thickening of fissures
[2018-04-13] MEDS ORDERED: AZITHROMYCIN 500 MG TAB PO SCH (16:00)
[2018-04-13] MEDS ORDERED: cloNIDine HCL 0.1 MG TAB PO PRN (16:41)
[2018-04-13 17:00] LABS: Glucose,Whole Blood 133 mg/dL (75-99)
[2018-04-13] MEDS: cloNIDine HCL 0.1 MG TAB PO SCH ×2 (17:12→21:44)
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
[2018-04-13] MEDS: MONTELUKAST 10 MG TAB PO SCH (20:04)
[2018-04-13 20:10] LABS: Glucose,Whole Blood 110 mg/dL (75-99)
[2018-04-13 20:36] VITALS: RESP 18
[2018-04-14] MEDS: HYDROcodone/APAP 5-325MG 1 EACH TAB PO PRN ×2 (04:29→11:11)
[2018-04-14] MEDS: hydrALAZINE HCL 20 MG/ML 1 ML VIAL IVP PRN (04:30)
[2018-04-14] MEDS: IPRATROPIUM-ALBUTEROL 3 ML NEB INHALATION SCH ×2 (07:54→11:14)
[2018-04-14] MEDS: FORMOTEROL FUMARATE 20 MCG/2 ML NEBU INHALATION SCH (07:54)
[2018-04-14] MEDS: BUDESONIDE 1 MG/2 ML NEBU INHALATION SCH (07:55)
[2018-04-14 08:49] LABS: Basophils # (A) 0.1 k/uL (0-0.2); Basophils % (A) 1 %; Eosinophils # (A) 0.1 k/uL (0-0.7); Eosinophils % (A) 1 %; HCT 44.9 % (39.0-53.0); HGB 14.5 gm/dL (13.0-17.5); Lymphocytes # (A) 1.9 k/uL (1.0-4.8); Lymphocytes % (A) 17 %; MCH 30.2 pg (25.0-35.0); MCHC 32.3 g/dL (31.0-37.0); MCV 93.6 fL (80.0-100.0); Mean Platelet Volume 6.6; Monocytes # (A) 0.9 k/uL (0-1.0); Monocytes % (A) 8 %; Neutrophils # (A) 8.1 k/uL (1.3-7.7); Neutrophils % (A) 72 %; Platelet Count 180 k/uL (150-450); RDW 13.8 % (11.5-15.5); WBC 11.2 k/uL (3.8-10.6)
[2018-04-14] MEDS: INSULIN ASPART (NovoLOG) 100 UNIT/ML VIAL SQ SCH ×2 (08:49→12:36)
[2018-04-14] MEDS: cloNIDine HCL 0.1 MG TAB PO SCH (08:50)
[2018-04-14] MEDS: HEPARIN SODIUM,PORCINE 5,000 UNIT/ML 1 ML VIAL SQ SCH (08:50)
[2018-04-14] MEDS: PANTOPRAZOLE 40 MG TABLET PO SCH (08:50)
[2018-04-14] MEDS: THIAMINE 100 MG TAB PO SCH (08:52)
[2018-04-14] MEDS ORDERED: predniSONE 20 MG TAB PO SCH (09:00)
[2018-04-14 09:02] LABS: Anion Gap 4 mmol/L; Blood Urea Nitrogen 23 mg/dL (9-20); Calcium 9.3 mg/dL (8.4-10.2); Carbon Dioxide 33 mmol/L (22-30); Chloride 101 mmol/L (98-107); Glucose 102 mg/dL (74-99); Potassium 4.3 mmol/L (3.5-5.1); Sodium 138 mmol/L (137-145)
[2018-04-14 11:56] LABS: Glucose,Whole Blood 86 mg/dL (75-99)
[2018-04-14 11:57] LABS: Glucose,Whole Blood 101 mg/dL (75-99)
[2018-04-14 12:13] VITALS: BP 154/92; PULSE 91; TEMP 96.9
--- NOTE | 2018-04-14 12:15 | P.PN ---
Subjective Progress Note Date: 04/14/18 Patient seen and examined in consultation for COPD. The patient states he has been short of breath for over a week. He states he knew he was coming down with something. He denies fevers and chills. The patient states that he has been using his inhaler more than he should be any is been running out. He has been using his daughter's inhaler. He states he does cough but never produces phlegm. he states he does not wear oxygen at home. He does continue to smoke and has a known history of alpha-1 antitrypsin deficiency. Chest x-ray the patient was found to have a small lingular infiltrate. The patient states that he would like to use oxygen at home but has never been able to qualify in the past. 04/12/2018: Patient seen and examined with multiple family members at bedside. the patient states he still short of breath, but he is a little better. The family has multiple questions which I attempt to answer, however, they begin to argue amongst themselves. The patient is on [facility]. 04/13/2017: Patient seen and examined. Patient states he is hoping to home tomorrow. He states he has been ambulating in the hallway and feels like his breathing is better. He is still wheezing but states that he always wheezes and it never goes away. 04/14/2017: Patient seen and examined. Patient is ambulating in the hallway. He states he is feeling well and is ready to go home. He did do an ambulatory pulse ox and his O2 saturation remained 100%. Objective - Vital Signs Vital signs: Vital Signs Temp 96.9 F L 04/14/18 11:51 Pulse 91 04/14/18 11:51 Resp 18 04/14/18 11:51 BP 154/92 04/14/18 11:51 Pulse Ox 100 04/14/18 11:57 Intake & Output 04/13/18 04/14/18 04/14/18 18:59 06:59 18:59 Intake Total 600 3290 240 Balance 600 3290 240 Intake: Intake, IV Titration 50 Amount cefTRIAXone 1 gm In 50 Sodium Chloride 0.9% 50 ml @ 100 mls/hr IVPB DAILY@1800 [facility] Rx#: [id number] Oral 600 3240 240 Other: Voiding Method Toilet Toilet # Voids 1 - Exam General: Alert and oriented x 3, NAD, tearful CV: RRR, s1/s2 Lungs: Diminished breath sounds bilaterally Abd: Soft, NT/ND, +BS Ext: no edema - Labs CBC & Chem 7: 04/14/18 08:15 04/14/18 08:15 Labs: Abnormal Lab Results - Last 24 Hours (Table) 04/11/18 04/13/18 04/13/18 Range/Units 08:15 16:58 19:58 WBC (3.8-10.6) k/uL Neutrophils # (1.3-7.7) k/uL Carbon Dioxide (22-30) mmol/L BUN (9-20) mg/dL Glucose (74-99) mg/dL POC Glucose (mg/dL) 133 H 110 H (75-99) mg/dL Fjprb-0-Iyirntmvanw 77 L (90 - 200) mg/dL 04/14/18 04/14/18 04/14/18 Range/Units 08:15 08:15 11:10 WBC 11.2 H (3.8-10.6) k/uL Neutrophils # 8.1 H (1.3-7.7) k/uL Carbon Dioxide 33 H (22-30) mmol/L BUN 23 H (9-20) mg/dL Glucose 102 H (74-99) mg/dL POC Glucose (mg/dL) 101 H (75-99) mg/dL Ciybv-8-Wwworwaqoll (90 - 200) mg/dL Assessment and Plan Assessment: Acute hypoxic respiratory failure, resolved Acute exacerbation of COPD Community acquired pneumonia Active tobacco abuse Peripheral eosinophilia Alpha-1 antitrypsin deficiency O2 to maintain saturation greater than or equal to 90% Pulmicort, PerforomistKeaton Solu-Medrol - change to PO Prednisone Singulair Smoking cessation is highly recommended Sputum culture Antibiotics Home O2 evaluation prior to discharge Patient seen and examined covering for Dr. David ENT for voice changes, concern for vocal cord mass Will need follow up CT in 3 months to monitor nodules/thickening of fissures Ok to DC from pulmonary standpoint
--- NOTE | 2018-04-15 06:47 | DS ---
DISCHARGE SUMMARY DATE OF SERVICE: 04/14/2018 FINAL DIAGNOSES: 1. Chronic obstructive pulmonary disease acute exacerbation with acute left lower pneumonia possibly gram-negative, possibly community acquired. 2. Tachycardia. 3. History of gastrointestinal bleed. 4. Hypertension. 5. Hyperlipidemia. 6. History of dementia. 7. Chronic obstructive pulmonary disease stage IV. 8. History of gastric ulcer. 9. History of leg spasms. 10.History of head injury with brain bleed about 8 years ago. 11.History of Alpha 1 antitrypsin deficiency. 12.Bilateral inguinal hernia repair. 13.History of nicotine dependence. 14.History of THC. DISCHARGE DISPOSITION: The patient is being discharged in stable condition with guarded prognosis. HISTORY OF PRESENT ILLNESS: This is a 52-year-old gentleman being followed by Dr. Kohler in the outpatient setting, was admitted significant COPD acute exacerbation as well as pneumonia. Patient was seen by Pulmonary and patient was treated on bronchodilators and antibiotics and steroids. Patient improved significantly. Patient is keen on going home at this time. On exam, vital signs are stable. Cardio system: Abdomen soft. Nervous system: No focal deficits. Pulse ox is about 94% on room air. DISCHARGE ADVICE AND MEDICATIONS: 1. Diet is cardiac diet. 2. Activity limited until followup. 3. Follow up with Dr. Kohler in 2-3 days. 4. Follow up with Pulmonary and ENT as recommended. MEDICATIONS ARE: 1. Tylenol 500 mg q.6h p.r.n. 2. Albuterol p.r.n. 3. Zithromax 500 mg p.o. daily for 5 days. 4. Pulmicort 1 mg b.i.d. 6. Ceftin 500 mg p.o. b.i.d. for 3 days. 7. Catapres 0.1 p.o. t.i.d. 8. Perforomist 20 mcg p.o. b.i.d. 9. DuoNeb q.i.d. and p.r.n. 10.Singular 10 mg q.h.s. 11.Protonix 40 mg with breakfast. 12.Prednisone taper 40 mg daily for 3 days, 30 for 3 days, 20 for 3 days and 10 for 3 days. 13.Thiamine 100 mg p.o. daily. Once again, the patient is being discharged in stable condition with guarded prognosis. MMODL / IJN: [id number] / [email or web address]
[2018-04-18 01:51] LABS: Alternaria Alternata IgG <2.0 mcg/mL (< 13.6); Aspergillus fumigatus IgG Not detected (Not detected); Aureobasidium pullulans IgG <2.0 mcg/mL (< 13.6); Cladosporium herbarium IgG 2.2 mcg/mL (< 14.7); Phoma ssp. IgG <2.0 mcg/mL (< 6.6); Saccaharomospora viridis Not detected (Not detected); Saccaharopoly. rectivirgula Not detected (Not detected)
== END 2018-04-14 14:15 | disposition home or self-care (01) ==
LOC: EC 13:31 → INTOOBSV 16:39 → 3NMEDONC 16:39 → UNDODISIN 04-14 14:15
PROVIDERS: ADMIT Hospitalist; ATTEND Hospitalist
DX: J44.1 Chronic obstructive pulmonary disease with (acute) exacerbation (principal); J44.0 Chronic obstructive pulmonary disease with (acute) lower respiratory infection; J96.01 Acute respiratory failure with hypoxia; J18.9 Pneumonia, unspecified organism; E88.01 Alpha-1-antitrypsin deficiency; D72.1 Eosinophilia; F03.90 Unspecified dementia, unspecified severity, without behavioral disturbance, psychotic disturbance, mood disturbance, and anxiety; J20.9 Acute bronchitis, unspecified; F17.200 Nicotine dependence, unspecified, uncomplicated; I10 Essential (primary) hypertension; R00.0 Tachycardia, unspecified; Z79.51 Long term (current) use of inhaled steroids; Z79.899 Other long term (current) drug therapy; Z87.11 Personal history of peptic ulcer disease; Z87.820 Personal history of traumatic brain injury; Z87.19 Personal history of other diseases of the digestive system; R41.3 Other amnesia; Z81.8 Family history of other mental and behavioral disorders
CPT/HCPCS: 96376 ×5; 96365 ×2; 96366 ×3; 96372 ×4; 96368; 96375; 99291; 36415; 94640 ×9; 94760 ×2; 94667; 94644; 93005; 82103 ×2; 86003; 80053; 80048 ×4; 86001; 82104; 82550; 82553; 83735; 84484; 85025 ×5; 85610; 85730; 81003; 86609; 86606; 82785; 83036; 71046; 71250; G0378 ×5; J0360 ×3; J1644 ×4; J2920; J2930 ×3; J0456 ×3; J0696 ×4; J7512; 96374

== ENCOUNTER 2018-11-13 14:55 | Emergency (ER) | payer OTHER ==
[2018-11-13 15:06] VITALS: TEMP 98.3
[2018-11-13 15:56] LABS: Basophils # (A) 0.1 k/uL (0-0.2); Basophils % (A) 1 %; Eosinophils # (A) 0.3 k/uL (0-0.7); Eosinophils % (A) 3 %; HCT 44.5 % (39.0-53.0); HGB 14.9 gm/dL (13.0-17.5); Lymphocytes # (A) 1.2 k/uL (1.0-4.8); Lymphocytes % (A) 13 %; MCH 29.4 pg (25.0-35.0); MCHC 33.4 g/dL (31.0-37.0); Mean Platelet Volume 6.7; Monocytes # (A) 0.7 k/uL (0-1.0); Monocytes % (A) 7 %; Neutrophils # (A) 6.8 k/uL (1.3-7.7); Neutrophils % (A) 74 %; Platelet Count 219 k/uL (150-450); RBC 5.06 m/uL (4.30-5.90); RDW 15.4 % (11.5-15.5); WBC 9.2 k/uL (3.8-10.6)
[2018-11-13 16:01] LABS: ALT 78 U/L (21-72); AST 61 U/L (17-59); African American GFR (CKD) >90 (>60 ml/min/1.73 sqM); Albumin 4.5 g/dL (3.5-5.0); Alkaline Phosphatase 103 U/L (38-126); Anion Gap 10 mmol/L; Blood Urea Nitrogen 10 mg/dL (9-20); Calcium 8.9 mg/dL (8.4-10.2); Carbon Dioxide 27 mmol/L (22-30); Chloride 99 mmol/L (98-107); Glucose 88 mg/dL (74-99); Potassium 4.2 mmol/L (3.5-5.1); Sodium 136 mmol/L (137-145); Total Bilirubin 0.8 mg/dL (0.2-1.3); Total Protein 7.3 g/dL (6.3-8.2)
[2018-11-13] MEDS ORDERED: ALBUTEROL NEBULIZED 2.5 MG/3 ML INHALATION STA (16:37)
[2018-11-13] MEDS ORDERED: DEXAMETHASONE 4 MG TAB PO STA (16:37)
[2018-11-13] MEDS ORDERED: IPRATROPIUM 0.5 MG/2.5 ML NEBU INHALATION STA (16:37)
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
--- NOTE | 2018-11-13 16:59 | XR ---
EXAMINATION TYPE: XR chest 2V DATE OF EXAM: 11/13/2018 COMPARISON: 04/10/2018 HISTORY: Short of breath TECHNIQUE: Frontal and lateral views of the chest are obtained. FINDINGS: There is coarse interstitial density in the mid and lower lung santizo. Heart size is joanne l. There is no heart failure. There are no hilar masses. There is no pleural effusion. IMPRESSION: Mild to moderate interstitial fibrotic changes. No change compared to old exam.
[2018-11-13 17:08] VITALS: RESP 16
[2018-11-13 18:14] VITALS: BP 137/86; PULSE 76
== END 2018-11-13 18:13 | disposition home or self-care (01) ==
LOC: EC 14:55
DX: J44.1 Chronic obstructive pulmonary disease with (acute) exacerbation (principal); I10 Essential (primary) hypertension; E88.01 Alpha-1-antitrypsin deficiency; R20.0 Anesthesia of skin; Z79.899 Other long term (current) drug therapy; Z79.51 Long term (current) use of inhaled steroids; Z87.891 Personal history of nicotine dependence; Z87.19 Personal history of other diseases of the digestive system
CPT/HCPCS: 36415; 94644; 93005; 83880; 80053; 83605; 84484; 85025; 71046; 99285; J8540

== ENCOUNTER 2019-08-19 20:59 | Observation (INO) | payer OTHER ==
[2019-08-19] MEDS ORDERED: IPRATROPIUM-ALBUTEROL 3 ML NEB INHALATION STA (21:25)
[2019-08-19] MEDS ORDERED: SODIUM CHLORIDE 0.9% 1,000 ML IV STA (21:25)
[2019-08-19] MEDS ORDERED: methylPREDNISolone SOD SUCCI 125 MG/2 ML VIAL IV STA (21:25)
[2019-08-19 21:43] LABS: Basophils # (A) 0.1 k/uL (0-0.2); Basophils % (A) 1 %; Eosinophils # (A) 0.2 k/uL (0-0.7); Eosinophils % (A) 2 %; HCT 45.8 % (39.0-53.0); HGB 14.9 gm/dL (13.0-17.5); Lymphocytes # (A) 1.1 k/uL (1.0-4.8); Lymphocytes % (A) 10 %; MCH 29.1 pg (25.0-35.0); MCHC 32.6 g/dL (31.0-37.0); MCV 89.3 fL (80.0-100.0); Mean Platelet Volume 6.5; Monocytes # (A) 0.6 k/uL (0-1.0); Monocytes % (A) 6 %; Neutrophils # (A) 8.9 k/uL (1.3-7.7); Neutrophils % (A) 81 %; Platelet Count 193 k/uL (150-450); RBC 5.13 m/uL (4.30-5.90); RDW 13.8 % (11.5-15.5); WBC 11.1 k/uL (3.8-10.6)
[2019-08-19 21:57] LABS: ALT 52 U/L (4-49); AST 47 U/L (17-59); African American GFR (CKD) >90 (>60 ml/min/1.73 sqM); Albumin 4.6 g/dL (3.5-5.0); Alkaline Phosphatase 146 U/L (38-126); Anion Gap 10 mmol/L; Blood Urea Nitrogen 5 mg/dL (9-20); Calcium 9.2 mg/dL (8.4-10.2); Carbon Dioxide 24 mmol/L (22-30); Chloride 100 mmol/L (98-107); Glucose 155 mg/dL (74-99); Non-African American GFR(CKD) >90 (>60 ml/min/1.73 sqM); Potassium 3.5 mmol/L (3.5-5.1); Sodium 134 mmol/L (137-145); Total Bilirubin 1.2 mg/dL (0.2-1.3); Total Protein 7.6 g/dL (6.3-8.2)
--- NOTE | 2019-08-19 22:01 | XR ---
EXAMINATION TYPE: XR chest 2V DATE OF EXAM: 08/19/2019 COMPARISON: 11/13/2018 HISTORY: Short of breath TECHNIQUE: 2 views FINDINGS: There is some mild interstitial infiltrates in the lower lung santizo. Heart size is normal. There is no heart failure. There is no pleural effusion. There are no hilar masses. Bony thorax is i ntact. IMPRESSION: Increased interstitial pulmonary density consistent with some interstitial pneumonia incr eased compared to old exam. Normal heart.
[2019-08-19 22:13] LABS: INR 0.9 (<1.2); Partial Thromboplastin Time 22.6 sec (22.0-30.0); Prothrombin Time 9.7 sec (9.0-12.0)
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
[2019-08-19] MEDS ORDERED: IPRATROPIUM-ALBUTEROL 3 ML NEB INHALATION PRN (22:39)
[2019-08-19] MEDS ORDERED: LEVOFLOXACIN 750MG-D5W PMX 750 MG in DEXTROSE/WATER 1 150ML.BAG IVPB STA (22:44)
[2019-08-19 23:18] LABS: ABG Base Excess 0.9 mmol/L; ABG HCO3 25 mmol/L (21-25); ABG Oxygen Saturation 97.8 % (94-97); ABG PCO2 35 mmHg (35-45); ABG PH 7.46 (7.35-7.45); ABG PO2 104 mmHg (83-108); ABG TCO2 26 mmol/L (19-24); Allen Test Performed? Yes
[2019-08-20] MEDS ORDERED: THIAMINE 100 MG/ML 2 ML VIAL IM STA (01:07)
[2019-08-20] MEDS ORDERED: LORazepam 2 MG/ML INJ IV PRN ×3 (01:07)
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
[2019-08-20] MEDS: methylPREDNISolone SOD SUCCI 125 MG/2 ML VIAL IV SCH ×3 (06:20→17:01)
[2019-08-20] MEDS: IPRATROPIUM-ALBUTEROL 3 ML NEB INHALATION SCH ×3 (07:29→15:41)
[2019-08-20] MEDS ORDERED: PANTOPRAZOLE 40 MG TABLET PO SCH (07:30)
[2019-08-20] MEDS ORDERED: SYMBICORT 160-4.5 MCG INHALER INHALATION SCH (08:00)
[2019-08-20] MEDS ORDERED: amLODIPine 5 MG TAB PO SCH (09:00)
[2019-08-20] MEDS ORDERED: MULTIVITAMINS, THERA 1 EACH TAB PO SCH (09:00)
[2019-08-20] MEDS: cloNIDine HCL 0.1 MG TAB PO SCH ×2 (10:24→17:01)
[2019-08-20] MEDS: HEPARIN SODIUM,PORCINE 5,000 UNIT/ML 1 ML VIAL SQ SCH ×2 (10:25→17:00)
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
[2019-08-20 15:37] VITALS: BP 149/93; TEMP 98.9
[2019-08-20 15:44] VITALS: RESP 18
[2019-08-20 16:02] VITALS: PULSE 90
[2019-08-20] MEDS ORDERED: THIAMINE 100 MG TAB PO SCH (17:30)
--- NOTE | 2019-08-20 18:09 | P.DS ---
Providers Date of admission: 08/19/19 22:23 Expected date of discharge: 08/20/19 Attending physician: Francesca Bain MD Consults: 08/20/19 11:58 Consult Physician Routine Consulting Provider: Bryson David Consult Reason/Comments: COPD exac Do you want consulting provider notified?: Yes Primary care physician: Stated None Hospital Course: The patient is a 54-year-old male with a PMH of alpha-1 antitrypsin deficiency, EtOH abuse, COPD (on 2 L oxygen while sleeping), hypertension, and hyperlipidemia who presented to the ED with complaints of shortness of breath. The patient reported that his shortness of breath had gradually been worsening over the past few days. He reported continued use of his inhalers with little relief. He also endorsed some left-sided chest discomfort, pleuritic, nonradiating, brought on with excessive coughing or deep breathing, 6 out of 10. He denied fever, chills, or sore throat. The patient also reports drinking 15- 20 beers daily, and notes that he has been trying to cut down which has caused him to have occasional shakiness. Denied nausea, vomiting, diaphoresis, or dizziness. Denied abdominal pain or diarrhea. He reports a prior history of tobacco abuse though has quit several years ago. In the ED, the patient was tachycardic with pulse of 115, BP 185/147, saturating 98% on room air, with respiratory rate of 20. Laboratory evaluation revealed a troponin of less than 0.012, WBC count of 11.1, hemoglobin 14.9, platelets 193, sodium 134, BUN 5, creatinine 0.57, glucose 155, AST 55, ALT 146, with ABG showing pCO2 of 35. Chest x-ray revealed findings suspicious for interstitial pneumonia. Patient was treated for acute COPD exacerbation. He was started on duo nebs and Solu-Medrol. Pulmicort inhaler was restarted. Pulmonology was consulted for further management. D-dimer was negative. Patient was placed on [facility] protocol for history of alcohol abuse. His home medications were restarted for hypertension. Patient was seen and examined. No acute events overnight. Patient reports significant improvement in his breathing since admission. Patient states that he is back to baseline. Requesting discharge. General: [non toxic], [no distress], [appears at stated age] Derm: [warm], [dry] Head: [atraumatic], [normocephalic], [symmetric] Eyes: [EOMI], [no lid lag], [anicteric sclera] Mouth: [no lip lesion], [mucus membranes moist] Cardiovascular: [S1S2 reg], [no murmur], [positive DP pulse bilateral], Lungs: [Decreased breath sounds bilateral], [no rhonchi, no rales] , [no accessory muscle use] Abdominal: [soft], [ nontender to palpation], [no guarding], [no appreciable organomegaly] Ext: [no gross muscle atrophy], [no edema], [no contractures] Neuro: [no focal neuro deficits] Psych: [Alert], [oriented], [appropriate affect] Acute COPD exacerbation with concerns of pneumonia -Solu-Medrol 60 mg every 6 hours to be transitioned to Medrol Dosepak for discharge -DuoNeb's -Complete 5 more days of Levaquin for a total of 7 days of antibiotics -Consult pulmonary medicine -Pulmicort inhaler Chest pain, pleuritic, likely musculoskeletal in origin due to excessive coughing -D-dimer negative -Cardiac monitoring EtOH abuse, impending withdrawal -[facility] protocol -Thiamine, folate, multivitamin -Fall, seizure, aspiration precaution -Advised on importance of cessation Hypertension -Continue with home meds Abnormal LFTs, likely secondary to EtOH abuse -Monitor for now DVT prophylaxis -Heparin subq [Patient admitted for COPD exacerbation and possible pneumonia. Patient states he is back to baseline and would like to be discharged. Discussed with RN, 6 minute walk test ordered. Plans on DC home today if patient is able to ambulate without any difficulties. He is to complete 5 more days of oral antibiotics. Solu-Medrol transitioned to Medrol Dosepak. DuoNeb's are refilled to patient preferred pharmacy. This complex discharge took about 35 minutes to complete.] Pertinent Studies: Chest x-ray Patient Condition at Discharge: Stable Plan - Discharge Summary Discharge Rx Participant: No New Discharge Prescriptions: New Levofloxacin [Levaquin] 500 mg PO DAILY 5 Days #5 tab methylPREDNISolone [Medrol Dose Pack] 4 mg PO DIRECTED #1 pack Continue cloNIDine HCL [Catapres] 0.1 mg PO TID #90 tab Montelukast [Singulair] 10 mg PO HS #30 tab Omeprazole 20 mg PO DAILY Fluticasone/Salmeterol [Fluticasone-Salmeterol 232-14] 1 puff INHALATION RT- BID Omalizumab [Xolair] 300 mg INJ Q28D Albuterol Sulfate [Ventolin HFA] 2 puff INHALATION RT-Q6H amLODIPine [Norvasc] 5 mg PO DAILY Ipratropium-Albuterol Nebulize [Duoneb 0.5 mg-3 mg/3 ml Soln] 3 ml INHALATION RT-QID #120 ampul.neb Discharge Medication List Montelukast [Singulair] 10 mg PO HS #30 tab 04/14/18 [Rx] cloNIDine HCL [Catapres] 0.1 mg PO TID #90 tab 04/14/18 [Rx] Fluticasone/Salmeterol [Fluticasone-Salmeterol 232-14] 1 puff INHALATION RT-BID 11/13/18 [History] Omeprazole 20 mg PO DAILY 11/13/18 [History] Albuterol Sulfate [Ventolin HFA] 2 puff INHALATION RT-Q6H 08/19/19 [History] Omalizumab [Xolair] 300 mg INJ Q28D 08/19/19 [History] amLODIPine [Norvasc] 5 mg PO DAILY 08/19/19 [History] Ipratropium-Albuterol Nebulize [Duoneb 0.5 mg-3 mg/3 ml Soln] 3 ml INHALATION RT-QID #120 ampul.neb 08/20/19 [Rx] Levofloxacin [Levaquin] 500 mg PO DAILY 5 Days #5 tab 08/20/19 [Rx] methylPREDNISolone [Medrol Dose Pack] 4 mg PO DIRECTED #1 pack 08/20/19 [Rx] Follow up Appointment(s)/Referral(s): None,Stated [Primary Care Provider] - 1-2 days Bryson David MD [STAFF PHYSICIAN] - 1 Week Activity/Diet/Wound Care/Special Instructions: Diet: Low-salt Follow-up with PCP within 3 days of discharge. Follow up with pulmonology within 1 week of discharge. Take all medications as advised. Come back to the ED for worsening shortness of breath, chest pain, palpitations. Discharge Disposition: HOME SELF-CARE
[2019-08-20] MEDS ORDERED: FLUTICASONE INHALATION SCH (20:00)
[2019-08-20] MEDS ORDERED: SALMETEROL INHALATION SCH (20:00)
[2019-08-20] MEDS ORDERED: MONTELUKAST 10 MG TAB PO SCH (21:00)
== END 2019-08-20 18:13 | disposition home or self-care (01) ==
LOC: EC 20:59 → INTOOBSV 22:23 → 4SSUR 22:23 → UNDODISIN 08-20 18:13
PROVIDERS: ADMIT Internal Medicine; ATTEND Internal Medicine
DX: J44.1 Chronic obstructive pulmonary disease with (acute) exacerbation (principal); J96.21 Acute and chronic respiratory failure with hypoxia; I10 Essential (primary) hypertension; J44.0 Chronic obstructive pulmonary disease with (acute) lower respiratory infection; E88.01 Alpha-1-antitrypsin deficiency; E78.5 Hyperlipidemia, unspecified; R94.5 Abnormal results of liver function studies; Z11.59 Encounter for screening for other viral diseases; F10.10 Alcohol abuse, uncomplicated; Z79.899 Other long term (current) drug therapy; Z87.891 Personal history of nicotine dependence; Z99.81 Dependence on supplemental oxygen; Z87.11 Personal history of peptic ulcer disease; Z87.820 Personal history of traumatic brain injury; Z81.8 Family history of other mental and behavioral disorders; Z03.818 Encounter for observation for suspected exposure to other biological agents ruled out
CPT/HCPCS: 96376; 96361; 96365; 96366; 96367; 96375 ×2; 99285; 36415; 94640 ×3; 36600; 93005; 85379; 80053; 82805; 83605; 84484; 85025; 85610; 85730; 71046; G0378 ×2; U0003; J2060; J2930 ×2; J0696; J1956

== ENCOUNTER 2021-03-19 16:36 | Observation (INO) | payer OTHER ==
[2021-03-19] MEDS ORDERED: methylPREDNISolone SOD SUCCI 125 MG/2 ML VIAL IV STA (16:42)
[2021-03-19] MEDS ORDERED: SODIUM CHLORIDE 0.9% 1,000 ML IV STA (16:42)
[2021-03-19] MEDS ORDERED: LORazepam 2 MG/ML INJ IV STA (16:45)
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
[2021-03-19 17:06] LABS: Basophils # (A) 0.1 k/uL (0-0.2); Basophils % (A) 1 %; Eosinophils # (A) 1.3 k/uL (0-0.7); Eosinophils % (A) 8 %; HCT 37.2 % (39.0-53.0); HGB 11.6 gm/dL (13.0-17.5); Hypochromasia Marked; Lymphocytes # (A) 1.1 k/uL (1.0-4.8); Lymphocytes % (A) 7 %; MCH 26.4 pg (25.0-35.0); MCHC 31.1 g/dL (31.0-37.0); MCV 84.9 fL (80.0-100.0); Mean Platelet Volume 7.1; Monocytes # (A) 0.7 k/uL (0-1.0); Monocytes % (A) 5 %; Neutrophils # (A) 12.2 k/uL (1.3-7.7); Neutrophils % (A) 79 %; Platelet Count 281 k/uL (150-450); RBC 4.39 m/uL (4.30-5.90); RDW 14.6 % (11.5-15.5); WBC 15.5 k/uL (3.8-10.6)
[2021-03-19 17:21] LABS: ALT 25 U/L (4-49); AST 30 U/L (17-59); African American GFR (CKD) >90 (>60 ml/min/1.73 sqM); Albumin 4.4 g/dL (3.5-5.0); Alkaline Phosphatase 113 U/L (38-126); Anion Gap 5 mmol/L; Blood Urea Nitrogen 15 mg/dL (9-20); Carbon Dioxide 35 mmol/L (22-30); Chloride 97 mmol/L (98-107); Glucose 125 mg/dL (74-99); INR 0.9 (<1.2); Magnesium 1.8 mg/dL (1.6-2.3); Non-African American GFR(CKD) >90 (>60 ml/min/1.73 sqM); Partial Thromboplastin Time 22.1 sec (22.0-30.0); Prothrombin Time 9.7 sec (9.0-12.0); Sodium 137 mmol/L (137-145); Total Bilirubin 0.5 mg/dL (0.2-1.3); Total Protein 7.4 g/dL (6.3-8.2)
[2021-03-19] MEDS: MAGNESIUM SULFATE-D5W PMX 1 GM in DEXTROSE/WATER 1 100ML.BAG IVPB SCH ×2 (19:00→20:42)
--- NOTE | 2021-03-19 19:26 | XR ---
EXAMINATION: XR chest 1V DATE AND TIME: 03/19/2021 6:50 PM CLINICAL INDICATION: difficulty breathing TECHNIQUE: AP portable upright COMPARISON: 08/19/2019 FINDINGS: The lungs demonstrate a moderate pattern bilateral patchy ill-defined added opacities which silhouett e the pulmonary vasculature is greater on the right and are suspicious for atypical pneumonia if clin ically supported. The pleural spaces are negative. The cardiac silhouette is not enlarged. The remainder of the mediastinal silhouette is unremarkable. The skeletal structures and soft tissues are negative for acute findings. IMPRESSION: Pulmonary findings.
[2021-03-19] MEDS ORDERED: LEVOFLOXACIN 750MG-D5W PMX 750 MG in DEXTROSE/WATER 1 150ML.BAG IVPB STA (19:45)
[2021-03-19] MEDS ORDERED: cefTRIAXone IN SWFI 1,000 MG/10 ML SYRINGE IVP STA ×2 (20:53→20:56)
[2021-03-19] MEDS ORDERED: NICOTINE 21MG/24HR PATCH TRANSDERM STA (21:09)
[2021-03-19] MEDS: SODIUM CHLORIDE 0.9% 1,000 ML IV SCH (22:03)
[2021-03-20] MEDS ORDERED: methylPREDNISolone SOD SUCCI 125 MG/2 ML VIAL IV SCH
[2021-03-20] MEDS: hydrALAZINE HCL 50 MG TAB PO SCH ×4 (00:50→21:47)
[2021-03-20] MEDS: cloNIDine HCL 0.1 MG TAB PO SCH ×4 (00:50→21:47)
[2021-03-20] MEDS: IPRATROPIUM-ALBUTEROL 3 ML NEB INHALATION PRN ×3 (00:57→11:13)
[2021-03-20] MEDS: HYDROcodone/APAP 5-325MG 1 EACH TAB PO PRN ×4 (05:17→21:47)
[2021-03-20 05:29] LABS: Basophils % (A) 0 %; Eosinophils % (A) 0 %; HCT 33.7 % (39.0-53.0); HGB 10.4 gm/dL (13.0-17.5); Hypochromasia Marked; Lymphocytes # (A) 0.5 k/uL (1.0-4.8); Lymphocytes % (A) 6 %; MCH 26.2 pg (25.0-35.0); MCHC 30.8 g/dL (31.0-37.0); MCV 85.1 fL (80.0-100.0); Mean Platelet Volume 7.2; Monocytes # (A) 0.1 k/uL (0-1.0); Monocytes % (A) 2 %; Neutrophils # (A) 7.5 k/uL (1.3-7.7); Neutrophils % (A) 92 %; Platelet Count 224 k/uL (150-450); RBC 3.96 m/uL (4.30-5.90); RDW 14.4 % (11.5-15.5); WBC 8.2 k/uL (3.8-10.6)
[2021-03-20 05:49] LABS: African American GFR (CKD) >90 (>60 ml/min/1.73 sqM); Anion Gap 4 mmol/L; Blood Urea Nitrogen 14 mg/dL (9-20); Calcium 8.8 mg/dL (8.4-10.2); Carbon Dioxide 31 mmol/L (22-30); Chloride 98 mmol/L (98-107); Glucose 139 mg/dL (74-99); Magnesium 2.1 mg/dL (1.6-2.3); Non-African American GFR(CKD) >90 (>60 ml/min/1.73 sqM); Potassium 4.4 mmol/L (3.5-5.1); Sodium 133 mmol/L (137-145)
[2021-03-20] MEDS: PANTOPRAZOLE 40 MG TABLET PO SCH (08:12)
[2021-03-20] MEDS: FOLIC ACID 1 MG TAB PO SCH (08:12)
[2021-03-20] MEDS: SERTRALINE 50 MG TAB PO SCH (08:12)
[2021-03-20] MEDS: LOSARTAN 50 MG TAB PO SCH (08:13)
[2021-03-20] MEDS: HEPARIN SODIUM,PORCINE/PF 5,000 UNIT/0.5 ML SYRINGE SQ SCH ×2 (08:14→21:47)
[2021-03-20] MEDS: methylPREDNISolone SOD SUCCI 125 MG/2 ML VIAL IV SCH ×3 (08:16→21:47)
[2021-03-20] MEDS: SODIUM CHLORIDE 0.9% 1,000 ML IV SCH ×2 (08:33→15:28)
[2021-03-20] MEDS ORDERED: AZITHROMYCIN 500 MG TAB PO SCH (09:00)
[2021-03-20] MEDS ORDERED: cefTRIAXone IN SWFI 1,000 MG/10 ML SYRINGE IVP SCH (09:00)
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
[2021-03-20] MEDS: IPRATROPIUM-ALBUTEROL 3 ML NEB INHALATION SCH ×4 (11:30→23:29)
[2021-03-20] MEDS: BENZOCAINE/MENTHOL LOZENG 1 EACH LOZENGE MUCOUS MEM PRN ×2 (11:43→15:45)
[2021-03-20] MEDS: PREGABALIN 75 MG CAP PO PRN (13:35)
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
[2021-03-20] MEDS: SYMBICORT 160-4.5 MCG INHALER INHALATION SCH (20:03)
[2021-03-21] MEDS: methylPREDNISolone SOD SUCCI 125 MG/2 ML VIAL IV SCH ×3 (02:08→15:35)
[2021-03-21] MEDS: SODIUM CHLORIDE 0.9% 1,000 ML IV SCH (03:50)
[2021-03-21] MEDS: IPRATROPIUM-ALBUTEROL 3 ML NEB INHALATION SCH ×3 (05:28→12:21)
[2021-03-21] MEDS: hydrALAZINE HCL 50 MG TAB PO SCH ×2 (05:45→15:34)
[2021-03-21] MEDS: cloNIDine HCL 0.1 MG TAB PO SCH ×2 (05:45→15:35)
[2021-03-21] MEDS: SYMBICORT 160-4.5 MCG INHALER INHALATION SCH (07:49)
[2021-03-21] MEDS: BENZOCAINE/MENTHOL LOZENG 1 EACH LOZENGE MUCOUS MEM PRN ×2 (08:37→15:34)
[2021-03-21] MEDS: PANTOPRAZOLE 40 MG TABLET PO SCH (08:37)
[2021-03-21] MEDS: HYDROcodone/APAP 5-325MG 1 EACH TAB PO PRN ×2 (08:37→15:33)
[2021-03-21] MEDS: FOLIC ACID 1 MG TAB PO SCH (08:37)
[2021-03-21] MEDS: HEPARIN SODIUM,PORCINE/PF 5,000 UNIT/0.5 ML SYRINGE SQ SCH (08:37)
[2021-03-21] MEDS: LOSARTAN 50 MG TAB PO SCH (08:38)
[2021-03-21] MEDS: SERTRALINE 50 MG TAB PO SCH (08:38)
[2021-03-21] MEDS: PREGABALIN 75 MG CAP PO PRN (08:43)
[2021-03-21 15:01] VITALS: BP 128/74; PULSE 94; RESP 18; TEMP 98
--- NOTE | 2021-03-21 16:31 | P.PN ---
Subjective Progress Note Date: 03/21/21 A 55-year-old male well-known to me. We typically see the patient over at [facility]. He does have severe COPD. The patient sees Dr. David as his membership correspondent. We have never seen him in the office. We typically see him at [facility]. For some reason, during his last hospitalization at the outside hospital, the patient was made to be a hospice patient. Anyway, the patient is brought to the emergency room by EMS, on March 19 complaining of shortness of breath. This is his usual complaint. He does have a history of severe COPD. He quit smoking a while back. In route to the hospital, he received some breathing treatments, and was placed on BiPAP. Currently, he's pretty much at baseline. He states he feels much improved. Actually he was asking for some pain medication because his lungs "burned". He has a history of COPD, gastrointestinal bleed, hypertension, hyperlipidemia, dementia, gastric ulcer, head injury, and alpha 1 antitrypsin deficiency. White count 8.2, hemoglobin 10.4, hematocrit 33.7, and platelet count 224,000. Sodium 133, potassium 4.4, chlorides 98, CO2 31, anion gap 4, BUN 14, creatinine 0.6. The rest of his labs look okay. Testing for coronavirus was negative. Chest x-ray shows some patchy changes, which I believe a more chronic than acute. Pro- calcitonin level was 0.08. The patient is seen today 08/19/2021 in follow-up on the regular medical floor. He is currently sitting up in bed. Awake and alert in no acute distress. He is maintaining O2 saturations in the 90s on 4 L/m per nasal cannula. Still with a faint end expiratory wheeze. Feeling back to his baseline. He's been afebrile. Hemodynamically stable. The cultures revealed no growth. He is continued on IV Solu-Medrol, Symbicort and DuoNeb inhalations, heparin for DVT prophylaxis. Objective - Vital Signs Vital signs: Vital Signs Temp 98 F 03/21/21 14:20 Pulse 94 03/21/21 14:20 Resp 18 03/21/21 14:20 BP 128/74 03/21/21 14:20 Pulse Ox 98 03/21/21 14:20 Intake & Output 03/20/21 03/21/21 03/21/21 18:59 06:59 18:59 Intake Total 200 360 Output Total 2049 Balance 200 -700 -1690 Intake: Oral 200 360 Output: Urine 2049 Other: Voiding Method Bedside Commode Bedside Commode Bedside Commode Urinal Urinal Urinal # Voids 6 10 # Bowel Movements 1 - Exam GENERAL EXAM: Alert, 55-year-old male patient, on 4 L nasal cannula, comfortable in no apparent distress. HEAD: Normocephalic. EYES: Normal reaction of pupils, equal size. NOSE: Clear with pink turbinates. THROAT: No erythema or exudates. NECK: No masses, no JVD. CHEST: No chest wall deformity. LUNGS: Equal air entry with faint end expiratory wheeze CVS: S1 and S2 normal with no audible murmur, regular rhythm. ABDOMEN: No hepatosplenomegaly, normal bowel sounds, no guarding or rigidity. SPINE: No scoliosis or deformity SKIN: No rashes CENTRAL NERVOUS SYSTEM: No focal deficits, tone is normal in all 4 extremities. EXTREMITIES: There is no peripheral edema. No clubbing, no cyanosis. Peripheral pulses are intact. - Labs CBC & Chem 7: 03/20/21 04:10 03/20/21 04:10 Labs: Microbiology - Last 24 Hours (Table) 03/19/21 21:30 Blood Culture - Preliminary Blood No Growth after 24 hours 03/19/21 21:45 Blood Culture - Preliminary Blood No Growth after 24 hours Assessment and Plan Assessment: 1 Acute exacerbation of COPD, mild in severity. 2 Severe/stage IV COPD, from previous heavy tobacco use. 3 History of alpha 1 antitrypsin deficiency. 4 History of gastrointestinal bleed. 5 History of hyperlipidemia. 6 History of hypertension. 7 History of gastric ulcer. 8 History of closed head injury. Plan: The patient was seen and evaluated Cleared for discharge from the pulmonary standpoint He has home oxygen, nebulized treatments, prednisone taper Follow-up in the office in 1-2 weeks' I, the cosigning physician, performed a history & physical examination of the patient. Lungs sounds with faint index. Wheeze, diminished. Maintaining good O2 saturations in the 90s on 4 L/m per nasal cannula I discussed the assessment and plan of care with my nurse practitioner, Ruth Ann Marie. I attest to the above note as dictated by her.
--- NOTE | 2021-03-21 21:24 | P.DS ---
Providers Date of admission: 03/19/21 21:01 Attending physician: Victor Hugo Barone MD Consults: 03/19/21 21:01 Consult Physician Routine Consulting Provider: Martín Ceballos Consult Reason/Comments: OPD exacerbation with pneumonia Do you want consulting provider notified?: Yes Primary care physician: Niall Alexander [facility] Course: Diagnoses: Acute COPD exacerbation Possible atypical pneumonia alpha-1 antitrypsin deficiency. Chronic hypoxic respiratory failure on 4 L/m of oxygen Hypertension Hyperlipidemia History of gastric ulcer History of memory impairment History of bilateral leg cramps Hospital course: This is a pleasant 55 years old male with past medical history of COPD, GI Bleed, Hyperlipidemia, Hypertension, Memory Impairment, gastric ulcer, bilateral legs muscle spasm. Also patient with history of alpha-1 antitrypsin deficiency. He follows up with his oncology transplant network manager Dr. David as an outpatient Patient presents because of worsening dyspnea of 2 days' duration found to have acute COPD exacerbation, he was treated with Symbicort and normal saline, pulmonary team evaluated the patient. Call the test was negative.procalcitonin was normal. Patient seen by Dr. Ceballos yesterday without he is at his baseline. Patient monitored for another 24 hours and today he was doing well, his breathing was at baseline still have some scattered wheezing which looks like this is chronic. He is at 4 L per minute of oxygen via nasal cannula which is his baseline as well. No other complaints, no chest pain or dizziness. No nausea vomiting. No diarrhea or dysuria. No fever. Patient was cleared for discharge pulmonary team I discussed the case with pulmonary team and they cleared him for discharge on tapered dose of steroids every 4 days and nebulizer prescription which is provided upon discharge Problems and management plan were discussed with the patient and he verbalized understanding and acceptance Patient was found stable and can be discharged home however he needs follow-up as an outpatient. Patient was instructed to follow up with PCP Dr. OLGUIN within one week and patient agrees Patient was instructed to follow up with his oncology transplant network manager Dr. David in 7-10 days and he agrees to call and make appointments as today's weekend Physical exam Gen: patient is a AAOx3, no distress CVS: S1-S2, RRR, no murmur -Lungs: B/L CTA, bilateral mild scattered wheezing. On 4 L/m of oxygen via n gloria cannula Abdomen: soft, no distention, no tenderness, positive bowel sounds Extremity: no leg edema or induration Time spent more than 35 minutes Patient Condition at Discharge: Fair Plan - Discharge Summary Discharge Rx Participant: Yes New Discharge Prescriptions: New predniSONE 10 mg PO DIRECTED #40 tab Continue Omeprazole 20 mg PO DAILY Albuterol Sulfate [Ventolin HFA] 2 puff INHALATION RT-Q6H PRN PRN Reason: Shortness Of Breath Sertraline HCl [Zoloft] 50 mg PO DAILY HYDROcodone/APAP 5-325MG [[place] 5-325] 1 tab PO Q6HR PRN PRN Reason: Pain Folic Acid 1 mg PO DAILY Pregabalin [Lyrica] 75 mg PO Q8H PRN PRN Reason: Pain Losartan Potassium 50 mg PO DAILY hydrALAZINE HCL 50 mg PO Q8H cloNIDine HCL [Catapres] 0.1 mg PO Q8H Changed Ipratropium-Albuterol Nebulize [Duoneb 0.5 mg-3 mg/3 ml Soln] 3 ml INHALATION RT-Q6H PRN #1 each PRN Reason: Shortness Of Breath Or Wheezing Discharge Medication List Omeprazole 20 mg PO DAILY 11/13/18 [History] Albuterol Sulfate [Ventolin HFA] 2 puff INHALATION RT-Q6H PRN 08/19/19 [History] Folic Acid 1 mg PO DAILY 03/19/21 [History] HYDROcodone/APAP 5-325MG [[place] 5-325] 1 tab PO Q6HR PRN 03/19/21 [History] Losartan Potassium 50 mg PO DAILY 03/19/21 [History] Pregabalin [Lyrica] 75 mg PO Q8H PRN 03/19/21 [History] Sertraline HCl [Zoloft] 50 mg PO DAILY 03/19/21 [History] cloNIDine HCL [Catapres] 0.1 mg PO Q8H 03/19/21 [History] hydrALAZINE HCL 50 mg PO Q8H 03/19/21 [History] Ipratropium-Albuterol Nebulize [Duoneb 0.5 mg-3 mg/3 ml Soln] 3 ml INHALATION RT-Q6H PRN #1 each 03/21/21 [Rx] predniSONE 10 mg PO DIRECTED #40 tab 03/21/21 [Rx] Follow up Appointment(s)/Referral(s): None,Stated [REFERRING] - 1-2 days Moe David MD [STAFF PHYSICIAN] - 1 Week (office closed at time of disch arge. Please call Tuesday to schedule appointment) Niall Alexander MD [Primary Care Provider] - 1-2 Days (Please call [facility] to schedule appointment ) Patient Instructions/Handouts: COPD (Chronic Obstructive Pulmonary Disease) (GEN), Chronic Lung Disease and Infection Prevention (DC) Activity/Diet/Wound Care/Special Instructions: Heart healthy diet, low carbohydrate diet 1800 k abram per day Activity is restricted till you see your doctor Discharge Disposition: HOME SELF-CARE
== END 2021-03-21 16:55 | disposition home or self-care (01) ==
LOC: EC 16:36 → OBSVTOIN 21:01 → 4SSUR 21:01 → INTOOBSV 21:01 → 4SSUR 22:46 → UNDODISIN 03-21 16:55
PROVIDERS: ADMIT Internal Medicine; ATTEND Internal Medicine
DX: J44.1 Chronic obstructive pulmonary disease with (acute) exacerbation (principal); E88.01 Alpha-1-antitrypsin deficiency; J96.11 Chronic respiratory failure with hypoxia; I10 Essential (primary) hypertension; E78.5 Hyperlipidemia, unspecified; Z87.11 Personal history of peptic ulcer disease; R41.3 Other amnesia; Z87.19 Personal history of other diseases of the digestive system; R25.2 Cramp and spasm; D72.829 Elevated white blood cell count, unspecified; R00.0 Tachycardia, unspecified; R73.02 Impaired glucose tolerance (oral); K42.9 Umbilical hernia without obstruction or gangrene; E66.9 Obesity, unspecified; Z68.34 Body mass index [BMI] 34.0-34.9, adult; F41.9 Anxiety disorder, unspecified; F03.90 Unspecified dementia, unspecified severity, without behavioral disturbance, psychotic disturbance, mood disturbance, and anxiety; Z20.822 Contact with and (suspected) exposure to COVID-19; Z87.891 Personal history of nicotine dependence; Z87.01 Personal history of pneumonia (recurrent); Z86.79 Personal history of other diseases of the circulatory system; Z99.81 Dependence on supplemental oxygen; Z79.899 Other long term (current) drug therapy; Z81.8 Family history of other mental and behavioral disorders; Z84.1 Family history of disorders of kidney and ureter; Z83.2 Family history of diseases of the blood and blood-forming organs and certain disorders involving the immune mechanism
CPT/HCPCS: 96376 ×3; 96361 ×2; 96372 ×2; 96365; 96366; 96367; 96375; 99291; 36415; 94660; 94640 ×4; 94760; 93005 ×2; 85379; 83880; 80053; 80048; 83605; 83735 ×2; 84484; 85025 ×2; 85610; 85730; 87040; 83036; 84145; 87635; 71045; G0378 ×3; G0480; S4990; J2060; J2930 ×3; J0696; J1956; J3475; J1644 ×2; 80320